=== PATIENT | female | born 1950 | race Caucasian/White ===

== ENCOUNTER 2024-12-31 22:55 | Emergency (ER) | payer MEDICARE, OTHER, SELFPAY ==
--- OUTSIDE RECORDS SUMMARY | 2024-12-28 16:39 | XMS_ITS | Encounter Summary ---
Author Organization [facility] Address [address] [place] [address] Care Team Providers Care Installment Agent Name Role Phone Marguerite Fernández DO Primary Care Provider Reason for Visit * Reason Comments Fall Rib Pain left Encounter Details Date Type Department Care Team (Late st Contact Info) Description 12/28/2024 4:39 PM CDT - 12/28/2024 5:43 PM CDT Emergency [facility] Emergency Medicine [address] [facility] [address] [place] [address] Gasper Alonzo MD [address] [place] [address] [place] [address] Closed fracture of one rib of left side, initial encounter (Primary Dx) Discharge Disposition: Home or Self Care Social History Tobacco Use Types Packs/Day Years Used Date Smoking Tobacco: Former Cigarettes 0.3 5 0 10/14/1979 - 10/13/1984 Passive Smoke Exposure: Never Smokeless Tobacco: Never Alcohol Use Standard Drinks/Week Comments Never 0 (1 standard drink = 0.6 oz pur e alcohol) Feeling Safe Answer Date Recorded Within the last year, have y ou been afraid of your partner or ex-partner? Not asked 07/21/2019 Within the last year, have y ou been humiliated or emotionally abused in other ways by your partner or ex-partner? Not asked Within the last year, have y ou been kicked, hit, slapped, or otherwise physically hurt by your partner or ex-partner? Not asked 07/21/2019 Within the last year, have y ou been raped or forced to have any kind of sexual activity by your partner or ex-partner? Not asked 07/21/2019 Social Connections Answer Date Recorded In a typical week, how many times do you talk on the phone with family, friends, or neighbors? Not asked 07/21/2019 How often do you get together with friends or re latives? Not asked 07/21/2019 How often do you attend zoroastrian or lutheran serv ices? Not asked 07/21/2019 Do you belong to any clubs o r organizations such as zoroastrian groups, unions, fraternal or athletic groups, or school groups? Not asked 07/21/2019 How often do you attend meet ings of the clubs or organizations you belong to? Not asked 07/21/2019 Are you , , di vorced, , never , or living with a partner? Not asked 07/21/2019 Financial Resource Strain Answer Date R ecorded How hard is it for you to pa y for the very basics like food, housing, medical care, and heating? Not very hard 06/09/2022 Food Insecurity Answer Date Recorded In the past 12 months, have you worried that your food would run out before you had money to buy more? Sometimes true 2022 In the past 12 months, did y ou run out of food and didn't have money to buy more? Sometimes true 06/09/2022 Transportation Needs Answer Date Record ed In the past 12 months, has l ack of transportation kept you from medical appointments or from getting medications? No 06/09/2022 Lack of Transportation (Non-Medical) Not on file 06/09/2022 Food Insecurity Answer Date Recorded Do you find you are eating l ess than you should because you can t pay for food? No 12/28/2024 Transportation Needs Answer Date Record ed Have you gone without health care because you didn t have a way to get there? 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 No 2024 Housing Stability Answer Date Recorded Do you worry you won t have a steady place to sleep or struggle to pay rent or mortgage? No 12/28/2024 Utility Needs Answer Date Recorded Do you have difficulty payin g for utility costs (electric, water or gas bills)? No 12/28/2024 Medication Needs Answer Date Recorded Have you skipped taking medi cation due to cost or worry you can t afford new medications? No 12/28/2024 Feeling Safe Answer Date Recorded Are you in a relationship wi th someone who hurts you emotionally and/or physically? 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 Gender Identity Not on file Sexual Orientation Not on file documented as of this encounter Last Filed Vital Signs Vital Sign Reading Time Taken Comments Blood Pressure 154/77 12/28/2024 5:30 PM CDT Pulse 88 12/28/2024 5:30 PM CDT Temperature 36.7 C (98 F) 12/28/2024 5:30 PM CDT Respiratory Rate 16 12/28/2024 5:30 PM CDT Oxygen Saturation 98% 12/28/2024 5:30 PM CDT Inhaled Oxygen Concentration - - Weight 100.4 kg (221 lb 6.4 oz) 12/28/2024 4:42 PM CDT Height 162.6 cm (5' 4 ) 12/28/2024 4:42 PM CDT Body Mass Index 38 12/28/2024 4:42 PM CDT documented in this encounter Discharge Instructions * Attachments The following attachments cannot be sent through Care Everywhere. * Rib Fracture (Paraguayan) * Hydrocodone ([place]aguayan) documented in this encounter Medications at Time of Discharge blood sugar diagnostic (OneTouch Verio test strips) StripIndications :Type 2 diabetes mellitus with stage 3b chronic kidney disease, without long-term current use of insulin USE 1 STRIP TO CHECK GLUCOSE ONCE DAILY 100 Each 6 12/28/2024 HYDROcodone-acet aminophen (NORCO) 5-325 mg tabletIndication s:Closed fracture of one rib of left side, initial encounter Take 1-2 Tablets by mouth every 6 hours as needed for Pain. 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 shake before using 16 Gram 06/14/2024 Restasis MultiDose 0.05 % Drops Administer 1 Drop in both eyes 2 times daily. 06/11/2023 BIOTIN ORAL Take 1 Tablet by mouth daily. OTHER 02/21/2020 acetaminophen (TYLENOL) 325 mg tablet Take 650 mg by mouth 1 time daily as needed for Pain or Other (See Comment) (spasms). 12/08/2018 CALCIUM-VITAMIN D3 ORAL Take 1 Tablet by mouth 2 times daily. 12/08/2018 documented as of this encounter ED Notes * Aliya Saldana RN - 12/28/2024 5:24 PM CDT Provider at bedside. * Aliya Saldana RN - 12/28/2024 5:23 PM CDT Water provided to patient * Aliya Saldana RN - 12/28/2024 5:02 PM CDT Back to room * Aliya Saldana RN - 12/28/2024 4:51 PM CDT Radiology at bedside to take patient to radiology by wheelchair with tech * Aliya Saldana RN - 12/28/2024 4:42 PM CDT Provider at bedside. * Aliya Saldana RN - 12/28/2024 4:42 PM CDT Patient arrives by [facility]. Patient awake alert and oriented x 4. Complains of left rib pain thathurts with movement and deep breathing. Patient states she was at [facility] walking fast and her foot got caught on a stump causing her to fall into a tree, hitting her left side. Denies any heador neck injury or pain. Denies any other injury or loss of consciousness. Abrasions to left breast. Friend at bedside * Gasper Alonzo MD - 12/28/2024 4:38 PM CDT HISTORY OF PRESENT ILLNESS Natalie Mayo, a 74 y.o. female presents to the ED with a Chief Complaint of Fall and Rib Pain Subjective This patient is a 74-year-old white female who fell while she was walking on a trail just prior to arrival. She landed on her left rib cage and has significant pain there. Did not strike her head. She has no neck pain. No pain in her extremities. REVIEW OF SYSTEMS Review of Systems Constitutional: Negative for activity change, appetite change, chills, diaphoresis, fatigue and fever. HENT: Negative for congestion, dental problem, ear pain, postnasal drip, rhinorrhea, sinus pressure, sore throat, tinnitus and trouble swallowing. Eyes: Negative for photophobia, pain, discharge, redness and visual disturbance. Respiratory: Negative for cough, chest tightness, shortness of breath and wheezing. Cardiovascular: Negative for chest pain, palpitations and leg swelling. Gastrointestinal: Negative for abdominal distention, abdominal pain, blood in stool, constipation, diarrhea, nausea and vomiting. Genitourinary: Negative for decreased urine volume, difficulty urinating, dyspareunia, dysuria, flank pain, frequency, hematuria, menstrual problem, pelvic pain, urgency, vaginal bleeding and vaginaldischarge. Musculoskeletal: Negative for arthralgias, back pain, gait problem, joint swelling, myalgias, neck pain and neck stiffness. Left rib pain. Skin: Negative for color change and rash. Neurological: Negative for dizziness, seizures, speech difficulty, weakness, light-headedness, numbness and headaches. Hematological: Negative for adenopathy. Psychiatric/Behavioral: Negative for agitation, behavioral problems, confusion, dysphoric mood, hallucinations, self-injury, sleep disturbance and suicidal ideas. The patient is not nervous/anxious. All other systems reviewed and are negative. 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 SURGICAL: Patient has a past surgical history that includes breast lumpectomy for cancer (10-16-2008); pr mastectomy simple complete (Bilateral, 01/28/2016); core needle breast biopsy (10-06-2008); pr mastectomy partial w/axillary lymphadenectomy (10/16/2008); pr bx/exc lymph node open deep axillary node (Left, 01/28/2016); section; surgical other; surgical other; hysterectomy (1985); thyroid surgery; pr breast reconstruc w othr techniq (Bilateral, 01/28/2016); us biopsy liver (11/05/09); us biopsy liver (06/04/10); parathyroidectomy (2000); appendectomy (1985); pt denies relevant surgical history (1985,2000,2008,2016); and parathyroid gland surgery (2000). FAMILY: Patient's family history includes Breast Cancer in her father, mother, and son; Breast Cancer (age of onset: 56) in her sister; Colon Cancer in her father. SOCIAL: reports that she quit smoking about 40 years ago. Her smoking use included cigarettes. She started smoking about 45 years ago. She has a 1.3 pack-year smoking history. She has never been exposed to tobacco smoke. She has never used smokeless tobacco. She reports that she is not currently sexually active and has had partner(s) who are male. She reports using the following method of control/protection: None. She reports that she does not drink alcohol and does not use drugs. No history on file. Social History Other Topics Concern Not on file ALLERGIES Iodinated contrast media and Latex HOME MEDICATIONS Discharge Medication List as of 12/28/2024 5:43 PM START taking these medications Details HYDROcodone-acetaminophen (NORCO) 5-325 mg tablet Take 1-2 Tablets by mouth every 6 hours as neededfor Pain. Max Daily Amount: 8 Tablets, Disp-30 Tablet, R-0 CONTINUE these medications which have NOT CHANGED Details LORazepam (ATIVAN) 1 mg tablet TAKE ONE TABLET BY MOUTH EVERY DAY NEEDED FOR ANXIETYThis prescription was filled on 11/07/2024. Any refills authorized will be placed on file.Disp-30 Tablet, R-2 anastrozole (ARIMIDEX) 1 mg tablet TAKE ONE TABLET BY MOUTH DAILYThis prescription was filled on 07/13/2024. Any refills authorized will be placed on file.Disp-90 Tablet, R-3 SITagliptin phosphate (Januvia) 50 mg Tablet TAKE ONE-HALF TABLET BY MOUTH DAILY with BREAKFASTThisprescription was filled on 07/13/2024. Any refills authorized will be placed on file.Disp-45 Tablet,R-2 levothyroxine 100 mcg tablet TAKE ONE TABLET BY MOUTH DAILY IN THE MORNINGThis prescription was filled on 07/13/2024. Any refills authorized will be placed on file.Disp-90 Tablet, R-1 fluticasone propionate (FLONASE) 50 mcg/spray [place], Suspension nasal inhaler Administer 2 Sprays in each nostril daily. shake before using, Disp-16 Gram, R-0 Restasis MultiDose 0.05 % Drops Administer 1 Drop in both eyes 2 times daily., RUMA BIOTIN ORAL Take 1 Tablet by mouth daily. acetaminophen (TYLENOL) 325 mg tablet Take 650 mg by mouth 1 time daily as needed for Pain or Other(See Comment) (spasms). CALCIUM-VITAMIN D3 ORAL Take 1 Tablet by mouth 2 times daily. blood sugar diagnostic (APTwaterTouch Verio test strips) Strip USE 1 STRIP TO CHECK GLUCOSE ONCE DAILY, Disp-100 Each, R-6 OTHER STOP taking these medications venlafaxine (EFFEXOR XR) 75 mg Extended Release 24 hour capsule Comments: Reason for Stopping: traZODone (DESYREL) 50 mg tablet Comments: Reason for Stopping: [id number]-[id number]-EPA-fish oil 1,000 mg Capsule Comments: Reason for Stopping: MULTIVITAMIN ORAL Comments: Reason for Stopping: Objective PHYSICAL EXAM INITIAL VS BP: (!) 159/101 (12/28/24 1642), Heart Rate: 84 bpm (12/28/24 1642), Resp: 24 (12/28/24 1642), Pulse: 81 (12/28/24 1705), Temp: 98.4 ??F (36.9 ??C) (12/28/241641), Temp src: Temporal (12/28/241641), SpO2: 99 % (12/28/241641), Height: 5' 4 (162.6 cm) (12/28/241641), Weight: 100.4 kg (221 lb 6.4oz) (12/28/241641), BMI (Calculated): (!) 37.97 (12/28/241641) No LMP recorded (lmp unknown). Patient is postmenopausal. Physical Exam Vitals and nursing note reviewed. Constitutional: General: She is in acute distress. Appearance: She is well-developed. HENT: Head: Normocephalic and atraumatic. Eyes: Conjunctiva/sclera: Conjunctivae normal. Pupils: Pupils are equal, round, and reactive to light. Cardiovascular: Rate and Rhythm: Normal rate and regular rhythm. Heart sounds: Normal heart sounds. Pulmonary: Effort: Pulmonary effort is normal. No respiratory distress. Breath sounds: Normal breath sounds. Abdominal: General: Bowel sounds are normal. Palpations: Abdomen is soft. Tenderness: There is no abdominal tenderness. Musculoskeletal: General: Tenderness present. Normal range of motion. Cervical back: Normal range of motion and neck supple. Comments: Tenderness over the left lateral rib cage. Skin: General: Skin is warm and dry. Neurological: Mental Status: She is alert and oriented to person, place, and time. Cranial Nerves: No cranial nerve deficit. Psychiatric: Behavior: Behavior normal. Thought Content: Thought content normal. DIAGNOSTICS LAB: No data to display RADIOLOGY: XR RIBS UNILATERAL LEFT W PA CHEST Radiologist Impression EKG: PROCEDURES Procedures MEDICAL DECISION MAKING AND PLAN OF CARE Medical Decision Making Chest x-ray with left rib films reveal a nondisplaced eighth rib fracture. No hemothorax or pneumothorax. Patient was given morphine in the emergency department for pain. She was discharged in stablecondition with a prescription for hydrocodone. Follow-up with primary care physician as needed. Amount and/or Complexity of Data Reviewed Radiology: ordered. Risk Prescription drug management. Clinical Scoring & Consults Medications Administered During the ED Stay from 12/28/2024 1639 to 12/29/2024 1050 Date/Time Order Dose Route Action 12/28/2024 1651 CDT morphine 4 mg/mL injection 4 mg 4 mg IV Given 12/28/2024 1650 CDT ondansetron (ZOFRAN) 4 mg/2 mL injection 4 mg 4 mg IV Given 12/28/2024 1653 CDT sodium chloride flush injection 10 mL 10 mL IV Given 12/28/2024 1651 CDT sodium chloride flush injection 10 mL 10 mL IV Given 12/28/2024 1648 CDT sodium chloride flush injection 10 mL 10 mL IV Given Discharge Medication List as of 12/28/2024 5:43 PM START taking these medications Details HYDROcodone-acetaminophen (NORCO) 5-325 mg tablet Take 1-2 Tablets by mouth every 6 hours as neededfor Pain. Max Daily Amount: 8 Tablets, Disp-30 Tablet, R-0 CONTINUE these medications which have NOT CHANGED Details LORazepam (ATIVAN) 1 mg tablet TAKE ONE TABLET BY MOUTH EVERY DAY NEEDED FOR ANXIETYThis prescription was filled on 11/07/2024. Any refills authorized will be placed on file.Disp-30 Tablet, R-2 anastrozole (ARIMIDEX) 1 mg tablet TAKE ONE TABLET BY MOUTH DAILYThis prescription was filled on 07/13/2024. Any refills authorized will be placed on file.Disp-90 Tablet, R-3 SITagliptin phosphate (Januvia) 50 mg Tablet TAKE ONE-HALF TABLET BY MOUTH DAILY with BREAKFASTThisprescription was filled on 07/13/2024. Any refills authorized will be placed on file.Disp-45 Tablet,R-2 levothyroxine 100 mcg tablet TAKE ONE TABLET BY MOUTH DAILY IN THE MORNINGThis prescription was filled on 07/13/2024. Any refills authorized will be placed on file.Disp-90 Tablet, R-1 fluticasone propionate (FLONASE) 50 mcg/spray [place], Suspension nasal inhaler Administer 2 Sprays in each nostril daily. shake before using, Disp-16 Gram, R-0 Restasis MultiDose 0.05 % Drops Administer 1 Drop in both eyes 2 times daily., RUMA BIOTIN ORAL Take 1 Tablet by mouth daily. acetaminophen (TYLENOL) 325 mg tablet Take 650 mg by mouth 1 time daily as needed for Pain or Other(See Comment) (spasms). CALCIUM-VITAMIN D3 ORAL Take 1 Tablet by mouth 2 times daily. blood sugar diagnostic (OneTouch Verio test strips) Strip USE 1 STRIP TO CHECK GLUCOSE ONCE DAILY, Disp-100 Each, R-6 OTHER STOP taking these medications venlafaxine (EFFEXOR XR) 75 mg Extended Release 24 hour capsule Comments: Reason for Stopping: traZODone (DESYREL) 50 mg tablet Comments: Reason for Stopping: msavy-9-FYR-EPA-fish oil 1,000 mg Capsule Comments: Reason for Stopping: MULTIVITAMIN ORAL Comments: Reason for Stopping: LAST VS BP: (!) 154/77 (12/28/241729), Heart Rate: 87 bpm (12/28/241729), Resp: 16 (12/28/241729), Pulse: 88 (12/28/241729), Temp: 98 ??F (36.7 ??C) (12/28/241729), Temp src: Temporal (12/28/241729), SpO2: 98 % (12/28/241729) CLINICAL IMPRESSION Diagnosis Diagnosis Comment Added By Time Added Closed fracture of one rib of left side, initial encounter [S22.32XA] Gasper Alonzo MD 12/28/2024 5:40 PM DISPOSITION, EDUCATION AND MEDICATION RECONCILIATION Medications reconciled. See after visit summary for patient education on discharged patients. ED Disposition ED Disposition Discharge Condition Stable User Gasper Alonzo MD Date/Time ThuDec 28, 2024 5:34 PM Comment -- ATTESTATION STATEMENTS documented in this encounter Miscellaneous Notes * Gen AI SERA - GENERATIVE AI HANDOFF NOTE - 12/29/2024 11:43 PM CDT ## ER_course: ## # DIAGNOSIS: Closed fracture of one rib on the left side. The patient, Natalie Mayo, a 74-year-old female, presented to the ED with left rib pain after a fall while walking on a trail. She reported significant pain in the left rib cage but denied any head or neck injury. The patient was in acute distress upon arrival. # During the ER visit, a chest x-ray with left rib films revealed a nondisplaced eighth rib fracture. There was no evidence of hemothorax or pneumothorax. The patient was administered morphine for pain management and ondansetron for nausea. Her vital signs showed elevated blood pressure at 159/101 and a BMI of 37.97, indicating obesity. ## Follow_up_orders: ## # The patient was discharged with a prescription for hydrocodone-acetaminophen (NORCO) 5-325 mg tablets, to be taken 1-2 tablets by mouth every 6 hours as needed for pain, with a maximum daily amount of 8 tablets. # Follow-up with the primary care physician as needed was recommended. ## Home_Situation: ## # No specific factors potentially impairing follow-up care were noted in the ER notes. The patient has a history of various medical conditions, including chronic kidney disease and diabetes, which may require ongoing management. documented in this encounter Plan of Treatment Upcoming Encounters Date Type Department Care Team (Late st Contact Info) Description 01/05/2025 9:40 AM CDT Office Visit [facility] Medicine [place] [address] [place] [address] Marguerite Fernández, DO [address] [place] [address] 01/16/2025 10:45 AM CDT Office Visit [facility] Endocrinology [facility] [address] [place] [address] Alfredito Roth PA [address] 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 Appointment [facility] [address] [place] [address] 02/21/2025 11:30 AM BOTTOM LIQUOR ATTENDANT Office Visit [facility] Cancer and Hematology [place] [address] [place] [address] Marisol Samuel, J2EE JAVA DEVELOPER [address] [place] [address] documented as of this encounter Procedures Procedure Name Priority Date/Time Associated Diagnosis Comments TELEMETRY REPORT 12/29/2024 9:22 AM CDT XR RIBS UNILATERAL LEFT W PA CHEST Stat 12/28/2024 5:04 PM CDT documented in this encounter Results * TELEMETRY REPORT (12/29/2024 9:22 AM CDT) us Provider Scanning ECG ORDERABLES Final Result * XR RIBS UNILATERAL LEFT W PA CHEST (12/28/2024 5:04 PM CDT) Anatomical Region Laterality Modality Chest Computed Radiogr aphy 12/28/2024 5:04 PM CDT Narrative 12/28/2024 5:20 PM CDT XR RIBS UNILATERAL LEFT W PA CHEST Reason For Exam: Fall. Diagnosis: See Reason for Exam. COMPARISON: None FINDINGS: Cardiomediastinal silhouette is within normal limits. No focal consolidation, large pleural effusion, or pneumothorax is seen. Nondisplaced left posterior eighth rib fracture is present. Procedure Note Alfredito Kessler MD - 12/28/2024 XR RIBS UNILATERAL LEFT W PA CHEST Reason For Exam: Fall. Diagnosis: See Reason for Exam. COMPARISON: None FINDINGS: Cardiomediastinal silhouette is within normal limits. No focal consolidation, large pleural effusion, or pneumothorax is seen. Nondisplaced left posterior eighth rib fracture is present. Gasper Alonzo MD DIAGNOSTIC IMAGING ORDER KIM Final Result documented in this encounter Visit Diagnoses Diagnosis Closed fracture of one rib of left side, initial encounter- Primary documented in this encounter Administered Medications Inactive Administered Medications - up to 3 most recent administrations Medication Order MAR Action Action Date Dose Rate Site morphine 4 mg/mL injection 4 mg 4 mg, IV, ONE TIME ONLY, 1 dose, On Thu12/28/24 at 1645, Routine Given 12/28/2024 4:51 PM CDT 4 mg ondansetron (ZOFRAN) 4 mg/2 mL injection 4 mg 4 mg, IV, ONE TIME ONLY, 1 dose, On Thu12/28/24 at 1645, Stat Given 12/28/2024 4:50 PM CDT 4 mg sodium chloride flush injection 10 mL 10 mL, IV, SEE ADMIN INSTRUCTIONS, Starting on Thu12/28/24 at 1651, Until Thu12/28/24 at 1948, Stat Given 12/28/2024 4:53 PM CDT 10 mL Given 12/28/2024 4:51 PM CDT 10 mL Given 12/28/2024 4:48 PM CDT 10 mL documented in this encounter Active and Recently Administered Medications Times are shown in CDT. Scheduled Medication Order 12/26/2024 12/27/2024 12/28/2024 morphine 4 mg/mL injection 4 mg (COMPLETED) 4 mg, IV, ONE TIME ONLY, 1 dose, On Thu12/28/24 at 1645, Routine 1651 (Given - Provid er: Aliya Saldana, MATT) ondansetron (ZOFRAN) 4 mg/2 mL injection 4 mg (COMPLETED) 4 mg, IV, ONE TIME ONLY, 1 dose, On Thu12/28/24 at 1645, Stat 1650 (Given - Provid er: Aliya Saldana, MATT) sodium chloride flush injection 10 mL 10 mL, IV, SEE ADMIN INSTRUCTIONS, Starting on Thu12/28/24 at 1651, Until Thu12/28/24 at 1948, Stat 1648 (Given - Provid er: Aliya Saldana RN)165 (Given - Provider: Aliya Saldana, RN)165 (Given - Provider: Aliya Saldana, MATT) documented in this encounter Additional Health Concerns Assessment Noted Time PHQ-9 Depression Total Score: 4 04/05/20 25 3:07 PM CDT documented as of this encounter Care Teams Installment Agent Relationship Specialty Start Date End Date Marguerite Fernández DO [address] [place] [address] PCP - General Family Practice 12/29/18 documented as of this encounter
--- OUTSIDE RECORDS SUMMARY | 2024-12-31 23:01 | XMS_ITS | Encounter Summary ---
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
--- OUTSIDE RECORDS SUMMARY | 2024-12-31 23:01 | XMS_ITS | Encounter Summary ---
Author Organization [facility] Address [address] [place] [address] Care Team Providers Care Computer Science Instructor Name Role Phone Marguerite Fernández DO Primary Care Provider [phone] Encounter Details Date Type Department Care Team (Latest Contact Info) Description 01/18/2001 Outpatient Historical [facility] Dereck Elder Jr., MD [address] [place] [address] RENAL & URETERAL DIS NOS (Primary Dx); Benign hypertension; HYPOCALCEMIA Social History Tobacco Use Types Packs/Day Years Used Date Smoking Tobacco: Never Assessed Comments Unknown Sex and Gender Information Value Date Recorded Sex Assigned at Not on file Legal Sex Female 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
--- OUTSIDE RECORDS SUMMARY | 2024-12-31 23:01 | XMS_ITS | Encounter Summary ---
Author Organization [facility] Address [address] [place] [address] Care Team Providers Care Outbound Sales Consultant Name Role Phone Marguerite Fernández DO Primary Care Provider [phone] Encounter Details Date Type Department Care Team (Latest Contact Info) Description 03/30/2001 Outpatient Historical [facility] Dereck Elder Jr., MD [address] [place] [address] HYPOCALCEMIA (Primary Dx) Social History Tobacco Use Types Packs/Day Years Used Date Smoking Tobacco: Never Assessed Comments Unknown Sex and Gender Information Value Date Recorded Sex Assigned at Not on file 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
--- OUTSIDE RECORDS SUMMARY | 2024-12-31 23:01 | XMS_ITS | Encounter Summary ---
Author Organization [facility] Address [address] [place] [address] Care Team Providers Care Drug Coordinator Name Role Phone Marguerite Fernández DO Primary Care Provider [phone] Encounter Details Date Type Department Care Team (Latest Contact Info) Description 03/18/2001 Outpatient Historical [facility] Endocrinology-[facility] [address] [place] [address] Kobi Hilario MD NO ADDRESS ON FILE HYPOCALCEMIA (Primary Dx); HYPOTHYROIDISM NOS Social History Tobacco Use Types Packs/Day Years Used Date Smoking Tobacco: Never Assessed Comments Unknown Sex and Gender Information Value Date Recorded Sex Assigned at Not on file Legal Sex Female 4:06 AM DATABASE ADMINISTRATION ASSOCIATE Gender Identity Not on file Sexual Orientation Not on file documented as of this encounter Plan of Treatment Not on file documented as of this encounter Visit Diagnoses Diagnosis Hypocalcemia- Primary Unspecified hypothyroidism documented in this encounter Care Teams Drug Coordinator Relationship Specialty Start Date End Date Marguerite Fernández DO [address] [place] [address] PCP - General Family Practice 12/29/18 documented as of this encounter
--- OUTSIDE RECORDS SUMMARY | 2024-12-31 23:01 | XMS_ITS | Encounter Summary ---
Author Organization [facility] Address [address] [place] [address] Care Team Providers Care Nutritional Services Director Name Role Phone Marguerite Fernández DO Primary Care Provider Encounter Details Date Type Department Care Team (Latest Contact Info) Description 01/04/2001 Outpatient Historical [facility] Dereck Elder Jr., MD [address] [place] [address] Hypocalcemia (Primary Dx) Social History Tobacco Use Types Packs/Day Years Used Date Smoking Tobacco: Never Assessed Comments Unknown Sex and Gender Information Value Date Recorded Sex Assigned at Not on file Legal Sex Female 4:06 AM SWABBER Gender Identity Not on file Sexual Orientation Not on file documented as of this encounter Plan of Treatment Not on file documented as of this encounter Visit Diagnoses Diagnosis Hypocalcemia- Primary documented in this encounter Care Teams Nutritional Services Director Relationship Specialty Start Date End Date Marguerite Fernández DO [address] [place] [address] PCP - General Family Practice 12/29/18 documented as of this encounter
--- OUTSIDE RECORDS SUMMARY | 2024-12-31 23:01 | XMS_ITS | Encounter Summary ---
Author Organization [facility] Address [address] [place] [address] Care Team Providers Care Splicing Machine Operator Name Role Phone Marguerite Fernández DO Primary Care Provider [phone] Encounter Details Date Type Department Care Team (Latest Contact Info) Description 01/11/2001 Outpatient Historical [facility] Justo Bhatti MD [address] [place] [address] Other specified aftercare following surgery (Primary Dx) Social History Tobacco Use Types Packs/Day Years Used Date Smoking Tobacco: Never Assessed Comments Unknown Sex and Gender Information Value Date Recorded Sex Assigned at Not on file Legal Sex Female 4:06 AM PLASTIC CABLEMAKING MACHINE OPERATOR Gender Identity Not on file Sexual Orientation Not on file documented as of this encounter Plan of Treatment Not on file documented as of this encounter Visit Diagnoses Diagnosis Other specified aftercare following surgery- Primary documented in this encounter Care Teams Splicing Machine Operator Relationship Specialty Start Date End Date Marguerite Fernández DO [address] [place] [address] PCP - General Family Practice 12/29/18 documented as of this encounter
--- OUTSIDE RECORDS SUMMARY | 2024-12-31 23:01 | XMS_ITS | Encounter Summary ---
Author Organization [facility] Address [address] [place] [address] Care Team Providers Care Application Assistant Name Role Phone Marguerite Fernández DO Primary Care Provider Encounter Details Date Type Department Care Team (Latest Contact Info) Description 05/24/2001 Outpatient Historical [facility] Dereck Elder Jr., MD [address] [place] [address] HYPOCALCEMIA (Primary Dx) Social History Tobacco Use Types Packs/Day Years Used Date Smoking Tobacco: Never Assessed Comments Unknown Sex and Gender Information Value Date Recorded Sex Assigned at Not on file Legal Sex Female 4:06 AM CLAY PIGEON LOADER Gender Identity Not on file Sexual Orientation Not on file documented as of this encounter Plan of Treatment Not on file documented as of this encounter Visit Diagnoses Diagnosis Hypocalcemia- Primary documented in this encounter Care Teams Application Assistant Relationship Specialty Start Date End Date Marguerite Fernández DO [address] [place] [address] PCP - General Family Practice 12/29/18 documented as of this encounter
--- OUTSIDE RECORDS SUMMARY | 2024-12-31 23:01 | XMS_ITS | Encounter Summary ---
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
--- OUTSIDE RECORDS SUMMARY | 2024-12-31 23:01 | XMS_ITS | Encounter Summary ---
Author Organization [facility] Address [address] [place] [address] Care Team Providers Care Metals Analyst Name Role Phone Marguerite Fernández DO Primary Care Provider Encounter Details Date Type Department Care Team (Latest Contact Info) Description 01/11/2001 Outpatient Historical [facility] Endocrinology-[facility] [place] [address] [place] [address] Kobi Hilario MD NO ADDRESS ON FILE Hypocalcemia (Primary Dx); Unspecified hypothyroidism; Unspecified disorder of kidney and ureter Social History Tobacco Use Types Packs/Day Years Used Date Smoking Tobacco: Never Assessed Comments Unknown Sex and Gender Information Value Date Recorded Sex Assigned at Not on file Legal Sex Female 4:06 AM TRANSIT COACH OPERATOR Gender Identity Not on file Sexual Orientation Not on file documented as of this encounter Plan of Treatment Not on file documented as of this encounter Visit Diagnoses Diagnosis Hypocalcemia- Primary Unspecified hypothyroidism Unspecified disorder of kidney and ureter documented in this encounter Care Teams Metals Analyst Relationship Specialty Start Date End Date Marguerite Fernández DO [address] [place] [address] PCP - General Family Practice 12/29/18 documented as of this encounter
--- OUTSIDE RECORDS SUMMARY | 2024-12-31 23:01 | XMS_ITS | Encounter Summary ---
Author Organization [facility] Address [address] [place] [address] Care Team Providers Care Parker Name Role Phone Marguerite Fernández DO Primary Care Provider [phone] Encounter Details Date Type Department Care Team (Latest Contact Info) Description 04/26/2001 Outpatient Historical [facility] Dereck Elder Jr., MD [address] [place] [address] HYPOCALCEMIA (Primary Dx); HYPERPARATHYROIDISM Social History Tobacco Use Types Packs/Day Years Used Date Smoking Tobacco: Never Assessed Comments Unknown Sex and Gender Information Value Date Recorded Sex Assigned at Not on file Legal Sex Female 4:06 AM MURAL ARTIST Gender Identity Not on file Sexual Orientation Not on file documented as of this encounter Plan of Treatment Not on file documented as of this encounter Visit Diagnoses Diagnosis Hypocalcemia- Primary Hyperparathyroidism documented in this encounter Care Teams Parker Relationship Specialty Start Date End Date Marguerite Fernández DO [address] [place] [address] PCP - General Family Practice 12/29/18 documented as of this encounter
--- OUTSIDE RECORDS SUMMARY | 2024-12-31 23:02 | XMS_ITS | Encounter Summary ---
Author Organization [facility] Address [address] [place] [address] Care Team Providers Care Auto Washer Name Role Phone Marguerite Fernández DO Primary Care Provider Encounter Details Date Type Department Care Team (Latest Contact Info) Description 07/18/2002 Outpatient Historical [facility] Endocrinology-[facility] [address] [place] [address] Kobi Hilario MD NO ADDRESS ON FILE HYPOTHYROIDISM NOS (Primary Dx); HYPERPARATHYROIDISM Social History Tobacco Use Types Packs/Day Years Used Date Smoking Tobacco: Never Assessed Comments Unknown Sex and Gender Information Value Date Recorded Sex Assigned at Not on file 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
--- OUTSIDE RECORDS SUMMARY | 2024-12-31 23:02 | XMS_ITS | Encounter Summary ---
Author Organization [facility] Address [address] [place] [address] Care Team Providers Care Enroller Name Role Phone Marguerite Fernández DO Primary Care Provider Encounter Details Date Type Department Care Team (Late st Contact Info) Description 10/21/2000 Outpatient Historical [facility] Kobi Hilario MD NO ADDRESS ON FILE Malig roque thyroid (Primary Dx) Social History Tobacco Use Types Packs/Day Years Used Date Smoking Tobacco: Never Assessed Comments Unknown Sex and Gender Information Value Date Recorded Sex Assigned at Not on file Legal Sex Female 4:06 AM UNIVERSITY TUTOR Gender Identity Not on file Sexual Orientation Not on file documented as of this encounter Plan of Treatment Not on file documented as of this encounter Visit Diagnoses Diagnosis Malig roque thyroid- Primary Malignant neoplasm of thyroid gland documented in this encounter Care Teams Enroller Relationship Specialty Start Date End Date Marguerite Fernández DO [address] [place] [address] PCP - General Family Practice 12/29/18 documented as of this encounter
--- OUTSIDE RECORDS SUMMARY | 2024-12-31 23:02 | XMS_ITS | Encounter Summary ---
Author Organization [facility] Address [address] [place] [address] Care Team Providers Care Health Companion Name Role Phone Marguerite Fernández DO Primary Care Provider Encounter Details Date Type Department Care Team (Latest Contact Info) Description 11/09/2000 Outpatient Historical [facility] Dereck Elder Jr., MD [address] [place] [address] Hypercalcemia (Primary Dx) Social History Tobacco Use Types Packs/Day Years Used Date Smoking Tobacco: Never Assessed Comments Unknown Sex and Gender Information Value Date Recorded Sex Assigned at Not on file 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
--- OUTSIDE RECORDS SUMMARY | 2024-12-31 23:02 | XMS_ITS | Encounter Summary ---
Author Organization [facility] Address [address] [place] [address] Care Team Providers Care Shopfitter Name Role Phone Marguerite Fernández DO Primary Care Provider Encounter Details Date Type Department Care Team (Late st Contact Info) Description 10/31/2009 Ancillary Orders [facility] [address] [place] [address] Andrew Dyer MD [address] [place] [address] Abnormal Mammogram, Unspecified Social History Tobacco Use Types Packs/Day Years Used Date Smoking Tobacco: Former Cigarettes 0 10/14/1979 - 10/13/1981 Alcohol Use Standard Drinks/Week Comments No 0 (1 standard drink = 0.6 oz pur e alcohol) Comments No Sex and Gender Information Value Date Recorded Sex Assigned at Not on file Legal Sex Female 4:06 AM INVERTED BLOCK OPERATOR Gender Identity Not on file Sexual Orientation Not on file documented as of this encounter Plan of Treatment Not on file documented as of this encounter Results * MAMMO DIGITAL DIAG UNI RIGHT (04/26/2010 11:20 AM INVERTED BLOCK OPERATOR) Anatomical Region Laterality Modality Breast Right Mammography Narrative 04/30/2010 1:23 PM INVERTED BLOCK OPERATOR UNILATERAL DIGITAL DIAGNOSTIC MAMMOGRAM RIGHT BREAST: The patient had a right-sided lumpectomy laterally in the right breast. She presents for continued surveillance. The lumpectomy was October 16, 2008. Unilateral right-sided imaging today shows a small amount of tissue in a pattern similar to the prior studies dating back to 2005. The right-sided lumpectomy site shows a few scattered benign type calcifications which may in fact simply represent early calcifications of fat necrosis. There does appear to be a small forming oil cyst in this region as well. The histology of the lumpectomy site is noted. This digital mammogram was also analyzed by the Computer Aided Detection System (CAD), R2 ImageChecker, Version 8.3. The patient received a result/recommendation letter. SUMMARY: Satisfactory right breast post-lumpectomy. The patient will be due for bilateral diagnostic imaging in six months' time to allow two full years surveillance. At that time, magnification views of the lumpectomy site in the CC and lateral position should be undertaken as well as the conventional views. Findings were discussed with the patient. Sherri Procedure Note Saqib Taylor MD - 04/30/2010 UNILATERAL DIGITAL DIAGNOSTIC MAMMOGRAM RIGHT BREAST: The patient had a right-sided lumpectomy laterally in the right breast.She presents for continued surveillance. The lumpectomy was September. Unilateral right-sided imaging today shows a small amount of tissue in apattern similar to the prior studies dating back to 2005. The right-sidedlumpectomy site shows a few scattered benign type calcifications which mayin fact simply represent early calcifications of fat necrosis. There doesappear to be a small forming oil cyst in this region as well. The histology of the lumpectomy site is noted. This digital mammogram was also analyzed by the Computer Aided DetectionSystem (CAD), R2 ImageChecker, Version 8.3. The patient received a result/recommendation letter. SUMMARY: Satisfactory right breast post-lumpectomy. The patient will bedue for bilateral diagnostic imaging in six months' time to allow two fullyears surveillance. At that time, magnification views of the lumpectomysite in the CC and lateral position should be undertaken as well as theconventional views. Findings were discussed with the patient. Sherri us Andrew Dyer MD MAMMO ORDERABLES Final Result documented in this encounter Visit Diagnoses Diagnosis Abnormal mammogram, unspecified Abnormal mammogram, unspecified documented in this encounter Care Teams Shopfitter Relationship Specialty Start Date End Date Marguerite Fernández DO [address] [place] [address] PCP - General Family Practice 12/29/18 documented as of this encounter
--- OUTSIDE RECORDS SUMMARY | 2024-12-31 23:02 | XMS_ITS | Encounter Summary ---
Author Organization [facility] Address [address] [place] [address] Care Team Providers Care Wire Frame Lampshade Maker Name Role Phone Marguerite Fernández DO Primary Care Provider Encounter Details Date Type Department Care Team (Late st Contact Info) Description 05/11/2009 Ancillary Orders [facility] Gen Spec Surg [place] [address] [place] [address] Andrew Dyer MD [address] [place] [address] Abnormal Mammogram, Unspecified Social History Tobacco Use Types Packs/Day Years Used Date Smoking Tobacco: Former Cigarettes 0 10/14/1979 - 10/13/1981 Alcohol Use Standard Drinks/Week Comments No 0 (1 standard drink = 0.6 oz pur e alcohol) Comments No Sex and Gender Information Value Date Recorded Sex Assigned at Not on file Legal Sex Female 4:06 AM THERAPEUTIC SPECIALIST Gender Identity Not on file Sexual Orientation Not on file documented as of this encounter Plan of Treatment Not on file documented as of this encounter Visit Diagnoses Diagnosis Abnormal mammogram, unspecified documented in this encounter Care Teams Wire Frame Lampshade Maker Relationship Specialty Start Date End Date Marguerite Fernández DO [address] [place] [address] PCP - General Family Practice 10/9/19 documented as of this encounter
--- OUTSIDE RECORDS SUMMARY | 2024-12-31 23:02 | XMS_ITS | Encounter Summary ---
Author Organization [facility] Address [address] [place] [address] Phone Care Team Providers Care Painter Touch Up Name Role Phone Marguerite Fernández DO Primary Care Provider Encounter Details Date Type Department Care Team (Late st Contact Info) Description 08/27/2020 Orders Only [facility] [address] [place] [address] Myles Braxton MD [address] [place] [address] Stage 3b chronic kidney disease (HCC) Social History Tobacco Use Types Packs/Day Years Used Date Smoking Tobacco: Never Smokeless Tobacco: Never Alcohol Use Standard Drinks/Week Comments Never 0 (1 standard drink = 0.6 oz pur e alcohol) AUDIT-C Answer Date Recorded Frequency of Alcohol Consumption Never 02/07/2019 Average Number of Drinks Not on file 019 Frequency of Binge Drinking Not on file 01/21 Comments Unknown Sex and Gender Information Value Date Recorded Sex Assigned at Not on file Legal Sex Female 9:10 AM EDT Gender Identity Not on file Sexual Orientation Not on file documented as of this encounter Plan of Treatment Not on file documented as of this encounter Visit Diagnoses Diagnosis Stage 3b chronic kidney disease (HCC) documented in this encounter Care Teams Painter Touch Up Relationship Specialty Start Date End Date Marguerite Fernández DO PCP - General Family Medicine 10/18/19 documented as of this encounter
--- OUTSIDE RECORDS SUMMARY | 2024-12-31 23:02 | XMS_ITS | Encounter Summary ---
Author Organization [facility] Address [address] [place] [address] Care Team Providers Care Ditch Inspector Name Role Phone Marguerite Fernández DO Primary Care Provider Encounter Details Date Type Department Care Team (Latest Contact Info) Description 08/01/2005 Outpatient Historical [facility] Endocrinology-[place] [address] [place] [address] Kobi Hilario MD NO ADDRESS ON FILE Unspecified Hypothyroidism (Primary Dx) Social History Tobacco Use Types Packs/Day Years Used Date Smoking Tobacco: Never Assessed Comments Unknown Sex and Gender Information Value Date Recorded Sex Assigned at Not on file Legal Sex Female 4:06 AM STROBOROMA OPERATOR Gender Identity Not on file Sexual Orientation Not on file documented as of this encounter Plan of Treatment Not on file documented as of this encounter Visit Diagnoses Diagnosis Unspecified hypothyroidism- Primary documented in this encounter Care Teams Ditch Inspector Relationship Specialty Start Date End Date Marguerite Fernández DO [address] [place] [phone] PCP - General Family Practice 12/29/18 documented as of this encounter
--- OUTSIDE RECORDS SUMMARY | 2024-12-31 23:02 | XMS_ITS | Encounter Summary ---
Author Organization [facility] Address [address] [place] [address] Care Team Providers Care Rice Drier Operator Name Role Phone Marguerite Fernández DO Primary Care Provider Encounter Details Date Type Department Care Team (Latest Contact Info) Description 10/18/2001 Outpatient Historical [facility] Breast [place] Ravi Duque [place] [address] 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
--- OUTSIDE RECORDS SUMMARY | 2024-12-31 23:02 | XMS_ITS | Encounter Summary ---
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) Social History Tobacco Use Types Packs/Day Years Used Date Smoking Tobacco: Never Assessed Comments Unknown Sex and Gender Information Value Date Recorded Sex Assigned at Not on file 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
--- OUTSIDE RECORDS SUMMARY | 2024-12-31 23:02 | XMS_ITS | Encounter Summary ---
Author Organization [facility] Address [address] [place] [address] Care Team Providers Care Work Over Rig Operator Name Role Phone Marguerite Fernández DO Primary Care Provider Encounter Details Date Type Department Care Team (Latest Contact Info) Description 10/23/2000 Outpatient Historical [facility] Dereck Elder Jr., MD [address] [place] [phone] Hypocalcemia (Primary Dx) Social History Tobacco Use Types Packs/Day Years Used Date Smoking Tobacco: Never Assessed Comments Unknown Sex and Gender Information Value Date Recorded Sex Assigned at Not on file 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
--- OUTSIDE RECORDS SUMMARY | 2024-12-31 23:02 | XMS_ITS | Encounter Summary ---
Author Organization [facility] Address [address] [place] [address] Care Team Providers Care Buckler And Lacer Name Role Phone Marguerite Fernández DO Primary Care Provider Encounter Details Date Type Department Care Team (Late st Contact Info) Description 11/08/2010 Ancillary Orders [facility] Pre-Registration [place] CALL TO MAKE APPOINTMENT ONLY [address] [place] [address] Dereck Elder Jr., MD [address] [place] [address] Liver function test abnormality Social History Tobacco Use Types Packs/Day Years Used Date Smoking Tobacco: Former Cigarettes 0 10/14/1979 - 10/13/1981 Smokeless Tobacco: Never Alcohol Use Standard Drinks/Week Comments No 0 (1 standard drink = 0.6 oz pur e alcohol) Comments No Sex and Gender Information Value Date Recorded Sex Assigned at Not on file 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
--- OUTSIDE RECORDS SUMMARY | 2024-12-31 23:02 | XMS_ITS | Encounter Summary ---
Author Organization [facility] Address [address] [place] [address] Care Team Providers Care Ice Puller Name Role Phone Marguerite Fernández DO Primary Care Provider Encounter Details Date Type Department Care Team (Latest Contact Info) Description 11/06/2000 Outpatient Historical [facility] Dereck Elder Jr., MD [address] [place] [phone] Other abnormal blood chemistry (Primary Dx) Social History Tobacco Use Types Packs/Day Years Used Date Smoking Tobacco: Never Assessed Comments Unknown Sex and Gender Information Value Date Recorded Sex Assigned at Not on file 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
--- OUTSIDE RECORDS SUMMARY | 2024-12-31 23:02 | XMS_ITS | Encounter Summary ---
Author Organization [facility] Address [address] [place] [address] Care Team Providers Care Diesel Instructor Name Role Phone Marguerite Fernández DO Primary Care Provider Encounter Details Date Type Department Care Team (Latest Contact Info) Description 08/01/2004 Outpatient Historical [facility] Endocrinology-[place] [address] [place] [address] Kobi Hilario MD NO ADDRESS ON FILE HYPOTHYROIDISM NOS (Primary Dx) Social History Tobacco Use Types Packs/Day Years Used Date Smoking Tobacco: Never Assessed Comments Unknown Sex and Gender Information Value Date Recorded Sex Assigned at Not on file 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
--- OUTSIDE RECORDS SUMMARY | 2024-12-31 23:02 | XMS_ITS | Encounter Summary ---
Author Organization [facility] Address [address] [place] [facility] [place] [address] Care Team Providers Care Floriculturist Name Role Phone Marguerite Fernández DO Primary Care Provider Encounter Details Date Type Department Care Team (Latest Contact Info) Description 09/11/2008 Ancillary Orders [facility] [address] [facility] [address] [place] [phone] Kobi Hilario MD NO ADDRESS ON FILE Other Abnormal Findings on Radiological Examination of Breast Social History Tobacco Use Types Packs/Day Years Used Date Smoking Tobacco: Never Assessed Comments No Sex and Gender Information Value Date Recorded Sex Assigned at Not on file Legal Sex Female 4:06 AM ROBOTYPE OPERATOR Gender Identity Not on file Sexual Orientation Not on file documented as of this encounter Plan of Treatment Not on file documented as of this encounter Results * MAMMO DIGITAL DIAG UNI RIGHT (09/27/2008 11:23 AM CDT) Anatomical Region Laterality Modality Breast Right Mammography Narrative 09/27/2008 1:14 PM CDT RIGHT DIGITAL ADDITIONAL VIEWS AND ULTRASOUND: 09/27/08 The patient had a screening exam on 09/06/08, and in the upper posterior aspect of the right breast on the MLO view, there was a 9 x 13 mm nodule with a single calcification within it. This was not well visualized on the craniocaudal view. Right exaggerated craniocaudal and true lateral views are obtained today. These views confirm the nodule containing a single large, round, peripheral type calcification. The margins are slightly ill-defined. This nodule is in the posterior third of the right breast, at the 10 to 11 o'clock position. The magnified views show that the margins of this mass are slightly ill-defined but no additional calcifications are seen. This digital mammogram was also analyzed by the Computer Aided Detection System (CAD), R2 ImageChecker, Version 8.3. RIGHT BREAST ULTRASOUND: Ultrasound of the right breast, 10 to 11 o'clock position, shows some small cysts, more anterior in the breast. However, in the posterior third of the breast there is a hypoechoic, slightly ill-defined nodule with mild shadowing, measuring about 10 x 7 x 11 mm, which does show some hypervascularity. This nodule would be considered suspicious and I would recommend ultrasound-guided needle core biopsy for a tissue diagnosis. Following the ultrasound, I visited with the patient and explained the finding and recommendation to her. She has agreed to undergo the biopsy. She was seen by our biopsy coordinator today in order to be scheduled to have that procedure done another day. The patient received a result/recommendation letter. CONCLUSION: I would recommend right breast ultrasound-guided needle core biopsy. Procedure Note Yessenia Lane MD - 09/28/2008 RIGHT DIGITAL ADDITIONAL VIEWS AND ULTRASOUND: 09/27/08 The patient had a screening exam on 09/06/08, and in the upper posterioraspect of the right breast on the MLO view, there was a 9 x 13 mm nodulewith a single calcification within it. This was not well visualized onthe craniocaudal view. Right exaggerated craniocaudal and true lateral views are obtained today.These views confirm the nodule containing a single large, round,peripheral type calcification. The margins are slightly ill-defined.This nodule is in the posterior third of the right breast, at the 10 to 11o'clock position. The magnified views show that the margins of this massare slightly ill-defined but no additional calcifications are seen. This digital mammogram was also analyzed by the Computer Aided DetectionSystem (CAD), R2 ImageChecker, Version 8.3. RIGHT BREAST ULTRASOUND: Ultrasound of the right breast, 10 to 11 o'clockposition, shows some small cysts, more anterior in the breast. However,in the posterior third of the breast there is a hypoechoic, slightlyill-defined nodule with mild shadowing, measuring about 10 x 7 x 11 mm,which does show some hypervascularity. This nodule would be consideredsuspicious and I would recommend ultrasound-guided needle core biopsy fora tissue diagnosis. Following the ultrasound, I visited with the patient and explained thefinding and recommendation to her. She has agreed to undergo the biopsy.She was seen by our biopsy coordinator today in order to be scheduled tohave that procedure done another day. The patient received a result/recommendation letter. CONCLUSION: I would recommend right breast ultrasound-guided needle corebiopsy. us Kobi Hilario MD MAMMO ORDERABLES Final Resul t documented in this encounter Visit Diagnoses Diagnosis Other (abnormal) findings on radiological examination of breast Other (abnormal) findings on radiological examination of breast documented in this encounter Care Teams Floriculturist Relationship Specialty Start Date End Date Marguerite Fernández DO [address] [place] [address] PCP - General Family Practice 12/29/18 documented as of this encounter
--- OUTSIDE RECORDS SUMMARY | 2024-12-31 23:02 | XMS_ITS | Encounter Summary ---
Author Organization [facility] Address [address] [place] [address] Care Team Providers Care Bond Manager Name Role Phone Marguerite Fernández DO Primary Care Provider Encounter Details Date Type Department Care Team (Latest Contact Info) Description 10/20/2001 Outpatient Historical [facility] Dereck Elder Jr., MD [address] [place] [phone] HYPOCALCEMIA (Primary Dx) Social History Tobacco Use Types Packs/Day Years Used Date Smoking Tobacco: Never Assessed Comments Unknown Sex and Gender Information Value Date Recorded Sex Assigned at Not on file 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
--- OUTSIDE RECORDS SUMMARY | 2024-12-31 23:02 | XMS_ITS | Encounter Summary ---
Author Organization [facility] Address [address] [place] [address] Care Team Providers Care Brown Sourer Name Role Phone Marguerite Fernández DO Primary Care Provider Encounter Details Date Type Department Care Team (Late st Contact Info) Description 09/27/2008 Ancillary Orders [facility] [address] [place] [address] Kobi Hilario MD NO ADDRESS ON FILE Social History Tobacco Use Types Packs/Day Years Used Date Smoking Tobacco: Never Assessed Comments No Sex and Gender Information Value Date Recorded Sex Assigned at Not on file Legal Sex Female 4:06 AM 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
--- OUTSIDE RECORDS SUMMARY | 2024-12-31 23:02 | XMS_ITS | Encounter Summary ---
Author Organization [facility] Address [address] [place] [address] Care Team Providers Care Drapery Rod Assembler Name Role Phone Marguerite Fernández DO Primary Care Provider [phone] Encounter Details Date Type Department Care Team (Late st Contact Info) Description 10/02/[address] 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
--- OUTSIDE RECORDS SUMMARY | 2024-12-31 23:02 | XMS_ITS | Encounter Summary ---
Author Organization [facility] Address [address] [place] [address] Care Team Providers Care Water Technician Name Role Phone Marguerite Fernández DO Primary Care Provider Encounter Details Date Type Department Care Team (Latest Contact Info) Description 10/21/2000 Outpatient Historical [facility] [place] [address] [place] [address] Kobi Hilario MD NO ADDRESS ON FILE Hypocalcemia (Primary Dx) Social History Tobacco Use Types Packs/Day Years Used Date Smoking Tobacco: Never Assessed Comments Unknown Sex and Gender Information Value Date Recorded Sex Assigned at Not on file Legal Sex Female 4:06 AM PHARMACY INNOVATION ASSISTANT Gender Identity Not on file Sexual Orientation Not on file documented as of this encounter Plan of Treatment Not on file documented as of this encounter Visit Diagnoses Diagnosis Hypocalcemia- Primary documented in this encounter Care Teams Water Technician Relationship Specialty Start Date End Date Marguerite Fernández DO [address] [place] [address] PCP - General Family Practice 12/29/18 documented as of this encounter
--- OUTSIDE RECORDS SUMMARY | 2024-12-31 23:02 | XMS_ITS | Encounter Summary ---
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
--- OUTSIDE RECORDS SUMMARY | 2024-12-31 23:02 | XMS_ITS | Encounter Summary ---
Author Organization [facility] Address [address] [facility] [address] Care Team Providers Care Campaign Director Name Role Phone Marguerite Fernández Primary Care Provider [phone] Reason for Referral * Outpatient Services (Routine) - Closed Specialty Diagnoses / Procedures Referred By Contac evelio Referred To Contact Diagnoses Abnormal mammogram, unspecified Procedures MAMMO DIGITAL DIAG UNI LEFT Komal Mccall APN [address] [address] Phone: tel: fax: [facility] Pre-Registration [place] CALL TO MAKE APPOINTMENT ONLY [address] [place] [address] Phone: tel: fax: Referral ID Status Reason Start Date Expiration Date V isits Requested Visits Authorized [id number] Closed F [facility] TO SCHEDULE (S[facility]) 12/05/2013 01/05/2015 1 1 Encounter Details Date Type Department Care Team (Latest Contact Info) Description 12/05/[address] [facility] Pre-Registration [place] CALL TO MAKE APPOINTMENT ONLY [address] [place] [phone] Komal Mccall APN [address] [id number] Abnormal mammogram, unspecified (Primary Dx) Social History Tobacco Use Types Packs/Day Years Used Date Smoking Tobacco: Former Cigarettes 0 10/14/1979 - 10/13/1981 Smokeless Tobacco: Never Alcohol Use Standard Drinks/Week Comments No 0 (1 standard drink = 0.6 oz pur e alcohol) Comments No Sex and Gender Information Value Date Recorded Sex Assigned at Not on file Legal Sex Female 4:06 AM WELDER/FITTER Gender Identity Not on file Sexual Orientation Not on file Occupation Industry Job Start Date Job End Date Not on file Not on file Not on file Not on file Not on file Not on file Not on file Not on file documented as of this encounter Plan of Treatment Not on file documented as of this encounter Results * (ABNORMAL) MAMMO DIGITAL DIAG UNI LEFT (05/15/2014 10:30 AM WELDER/FITTER) Anatomical Region Laterality Modality Breast Left Mammography 05/15/2014 9:39 AM WELDER/FITTER Narrative 05/15/2014 2:27 PM WELDER/FITTER Left Diagnostic Mammogram: 05/15/2014 The patient was here for a workup on 11/14/2013 for areas of nodular tissue asymmetry and scattered calcifications on the left. No suspicious finding was confirmed and a 6 month followup was recommended. Left craniocaudal and oblique views are obtained and supplemented with left craniocaudal and true lateral magnified views. The parenchymal pattern is stable. No dominant masses are seen. There is no evidence of distortion or spiculation. Comparison is made with prior exams of 11/14/2013 and 10/28/2013 and multiple prior exams going back to 08/13/2007. No significant change is seen on the left. The patient was given a verbal and written report today. No significant change is seen with respect to nodular tissue asymmetry and scattered calcifications. This digital mammogram was also analyzed by the Computer Aided Detection System (CAD), Row44 ImageChecker, Version 8.3. CONCLUSION: No significant change is seen on the left. I would recommend bilateral followup diagnostic mammogram in 6 months' time to include the four routine views and the magnified views on the left. Patient received a result/recommendation letter. Mimi 1026 AM - uploaded from [employer] - us Komal P Mccall PHONE CIRCUIT OPERATOR MAMMO ORDERABLES Final Result documented in this encounter Visit Diagnoses Diagnosis Abnormal mammogram, unspecified- Primary Abnormal mammogram, unspecified documented in this encounter Care Teams Campaign Director Relationship Specialty Start Date End Date Marguerite Fernández DO [address] [place] [address] PCP - General Family Practice 12/29/18 documented as of this encounter
--- OUTSIDE RECORDS SUMMARY | 2024-12-31 23:02 | XMS_ITS | Encounter Summary ---
Author Organization [facility] Address [address] [place] [address] Care Team Providers Care Strategy Specialist Name Role Phone Marguerite Fernández DO Primary Care Provider Encounter Details Date Type Department Care Team (Latest Contact Info) Description 08/07/2006 Outpatient Historical [facility] Endocrinology-[place] [facility] [place] [address] [place] [address] Kobi Hilario MD NO ADDRESS ON FILE Unspecified Hypothyroidism (Primary Dx); Unspecified Essential Hypertension Social History Tobacco Use Types Packs/Day Years Used Date Smoking Tobacco: Never Assessed Comments Unknown Sex and Gender Information Value Date Recorded Sex Assigned at Not on file 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
--- OUTSIDE RECORDS SUMMARY | 2024-12-31 23:02 | XMS_ITS | Encounter Summary ---
Author Organization [facility] Address [address] [place] [address] Care Team Providers Care Insurance Producer Name Role Phone Marguerite Fernández DO Primary Care Provider Encounter Details Date Type Department Care Team (Latest Contact Info) Description 12/09/2000 Outpatient Historical [facility] Dereck Elder Jr., MD [address] [place] [phone] Hypocalcemia (Primary Dx) Social History Tobacco Use Types Packs/Day Years Used Date Smoking Tobacco: Never Assessed Comments Unknown Sex and Gender Information Value Date Recorded Sex Assigned at Not on file 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
--- OUTSIDE RECORDS SUMMARY | 2024-12-31 23:02 | XMS_ITS | Encounter Summary ---
Author Organization [facility] Address [address] [place] [address] Care Team Providers Care Crocheter Hand Name Role Phone Marguerite Fernández Primary Care Provider Encounter Details Date Type Department Care Team (Late st Contact Info) Description 09/06/2008 Ancillary Orders [facility] [address] [place] [address] Kobi Hilario MD NO ADDRESS ON FILE Other Screening Mammogram Social History Tobacco Use Types Packs/Day Years Used Date Smoking Tobacco: Never Assessed Comments No Sex and Gender Information Value Date Recorded Sex Assigned at Not on file 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 No current breast complaints. Comparison is made to 08/13/07, 08/07/06, and 08/01/05 studies. A moderate amount of heterogeneous nodular breast tissue, bilaterally. Overall parenchymal pattern is similar to the previous studies. In the upper posterior aspect of the right breast on the MLO view there is a 9 x 13 mm oval nodular density appearing more prominent than on prior studies. There is a single calcification associated with that. The calcification has benign type features and is stable. A discrete entity not seen on the MLO view though it may be obscured far laterally. This digital mammogram was also analyzed by the Computer Aided Detection System (CAD), R2 ImageChecker, Version 8.3. SUMMARY: Nodular density on the right needing further evaluation. Initially, right MLO, focal compression MLO, and conventional true lateral views should be obtained. A lateral exaggerated CC view and a focal compression CC view laterally should be obtained in an attempt to triangulate this. Stable left breast. Procedure Note Saqib Taylor MD - 09/20/2008 DIGITAL BILATERAL SCREENING MAMMOGRAM WITH CAD: A sister with breast cancer. No current breast complaints. Comparison ismade to 08/13/07, 08/07/06, and 08/01/05 studies. A moderate amount of heterogeneous nodular breast tissue, bilaterally.Overall parenchymal pattern is similar to the previous studies. In the upper posterior aspect of the right breast on the MLO view there juaquin 9 x 13 mm oval nodular density appearing more prominent than on priorstudies. There is a single calcification associated with that. Thecalcification has benign type features and is stable. A discrete entitynot seen on the MLO view though it may be obscured far laterally. This digital mammogram was also analyzed by the Computer Aided DetectionSystem (CAD), R2 ImageChecker, Version 8.3. SUMMARY: Nodular density on the right needing further evaluation.Initially, right MLO, focal compression MLO, and conventional true lateralviews should be obtained. A lateral exaggerated CC view and a focalcompression CC view laterally should be obtained in an attempt totriangulate this. Stable left breast. us Kobi Hilario MD MAMMO ORDERABLES Final Resul t documented in this encounter Visit Diagnoses Diagnosis Other screening mammogram Other screening mammogram documented in this encounter Care Teams Crocheter Hand Relationship Specialty Start Date End Date Marguerite Fernández DO [address] [place] [address] PCP - General Family Practice 12/29/18 documented as of this encounter
--- OUTSIDE RECORDS SUMMARY | 2024-12-31 23:02 | XMS_ITS | Encounter Summary ---
Author Organization [facility] Address [address] [place] [address] Care Team Providers Care Furnace Liner Name Role Phone Marguerite Fernández Primary Care Provider [phone] Reason for Referral * Eval and Treat (Routine) - Closed Specialty Diagnoses / Procedures Referred By Julia fraser Referred To Contact Diagnoses Liver masses History of breast cancer Procedures US LIVER Fercho Colón MD NO ADDRESS ON FILE Referral ID Status Reason Start Date Expiration Date Visits Re quested Visits Authorized [id number] Closed 02/13/2010 08/12/2010 1 1 NING ENGINEER Encounter Details Date Type Department Care Team (Latest Contact Info) Description 02/13/2010 Ancillary Orders [facility] Ultrasound [address] 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 The exam was ordered with the wrong ordering physician. The exam has been reordered with the correct information, and the report has been moved to the new accession number: [id number]. jaw - transcribed in Epic - Impressions 05/19/2010 6:05 PM REFINING ENGINEER Impression: 1. 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 Cholelithiasis, there is one less than 1 cm gallstone. guicho 1551 PM - uploaded from [employer]- Narrative 05/19/2010 6:05 PM REFINING ENGINEER Exam: US LIVER Date/Time of Exam: May 17, 2010 09:33:00 AM History: LIVER MASSES Findings: Liver seems enlarged, and the left lobe demonstrates a heterogeneous texture mass that measures 3.5 x 5.5 cm. There is no dilation of the intrahepatic bile duct, or of the common bile duct. Gallbladder demonstrates one stone that measures just less than 1.0 cm. There is no pericholecystic fluid, wall thickening or layering sludge. Bowel gas obscures the pancreas. Right kidney length measures 11.2 cm and it shows a lower pole cyst that measures 0.6 x 1.3 cm. Also, the upper pole is of concern for a 4.4 x 8.6 cm structure. It might be exophytic from the right kidney upper pole. Alternatively, it might be part of the inferior right hepatic lobe. Correlation is made with the CT performed earlier today, the finding might be part of the hepatic fatty replacement. Procedure Note César Cardona MD - 07/17/2010 Exam: US LIVER Date/Time of Exam: May 17, 2010 09:33:00 AM History: LIVER MASSES Findings: Liver seems enlarged, and the left lobe demonstrates a heterogeneous texture mass that measures 3.5 x 5.5 cm. There is no dilation of the intrahepatic bile duct, or of the common bile duct. Gallbladder demonstrates one stone that measures just less than 1.0 cm. There is no pericholecystic fluid, wall thickening or layering sludge. Bowel gas obscures the pancreas. Right kidney length measures 11.2 cm and it shows a lower pole cyst that measures 0.6 x 1.3 cm. Also, the upper pole is of concern for a 4.4 x 8.6 cm structure. It might be exophytic from the right kidney upper pole. Alternatively, it might be part of the inferior right hepatic lobe. Correlation is made with the CT performed earlier today, the finding might be part of the hepatic fatty replacement. IMPRESSION Impression: 1. 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 Cholelithiasis, there is one less than 1 cm gallstone. [email or web address] 1551 PM - uploaded from [employer]- Fercho Colón MD ORDERABLES Edited Result - Final documented in this encounter Visit Diagnoses Diagnosis Liver masses Unspecified disorder of liver History of breast cancer Personal history of malignant neoplasm of breast Liver masses Unspecified disorder of liver History of breast cancer Personal history of malignant neoplasm of breast documented in this encounter Care Teams Furnace Liner Relationship Specialty Start Date End Date Marguerite Fernández DO [address] [place] [address] PCP - General Family Practice 12/29/18 documented as of this encounter
--- OUTSIDE RECORDS SUMMARY | 2024-12-31 23:02 | XMS_ITS | Encounter Summary ---
Author Organization [facility] Address [address] [place] [address] Care Team Providers Care Professor Of Theater Name Role Phone Marguerite Fernández DO Primary Care Provider [phone] Encounter Details Date Type Department Care Team (Latest Contact Info) Description 09/09/2001 Outpatient Historical [facility] Dereck Elder Jr., MD [address] [place] [phone] HYPOCALCEMIA (Primary Dx) Social History Tobacco Use Types Packs/Day Years Used Date Smoking Tobacco: Never Assessed Comments Unknown Sex and Gender Information Value Date Recorded Sex Assigned at Not on file 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
--- OUTSIDE RECORDS SUMMARY | 2024-12-31 23:02 | XMS_ITS | Encounter Summary ---
Author Organization [facility] Address [address] [place] [address] Care Team Providers Care Mattress Maker Name Role Phone Marguerite Fernández DO Primary Care Provider [phone] Encounter Details Date Type Department Care Team (Latest Contact Info) Description 08/07/2006 Outpatient Historical [facility] Breast [place] Ravi Duque [place] [address] 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
--- OUTSIDE RECORDS SUMMARY | 2024-12-31 23:02 | XMS_ITS | Encounter Summary ---
Author Organization [facility] Address [address] [place] [address] Care Team Providers Care Coatings Inspector Name Role Phone Marguerite Fernández DO Primary Care Provider [phone] Encounter Details Date Type Department Care Team (Late st Contact Info) Description 09/11/2008 Ancillary Orders [facility] Endocrinology-[facility] [place] [address] [place] [address] Kobi Hilario MD NO ADDRESS ON FILE Social History Tobacco Use Types Packs/Day Years Used Date Smoking Tobacco: Never Assessed Comments No Sex and Gender Information Value Date Recorded Sex Assigned at Not on file 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
--- OUTSIDE RECORDS SUMMARY | 2024-12-31 23:02 | XMS_ITS | Encounter Summary ---
Author Organization [facility] Address [address] [place] [address] Care Team Providers Care Leaf Size Picker Name Role Phone Marguerite Fernández DO Primary Care Provider Encounter Details Date Type Department Care Team (Latest Contact Info) Description 11/20/2000 Outpatient Historical [facility] Dereck Elder Jr., MD [address] [place] [phone] Unspecified disorder of kidney and ureter (Primary Dx); Hyperpotassemia Social History Tobacco Use Types Packs/Day Years Used Date Smoking Tobacco: Never Assessed Comments Unknown Sex and Gender Information Value Date Recorded Sex Assigned at Not on file 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
--- OUTSIDE RECORDS SUMMARY | 2024-12-31 23:02 | XMS_ITS | Encounter Summary ---
Author Organization [facility] Address [address] [place] [address] Care Team Providers Care Flake Miller Helper Name Role Phone Marguerite Fernández DO Primary Care Provider Encounter Details Date Type Department Care Team (Late st Contact Info) Description 09/27/2008 Ancillary Orders [facility] [address] [facility] [address] [place] [address] Kobi Hilario MD NO ADDRESS ON FILE Lump or Mass in Breast Social History Tobacco Use Types Packs/Day Years Used Date Smoking Tobacco: Never Assessed Comments No Sex and Gender Information Value Date Recorded Sex Assigned at Not on file 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 Procedure Note Yessenia Lane MD - 10/11/2008 Post-procedural mammogram report is included in the ultrasound-guidedneedle core biopsy report of 10/06/08. us Kobi Hilario MD MAMMO ORDERABLES Final Resul t * MAMMO BREAST US BIOPSY RIGHT (10/06/2008 8:14 AM CDT) Anatomical Region Laterality Modality Breast Right Ultrasound Narrative 10/06/2008 3:45 PM CDT RIGHT BREAST ULTRASOUND-GUIDED NEEDLE CORE BIOPSY: 10/06/08 The patient was here and had evaluation on 09/27/08 and a solid new nodule was identified at the 9 o'clock position on the right. Ultrasound-guided needle core biopsy was recommended. Informed consent was obtained from the patient. She was placed on the ultrasound table and the right breast was prepped and draped in the usual sterile fashion. The skin and subcutaneous tissue was anesthetized with lidocaine. A small skin jesse was made with a scalpel. Utilizing a 14-gauge spring-loaded core biopsy needle, several needle core specimens were obtained. Pre and post-fire imaging showed that the needle was in accurate position. The needle was removed and hemostasis was achieved. A marker clip was placed. Post-clip mammogram views show the clip in good position. A pressure dressing and ice pack were applied. There was no immediate complication. Verbal and written post-procedure instructions were given to the patient and she was released in good condition. The core needle specimens were sent to Surgical Pathology. CONCLUSION: Successful ultrasound-guided needle core biopsy on the right, as described above. PATHOLOGY RESULTS REVIEWED 10/09/08: MALIGNANT. 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 I would recommend surgical consultation. Procedure Note Yessenia Lane MD - 10/11/2008 RIGHT BREAST ULTRASOUND-GUIDED NEEDLE CORE BIOPSY: 10/06/08 The patient was here and had evaluation on 09/27/08 and a solid new nodulewas identified at the 9 o'clock position on the right. Ultrasound-guidedneedle core biopsy was recommended. Informed consent was obtained from the patient. She was placed on theultrasound table and the right breast was prepped and draped in the usualsterile fashion. The skin and subcutaneous tissue was anesthetized withlidocaine. A small skin jesse was made with a scalpel. Utilizing [id number] spring-loaded core biopsy needle, several needle core specimenswere obtained. Pre and post-fire imaging showed that the needle was inaccurate position. The needle was removed and hemostasis was achieved. Amarker clip was placed. Post-clip mammogram views show the clip in goodposition. A pressure dressing and ice pack were applied. There was noimmediate complication. Verbal and written post-procedure instructionswere given to the patient and she was released in good condition. Thecore needle specimens were sent to Surgical Pathology. CONCLUSION: Successful ultrasound-guided needle core biopsy on the right,as described above. PATHOLOGY RESULTS REVIEWED 10/09/08: MALIGNANT. The pathology reportfrom the needle biopsy of the right breast shows ductal carcinoma in-situ,low grade, and focal atypical lobular hyperplasia. I would recommendsurgical consultation. us Kobi Hilario MD MAMMO ORDERABLES Final Resul t documented in this encounter Visit Diagnoses Diagnosis Lump or mass in breast Lump or mass in breast Lump or mass in breast documented in this encounter Care Teams Flake Miller Helper Relationship Specialty Start Date End Date Marguerite Fernández DO [address] [place] [address] PCP - General Family Practice 12/29/18 documented as of this encounter
--- OUTSIDE RECORDS SUMMARY | 2024-12-31 23:02 | XMS_ITS | Encounter Summary ---
Author Organization [facility], [facility] Address [address] [place] [address] Phone Care Team Providers Care Rn Home Care Name Role Phone Marguerite Fernández DO Primary Care Provider [phone] Encounter Details Date Type Department Care Team (Late st Contact Info) Description 02/18/2020 [facility] [address] [place] [address] Temi Cyr, ULTRASONIC TESTER [address] [place] [address] Chronic kidney disease, stage 3 unspecified Social History Tobacco Use Types Packs/Day Years [...] on file documented as of this encounter Procedures Procedure Name Priority Date/Time Associated Diagnosis Comments PROTEIN / CREATININE RATIO, URINE Routine 02/21/2020 9:30 AM HRBP Chronic kidney disease, stage 3 unspecified VITAMIN D 25 HYDROXY Routine 02/21/2020 9:30 AM HRBP Chronic kidney disease, stage 3 unspecified CBC AND DIFFERENTIAL Routine 02/21/2020 9:30 AM HRBP Chronic kidney disease, stage 3 unspecified PTH, INTACT Routine 02/21/2020 9:30 AM HRBP Chronic kidney disease, stage 3 unspecified RENAL FUNCTION PANEL Routine 02/21/2020 9:30 AM HRBP Chronic kidney disease, stage 3 unspecified documented in this encounter Results * Vitamin D 25 Hydroxy (02/21/2020 9:30 AM HRBP) Vitamin D, 25-Hydroxy 52 30 - 100 ng/mL [facility] Comment: Interpretive Data Chart: Deficient: 0 - 20 ng/mL Insufficient: 21 - 29 ng/mL Sufficient: 30 - 100 ng/mL Increased Risk of Hypercalciuria: >100 ng/ml Toxic: >150 ng/ml Performed at: [place] [address] Systems Test Engineer: Partha Pascual MD CLIA # [id number] Blood specimen (specimen) Venous blood / Unknown 02/21/2020 9:30 AM HRBP 02/21/2020 3:44 PM HRBP Temi Cyr [facility] BLOOD ORDERABLES Final Resul t [facility] * PTH, Intact (02/21/2020 9:30 AM HRBP) PTH 41.9 15.0 - 65.0 pg/mL [facility] Comment: Performed at: [place] [address] Systems Test Engineer: Partha Pascual MD CLIA # [id number] Blood specimen (specimen) Venous blood / Unknown 02/21/2020 9:30 AM HRBP 02/21/2020 3:44 PM HRBP us Temi Cyr [facility] BLOOD ORDERABLES Final Resul t [facility] * Protein, Total, Random Urine w/Creatinine (Protein/Creat Ratio) (02/21/2020 9:30 AM HRBP) Protein, Ur 5 0 - 20 mg/dL [facility] Creatinine, Urine 48.8 29.0 - 226.0 mg/dL [facility] Comment:Reference Range vari es with fluid intake and diet. Protein/Creatin ine Ratio, Urine 0.10 0.00 - 0.19 mg/mg Creatinine [facility] Comment: Specimen Source: Urine, unspecified source Performed at: [facility] [place] [address] Systems Test Engineer: Partha Pascual MD IA # [id number] Urine specimen (specimen) Urine specimen / Unknown 02/21/2020 9:30 AM HRBP 02/21/2020 3:44 PM HRBP Temi Cyr [facility] URINE ORDERABLES Final Resul t [facility] * CBC and Differential (02/21/2020 9:30 AM HRBP) Pathologist [facility] WBC 5.5 4.8 - 10.8 K/uL [facility] S[facility] Red Blood Cells 4.33 4.20 - 5.40 M/uL [facility] Hgb 13.2 12.0 - 16.0 g/dL [facility] Hematocrit 40.0 36.0 - 46.0 % [facility] MCV 92.4 84.0 - 103.0 fL [facility] MCH 30.5 27.0 - 34.[address] [facility] [facility] SNA MCHC 33.0 30.0 - 35.0 g/dL [facility] SNA RDW 12.3 11.0 - 14.5 % [facility] SNA RDW-SD 42.0 37.0 - 54.0 fL [facility] Platelets 181 140 - 440 K/uL [facility] MPV 10.8 8.9 - 12.[address] [facility] SNA Neutrophils Relative 58 42 - 75 % [facility] Lymphocytes 33 24 - 44 % [facility] Monocytes 7 2 - 10 % [facility] Eosinophils Relative 2 0 - 7 % [facility] Basophils Relative 1 0 - 1 % [facility] Immature Granulocytes 0 0 - 2 % [facility] Neutrophils Absolute 3.18 2.00 - 8.00 K/uL [facility] Lymphocytes Absolute 1.79 1.20 - 4.00 K/uL [facility] Monocytes Absolute 0.41 0.10 - 0.60 K/uL [facility] Eosinophils Absolute 0.09 0.00 - 0.70 K/uL [facility] Basophils Absolute 0.03 0.00 - 0.20 K/uL [facility] Immature Grans (Absolute) 0.01 0.00 - 0.10 K/uL [facility] Comment: Performed at: [facility] [place] [address] Systems Test Engineer: MD BRIDGET Wong # [id number] Blood specimen (specimen) Venous blood / Unknown 02/21/2020 9:30 AM HRBP 02/21/2020 3:44 PM HRBP us Temi Cyr [facility] [facility] LAB BLOOD ORDERABLES Final Resul t [facility] * (ABNORMAL) Renal Function Panel (02/21/2020 9:30 AM HRBP) Sodium 143 136 - 145 mmol/L [facility] Potassium 4.3 3.5 - 5.1 mmol/L [facility] Chloride 104 98 - 107 mmol/L [facility] Carbon Dioxide (CO2) 29 22 - 29 mmol/L [facility] Calcium 9.1 8.8 - 10.2 mg/dL [facility] BUN 18 8 - 23 mg/dL [facility] Creatinine 1.24(H) 0.51 - 0.95 mg/dL [facility] Comment:The GFR result is no t clinically significant on patients <18 or >70 years of age. Glucose 91 74 - 99 mg/dL [facility] Albumin 3.9 3.5 - 5.2 g/dL [facility] Phosphorus, Serum 2.4(L) 2.5 - 4.5 mg/dL [facility] eGFR Non- 43 mL/min/1.7 3 sq meter [facility] Comment: eGFR has not been validated for use in the elderly (> 70 years of age), women, patients with serious co-morbid conditions, or persons with extremes of body size or muscle mass and should also be interpreted with caution in patients with acute kidney failure, dialysis dependent patients, patients reporting exceptional dietary intake (e.g. vegetarian diet, high protein diets, creatine supplementation), and patients with severe liver disease. Based on National Kidney Disease Education Program If patient is , please refer to the GFR result. eGFR 52 mL/min/1.7 3 sq meter [facility] Anion Gap 10 9 - 20 mmol/L [facility] Comment: TEST COMMENT: Fasting?->No Performed at: [facility] [place] [address] Systems Test Engineer: Partha Pascual MD [facility] # [id number] Blood specimen (specimen) Venous blood / Unknown 02/21/2020 9:30 AM HRBP 02/21/2020 3:44 PM HRBP us Temi Cyr [employer] LAB BLOOD ORDERABLES Final Resul t [facility] [place] [facility] documented in this encounter Visit Diagnoses Diagnosis Chronic kidney disease, stage 3 unspecified documented in this encounter Care Teams Rn Home Care Relationship Specialty Start Date End Date Marguerite Fernández DO PCP - General Family Medicine 10/18/19 documented as of this encounter
--- OUTSIDE RECORDS SUMMARY | 2024-12-31 23:02 | XMS_ITS | Encounter Summary ---
Author Organization [facility] Address [address] [place] [address] Care Team Providers Care Relationship Specialist Name Role Phone Marguerite Fernández DO Primary Care Provider [phone] Encounter Details Date Type Department Care Team (Latest Contact Info) Description 11/02/2000 Outpatient Historical [facility] Dereck Elder Jr., MD [address] [place] [id number] Unspecified hypothyroidism (Primary Dx); Other diseases of respiratory system, not elsewhere classified Social History Tobacco Use Types Packs/Day Years Used Date Smoking Tobacco: Never Assessed Comments Unknown Sex and Gender Information Value Date Recorded Sex Assigned at Not on file Legal Sex Female 4:06 AM [employer] Gender Identity Not on file Sexual Orientation Not on file documented as of this encounter Plan of Treatment Not on file documented as of this encounter Visit Diagnoses Diagnosis Unspecified hypothyroidism- Primary Other diseases of respiratory system, not elsewhere classified documented in this encounter Care Teams Relationship Specialist Relationship Specialty Start Date End Date Marguerite Fernández DO [address] [place] [id number] PCP - General Family Practice 12/29/18 documented as of this encounter
--- OUTSIDE RECORDS SUMMARY | 2024-12-31 23:02 | XMS_ITS | Clinical Summary ---
Author Organization [facility] de Address [address] [place] [address] Phone Care Team Providers Care Betting Clerk Name Role Phone Marguerite Fernández Primary Care Provider Allergies Active Allergy Reactions Criticality Noted Date Comments Iodinated Contrast Media Rash Low 01/08/2016 Medications BIOTIN ORAL Take 1 Tablet by mouth daily. Active acetaminophen (TYLENOL) 325 mg tablet Take 650 mg by mouth 1 time daily as needed for Pain or Other (See Comment) (spasms). Active CALCIUM-VITAMIN D3 ORAL Take 1 Tablet by mouth 2 times daily. Active MULTIVITAMIN ORAL Take by mouth daily. Active OTHER Biome, bowel supplement Active venlafaxine (EFFEXOR) 37.5 mg tabletIndications: Generalized anxiety disorder Take 1 Tablet (37.5 mg) by mouth daily. 90 Tablet 3 0 Active citalopram (CeleXA) 20 mg tabletIndications: Generalized anxiety disorder Take 1 Tablet (20 mg) by mouth daily. 90 Tablet 3 0 Active blood sugar diagnostic (MotistaTouch Verio test strips) StripIndications:T ype 2 diabetes mellitus with stage 3b chronic kidney disease, without long-term current use of insulin Check blood sugars 1 x daily 100 Each 5 0 Active anastrozole (ARIMIDEX) 1 mg tablet TAKE 1 TABLET(1 MG) BY MOUTH DAILY 90 Tablet 3 1 Active levothyroxine 100 mcg tabletIndications: Postsurgical hypothyroidism One tablet daily except Thursday no tablet only 90 Tablet 3 1 Active Januvia 50 mg TabletIndications: Type 2 diabetes mellitus with stage 3 chronic kidney disease, without long-term current use of insulin TAKE 1/2 TABLET BY MOUTH DAILY WITH BREAKFAST 90 Tablet 2 1 Active ahoga-2-NNO-EPA-fi sh oil (Fish Oil) 1,000 mg Capsule Take 1,000 mg by mouth 2 times daily. 0 Active Saccharomyces boulardii (FLORASTOR) 250 mg Capsule Take 250 mg by mouth 3 times daily. Active fluticasone propionate (FLONASE) 50 mcg/spray [place], Suspension nasal inhalerIndications :Chronic pansinusitis SHAKE LIQUID AND USE 2 SPRAYS IN EACH NOSTRIL DAILY 16 Gram 5 1 Active Active Problems Problem Noted Date Diagnosed Date History of pulmonary embolism 02/22/2020 History of bilateral mastectomy 02/01/2020 Chronic kidney disease, stage 4 (severe) 020 Anemia of chronic disease 01/16/2019 CKD (chronic kidney disease) stage 3, GFR 30-59 ml/min 01/16/2019 Acute renal failure with acu te tubular necrosis superimposed on stage 3 chronic kidney disease 12/07/2018 Acute cystitis without hematuria 12/07/2018 Renal insufficiency 11/03/2018 Neck mass 07/29/2018 Sebaceous cyst 07/29/2018 Type 2 diabetes mellitus wit h stage 3 chronic kidney disease, without long-term current use of insulin 05/14/2018 Elevated alkaline phosphatase level 08/12/2017 Type 2 diabetes mellitus wit h hyperglycemia, without long-term current use of insulin 05/21/2017 Osteopenia of multiple sites 10/31/2016 Acute bilateral pulmonary em bolism without cor pulmonale 10/02/16 10/02/2016 Osteoporosis screening 08/29/2016 Neuropathy due to chemotherapeutic drug 08/02/19 17 Elevated LFTs 06/27/2016 Skin rash 06/27/2016 Anemia in neoplastic disease 06/08/2016 Neoplastic (malignant) related fatigue 7 Hypokalemia 05/02/2016 Leukopenia due to antineoplastic chemotherapy Pulmonary nodules 01/27/2016 BRCA negative 01/24/2016 Obesity (BMI 35.0-39.9 without comorbidity) 11/22 Rt breast Ca - s/p mast (01/28/16) 12/11/2015 Cancer Staging:Clinical stage from 12/11/2015:Stage IA(T1c, N0, M0) - Signed by Andrew Dyer MD on 12/11/2015 Pathologic stage from 01/31/2016:Stage IA(T1c, N0, cM0) - Signed by Andrew Dyer MD on 02/05/2016 Left breast cancer- s/p Lt m astextomy & ALND (01/28/16) - Stage III B 12/11/2015 Cancer Staging:Clinical stage from 12/11/2015:Stage IIA(T1c, N1, M0) - Signed by Andrew Dyer MD on 12/11/2015 Pathologic stage from 01/31/2016:Stage IIIB(T4b(2), N1a, cM0) - Signed by Andrew Dyer MD on 02/05/2016 Postsurgical hypothyroidism 08/10/2009 Essential hypertension 08/10/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 breast - s/p lumpectomy (10/16/08) 10/16/2008 12/11/2015 Immunizations Immunization Administration Dates Next Due (PNEUMOVAX 23)(50 YRS UP) PN EUMOCOCCAL POLYSACCHARIDE (PPV23) 0.5 ML, IM 01/11/2020 (PREVNAR 13)(6 WKS UP) PNEUM OCOCCAL CONJUGATE (PCV13) 0.5 ML, IM 12/29/2018 (SHINGRIX)(50 YRS UP) ZOSTER VACCINE RECOMBINANT, 0.5 ML, IM 04/22/2020,02/22/2020 Hepatitis B Vaccine 08/12/2001,12/16/2000 INFLUENZA VACCINE HIGH DOSE QUADRIVALENT 65 YR UP PF IM 01/11/2020 Influenza Seasonal Unspecified Formulation IM Influenza Vaccine High Dose 65+ Yrs IM 0,12/29/2018 Influenza Vaccine Tri Split 4+ Im 12/31/2015 PNEUMOVAX (PPSV23) pneumococ latisha polysaccharide 23-valent Vaccine 01/11/2020 PREVNAR (PCV13) pneumococcal 13-valent conjugate Vaccine 12/29/2018 Pneumococcal Polysaccharide Vacc 23-paramjit IM SCHIP 01/11/2020 Zoster Vaccine Live SQ 02/22/2020 Family History Medical History Relation Name Comments Colon Cancer Father Breast Cancer Mother Breast Cancer Sister 2 positive res ponses- see media tab Relation Name Status Comments Father Mother Sister Social History Tobacco Use Types Packs/Day Years Used Date Smoking Tobacco: Former Cigarettes Q uit: 10/13/1981 Smokeless Tobacco: Never Alcohol Use Standard [...] asked 07/21/2019 How often do you attend sabianist or islam serv ices? Not asked 07/21/2019 Do you belong to any clubs o r organizations such as sabianist groups, unions, fraternal or athletic groups, or school groups? Not asked 07/21/2019 How often do you attend meet ings of the clubs or organizations you belong to? Not asked 07/21/2019 Are you , , di vorced, , never , or living with a partner? 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 Gender Identity Not on file Sexual Orientation Not on file Occupation Industry Job Start Date Job End Date Not on file Not on file Not on file Not on file Not on file Not on file Not on file Not on file Last Filed Vital Signs Vital Sign Reading Time Taken Comments Blood Pressure 122/80 08/16/2020 9:49 AM CDT Pulse 102 08/16/2020 9:49 AM CDT Temperature 36.4 C (97.6 F) 08/16/2020 9:49 AM CDT Respiratory Rate 20 07/21/2019 2:49 PM CDT Oxygen Saturation 97% 08/16/2020 9:49 AM CDT Inhaled Oxygen Concentration - - Weight 93.4 kg (206 lb) 08/16/2020 9:49 AM CDT Height 162.6 cm (5' 4 ) 06/12/2020 11:45 AM CDT Body Mass Index 35.36 06/12/2020 11:45 AM CDT Plan of Treatment Health Maintenance Due Date Last Done Comments DTAP/TDAP/TD VACCINES (1 - Tdap) 1969 DIABETES MICROALBUMIN ANNUAL SCREEN 10/09/2020 10/10/2019, 10/03/2019, 07/19/2019, Additional history exists DIABETES HBA1C Q 6 MONTHS 12/05/20202020, 04/04/2020, 10/03/2019, Additional history exists Traditional Medicare (ACO) A nnual Wellness Visit 02/22/2021 02/22/2020, 12/29/2018 LDL CHOLESTEROL ANNUAL 06/04/2021 1, 04/04/2020, 10/03/2019, Additional history exists DIABETES ANNUAL FOOT EXAM 11/16/2021 11/16/2020 RSV VACCINE (60+ or ) (1 - 1-dose 75+ series) 2023 OSTEOPOROSIS SCREENING 10/28/2023 10/27/2018, 2016 INFLUENZA VACCINE (#1) 2024 0, 01/11/2020, 12/29/2018, Additional history exists DIABETES ANNUAL RETINAL EXAM 07/28/202510/2024, 11/01/2021, 01/19/2020, Additional history exists PNEUMOCOCCAL VACCINE 50+ YEARS Completed 1 , 01/11/2020, 01/11/2020, Additional history exists Colorectal Cancer Screening Discontinued FIT/FOBT Q 1 year Discontinued 02/13/2020 ZOSTER VACCINE Completed 04/22/2020, 04/2019, 02/22/2020 COLORECTAL SCREENING Discontinued FIT-DNA Q 3 years Discontinued Flex Sig/CT Colonography Q 5 years Discontinued Medical Devices Implanted Type Area Cardiac Monitor Technician Device Identifier Shelf Expiration Date Model / Serial / Lot Allomax Rctngl 8x16cm [id number] - [id number] Implanted:Qty: 1 on 01/28/2016 by Fercho Whaley MD at [facility] Biological Left: Breast [employer] 09/26/2020 [id number] / / [id number] Description:Soaked in : Sodi um Chloride irrigation solution, 0.9%, Lot# [id number], Exp: oct 2018 Bacitracin 50,000 U lot# [id number], Exp: 11/07 Gentamicin 80mg Lot# [id number], Exp: 01/06/ Cefazolin 1gm, NDC: 29330-917-36, BUD: 02/08/2016 Allomax Rctngl 8x16cm [id number] - [id number] Implanted:Qty: 1 on 01/28/2016 by Fercho Whaley MD at [facility] Biological Right: Breast [employer] 09/26/2020 [id number] / / [id number] Description:soaked in 0.9% s odium chloride irrigation, lot# [id number], exp: 11/08 bacitracin 50,000 U Lot# [id number], Exp: 11/07 Gentamicin 80mg, Lot# [id number], Exp: 01/06 Cefazolin 1gm, NDC: 96697-943-18, BUD: 01/29/2016 Mmmry [facility] Rnd Hp [id number] - [id number] Implanted:Qty: 1 on 01/28/2016 by Fercho Whaley MD at [facility] Mammary Left: Breast [employer] 11/07/2020 [id number] / / [id number] Mmmry [facility] Rnd Hp [id number] - [id number] Implanted:Qty: 1 on 01/28/2016 by Fercho Whaley MD at [facility] Mammary Right: Breast [employer] 10/13/2020 [id number] / / [id number] Port Pwrprt Clr Jose 8fr Mri [id number] Implanted:Qty: 1 on 02/26/2016 by Boyd Rivera MD Port Right: Chest [employer] 05/20/2017 [id number] / / [id number] Procedures Procedure Name Priority Date/Time Associated Diagnosis Comments LIPID PANEL Routine 06/04/2020 9:08 AM CDT Type 2 diabetes mellitus with stage 3 chronic kidney disease, without long-term current use of insulin, unspecified whether stage 3a or 3b CKD (CMS/HCC) HEMOGLOBIN A1C Routine 06/04/2020 9:08 AM CDT Type 2 diabetes mellitus with stage 3 chronic kidney disease, without long-term current use of insulin, unspecified whether stage 3a or 3b CKD (CMS/HCC) OCCULT BLOOD IMMUNOASSAY, COLORECTAL SCREEN Routine 02/13/2020 9:13 AM JEWELRY SALES REPRESENTATIVE Encounter for colorectal cancer screening MICROALBUMIN/CREATI NINE RATIO, RANDOM UR Routine 10/10/2019 8:14 AM CDT Chronic kidney disease, stage 3 (moderate) (CMS/HCC) XR DEXA BONE DENSITY AXIAL 1 OR MORE SITES Routine 10/27/2018 10:11 AM CDT Rt breast Ca - s/p mast (01/28/16) Left breast cancer- s/p Lt mastextomy & ALND (01/28/16) - Stage III B Osteopenia of multiple sites from Last 3 Months or Most Recently Relevant to Health Maintenance Results * HEMOGLOBIN A1C (06/04/2020 9:08 AM CDT) HEMOGLOBIN A1C 5.0 See Comment % 06/04/2020 9:40 AM CDT [facility] EST. AVG GLUCOSE, A1C 97 mg/dL 06/04/2020 9:40 AM CDT [facility] Blood Venipuncture / Unknown 06/04/2020 9:08 AM CDT 06/04/2020 9:19 AM CDT Narrative [facility] - 06/04/2020 9:40 AM CDT HGB A1C INTERPRETATION NORMAL: <5.7% PRE-DIABETES: 5.7 - 6.4% DIABETES: 6.5% OR GREATER Falsely low A1C measurements can occur when: 1. Anemia and/or hemolytic anemia is present. 2. Hemoglobin variants present. 3. Renal failure. 4. Transfusion of blood product in the last 120 days. We recommend ordering a fructosamine test([id number]) to more accurately assess glycemic status if any of the above conditions are present. Alfredito JACOBO CHEMISTRY ORDERABLES Final R esult [facility] CLIA# [id number] [address] [place] [address] * LIPID PANEL (06/04/2020 9:08 AM CDT) [facility] CHOLESTEROL 166 <200 mg/dL 06/04/2020 10:05 AM T [facility] TRIGLYCERIDE 143 <150 mg/dL 06/04/2020 10:05 AM T [facility] HDL 43 40 - 59 mg/dL 06/04/2020 10:05 AM T [facility] LDL CALCULATED 94 <100 mg/dL 06/04/2020 10:05 AM T [facility] NON-HDL CHOLESTEROL 123 <130 mg/dL 06/04/2020 10:05 AM T [facility] Blood Venipuncture / Unknown 06/04/2020 9:08 AM CDT 06/04/2020 9:21 AM CDT [facility] JAIME - 06/04/2020 10:05 AM CDT TOTAL CHOLESTEROL mg/dL Desirable <200 Borderline high 200-239 High >=240 TRIGLYCERIDES mg/dL Normal <150 Borderline high 150-199 High 200-499 Very high >=500 HDL CHOLESTEROL mg/dL Low <40 Normal 40-59 Desirable >=60 NON HDL CHOLESTEROL mg/dL Optimal <130 Near Optimal 130-159 Borderline High 160-189 Very High >=190 CALCULATED LDL mg/dL LDL <70, OPTIMAL if have Atherosclerotic cardiovascular disease (ASCVD) or intermediate or higher (>7.5%) 10 year risk of ASCVD including most adults with diabetes. LDL <100, Optimal in adult patients with low (<7.5%) 10 year ASCVD risk LDL 100-160, Suboptimal LDL >160, High LDL >190, Very high ATPIII Guidelines Reference Ranges for Lipid Panels (NCEP/AMA) . Alfredito JACOBO CHEMISTRY ORDERABLES Final R esult Performing Organization Address City/[facility]/ZIP Co de Phone Number [facility] CLIA# [id number] [address] [place] [address] * OCCULT BLOOD IMMUNOASSAY, COLORECTAL SCREEN (02/13/2020 9:13 AM JEWELRY SALES REPRESENTATIVE) OCCULT BLOOD, STOOL Negative Negative 02/13/2020 10:10 AM JEWELRY SALES REPRESENTATIVE [facility] Stool STOOL SPECIMEN / Unknown Collection / Unknown 02/13/2020 9:13 AM JEWELRY SALES REPRESENTATIVE 02/13/2020 9:13 AM JEWELRY SALES REPRESENTATIVE Marguerite Fernández DO BODY FLUIDS AND STOOLS Anila l Result Performing Organization Address [facility] Co de Phone Number [facility] CLIA# [id number] [address] [place] [address] * (ABNORMAL) MICROALBUMIN/CREATININE RATIO, RANDOM UR (10/10/2019 8:14 AM CDT) ALBUMIN, URINE 6.9 mg/L 10/12/2019 4:24 PM CDT [facility] Comment: ADDITIONAL INFORMATION This test has been modified from the epic analyst's instructions. Its performance characteristics were determined by [facility] in a manner consistent with CLIA requirements. This test has not been cleared or approved by the U.S. Food and Drug Administration. CREATININE, URINE 20 mg/dL 020 4:24 PM CDT [facility] ALBUMIN/CREATININE RATIO 35(H) <25 mg/g 10/12/2019 4:24 PM CDT [facility] Comment: Test Performed by: [place] [address] Education Professional: Fercho Robb M.D. Ph.D.; CLIA# [id number] Urine URINE SPECIMEN / Unknown Collection / Unknown 10/10/2019 8:14 AM CDT 10/10/2019 7:32 PM CDT us Temi Cyr CERTIFIED INDUSTRIAL HYGIENIST URINE ORDERABLES Final Resu lt [facility] * XR DEXA BONE DENSITY AXIAL 1 OR MORE SITES (10/27/2018 10:11 AM CDT) Anatomical Region Laterality Modality Nuclear Medicine 10/27/2018 10:1 1 AM CDT Impressions 10/27/2018 1:00 PM CDT IMPRESSION: Stable abnormal examination demonstrating low bone density/osteopenia in the right proximal femur without important change at all locations and with values lying above the average of the patient's age-matched control with the single exception of the right femoral neck value. Narrative 10/27/2018 1:00 PM CDT DEXA Evaluation of the Lumbar Spine and Left/Right Proximal Femur Reason for Consultation: Low bone density/osteopenia/history of breast carcinoma. Evaluation of bone mineral density. The following absorptiometry data were obtained. The quality of this examination is acceptable with regards to count density, processed images, data display and lack of important artifacts (including but not limited to motion and attenuation artifacts). Serial examination number two with comparison to a prior exam of 09/09/2016. L1-L4 BMD (g/cm2): 1.308 Adult T-score: 1.1 Adult Z-score: 1.6 Left/right femoral neck BMD (g/cm2): 0.963/0.790 Adult T-score: -0.1/-1.6 Adult Z-score: 0.6/-0.9 Left/right total hip BMD (g/cm2): 1.058/1.026 Adult T-score: 0.5/0.2 Adult Z-score: 1.0/0.7 Procedure Note César Barr MD - 10/27/2018 DEXA Evaluation of the Lumbar Spine and Left/Right Proximal Femur Reason for Consultation: Low bone density/osteopenia/history of breast carcinoma. Evaluation of bone mineral density. The following absorptiometry data were obtained. The quality of this examination is acceptable with regards to count density, processed images, data display and lack of important artifacts (including but not limited to motion and attenuation artifacts). Serial examination number two with comparison to a prior exam of 09/09/2016. L1-L4 BMD (g/cm2): 1.308 Adult T-score: 1.1 Adult Z-score: 1.6 Left/right femoral neck BMD (g/cm2): 0.963/0.790 Adult T-score: -0.1/-1.6 Adult Z-score: 0.6/-0.9 Left/right total hip BMD (g/cm2): 1.058/1.026 Adult T-score: 0.5/0.2 Adult Z-score: 1.0/0.7 IMPRESSION: Stable abnormal examination demonstrating low bone density/osteopenia in the right proximal femur without important change at all locations and with values lying above the average of the patient's age-matched control with the single exception of the right femoral neck value. Temi Bunch MD DIAGNOSTIC IMAGING ORDERAB LES Final Result from Last 3 Months or Most Recently Relevant to Health Maintenance Insurance MEDICARE PART A AND B [facility] Advance Directives For more information, please contact: [phone] * NO CPR (In Event of Cardiopulmonary Arrest) (Latest Code Status on File) Date Activated Date Inactivated Comments 12/07/2018 4:48 PM 12/09/2018 4:15 PM Question Answer Comments Mechanical Ventilation (for respiratory distress) - Invasive (i.e. intubation): Yes Mechanical Ventilation (for respiratory distress) - Non-Invasive (i.e. BiPAP, CPAP): Yes Cardioversion - (Allow prior to Cardiopulmonary Arrest): Yes Vasopressors - (Allow prior to Cardiopulmonary A rrest): Yes Inotropic Agents - (Allow prior to Cardiopulmona ry Arrest): Yes External Pacing - (Allow prior to Cardiopulmonar y Arrest): Yes Invasive Monitoring - (Allow prior to Cardiopulm onary Arrest): Yes * Full Code Date Activated Date Inactivated Comments 10/16/2008 8:18 AM 10/17/2008 2:01 AM Care Teams Betting Clerk Relationship Specialty Start Date End Date Marguerite Fernández DO [address] [place] [address] PCP - General Family Practice 12/29/18
--- OUTSIDE RECORDS SUMMARY | 2024-12-31 23:02 | XMS_ITS | Encounter Summary ---
Author Organization [facility] Address [address] [place] [address] Care Team Providers Care Failure Analysis Technician Name Role Phone Marguerite Fernández DO Primary Care Provider Encounter Details Date Type Department Care Team (Latest Contact Info) Description 10/19/2000 Outpatient Historical [facility] Dereck Elder Jr., MD [address] [place] [phone] Osteoporosis, unspecified (Primary Dx) Social History Tobacco Use Types Packs/Day Years Used Date Smoking Tobacco: Never Assessed Comments Unknown Sex and Gender Information Value Date Recorded Sex Assigned at Not on file 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
--- OUTSIDE RECORDS SUMMARY | 2024-12-31 23:02 | XMS_ITS | Encounter Summary ---
Author Organization [facility] Address [address] [place] [address] Care Team Providers Care Flatwork Supervisor Name Role Phone Marguerite Fernández DO Primary Care Provider Encounter Details Date Type Department Care Team (Late st Contact Info) Description 08/19/2005 Outpatient Historical [facility] [address] [facility] [address] [place] [phone] Maria R Chan MD NO ADDRESS ON FILE Lump or Mass in Breast (Primary Dx) Social History Tobacco Use Types Packs/Day Years Used Date Smoking Tobacco: Never Assessed Comments Unknown Sex and Gender Information Value Date Recorded Sex Assigned at Not on file 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
--- OUTSIDE RECORDS SUMMARY | 2024-12-31 23:02 | XMS_ITS | Encounter Summary ---
Author Organization [facility] Address [address] [place] [address] Care Team Providers Care Russian Language Professor Name Role Phone Marguerite Fernández DO Primary Care Provider Encounter Details Date Type Department Care Team (Latest Contact Info) Description 08/07/2006 Outpatient Historical [facility] Ravi Duque Thomas [address] 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
--- OUTSIDE RECORDS SUMMARY | 2024-12-31 23:02 | XMS_ITS | Encounter Summary ---
Author Organization [email or web address] Address [address] [place] [address] Care Team Providers Care Aquatics Specialist Name Role Phone Marguerite Fernández DO Primary Care Provider [phone] Encounter Details Date Type Department Care Team (Latest Contact Info) Description 12/16/2000 Outpatient Historical [facility] Dereck Elder Jr., MD [address] [place] [phone] Unspecified disorder of kidney and ureter (Primary Dx); Need for prophylactic vaccination against Streptococcus pneumoniae (pneumococcus); Vaccine for viral hepatitis Social History Tobacco Use Types Packs/Day Years Used Date Smoking Tobacco: Never Assessed Comments Unknown Sex and Gender Information Value Date Recorded Sex Assigned at Not on file 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 Gender Identity Not on file Sexual Orientation Not on file documented as of this encounter Plan of Treatment Not on file documented as of this encounter Visit Diagnoses Diagnosis Unspecified disorder of kidney and ureter- Primary Need for prophylactic vaccination against Streptococcus pneumoniae (pneumococcus) Need for prophylactic vaccination against streptococcus pneumoniae (pneumococcus) Vaccine for viral hepatitis Need for prophylactic vaccination and inoculation against viral hepatitis documented in this encounter Care Teams Aquatics Specialist Relationship Specialty Start Date End Date Marguerite Fernández DO [address] [place] [phone] PCP - General Family Practice 12/29/18 documented as of this encounter
--- OUTSIDE RECORDS SUMMARY | 2024-12-31 23:02 | XMS_ITS | Encounter Summary ---
Author Organization [facility] Address [address] [place] [address] Care Team Providers Care Chief Resource Officer Name Role Phone Marguerite Fernández DO Primary Care Provider Encounter Details Date Type Department Care Team (Late st Contact Info) Description 10/30/2009 Ancillary Orders [facility] Ultrasound [address] 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 Narrative 11/05/2009 11:22 AM CDT Ultrasound Guided Biopsy: Left hepatic mass. - Nov 05, 2009 9:27:00 AM Clinical History: Left hepatic mass. History of cervical, thyroid and breast cancers. Technique: Full PARQ conference was held. The patient understood and wished to proceed. Informed written consent was obtained. The patient was placed supine on the ultrasound imaging table. Following sterile prep and local anesthesia with 1% lidocaine, 7 core biopsies were obtained coaxially ( 17 -gauge/ 18 -gauge) from the left hepatic mass under ultrasound guidance. Specimens were sent for analysis. There were no immediate complications. Medications: 2 mg Versed, 100 mcg fentanyl for uncomplicated intravenous conscious sedation. Findings: Ultrasound guided left hepatic mass biopsy was performed as detailed above. Procedure Note Fercho Colón MD - 11/05/2009 Ultrasound Guided Biopsy: Left hepatic mass. - Nov 05, 2009 9:27:00 AM Clinical History: Left hepatic mass. History of cervical, thyroid and breast cancers. Technique: Full PARQ conference was held. The patient understood and wished to proceed. Informed written consent was obtained. The patient was placed supine on the ultrasound imaging table. Following sterile prep and local anesthesia with 1% lidocaine, 7 core biopsies were obtained coaxially ( 17 -gauge/ 18 -gauge) from the left hepatic mass under ultrasound guidance. Specimens were sent for analysis. There were no immediate complications. Medications: 2 mg Versed, 100 mcg fentanyl for uncomplicated intravenous conscious sedation. Findings: Ultrasound guided left hepatic mass biopsy was performed as detailed above. IMPRESSION Impression: Ultrasound guided left hepatic mass biopsy. Andrew Dyer MD ORDERABLES Final Result documented in this encounter Visit Diagnoses Diagnosis Liver mass Unspecified disorder of liver Liver mass Unspecified disorder of liver documented in this encounter Care Teams Chief Resource Officer Relationship Specialty Start Date End Date Marguerite Fernández DO [address] [place] [address] PCP - General Family Practice 12/29/18 documented as of this encounter
--- OUTSIDE RECORDS SUMMARY | 2024-12-31 23:02 | XMS_ITS | Encounter Summary ---
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
--- OUTSIDE RECORDS SUMMARY | 2024-12-31 23:02 | XMS_ITS | Encounter Summary ---
Author Organization [facility] Address [address] [place] [address] Care Team Providers Care Welder Fitter Apprentice Name Role Phone Marguerite Fernández DO Primary Care Provider Encounter Details Date Type Department Care Team (Latest Contact Info) Description 08/19/2005 Outpatient [facility] Kobi Hilario MD NO ADDRESS ON FILE Abnormal Mammogram, Unspecified (Primary Dx) Social History Tobacco Use Types Packs/Day Years Used Date Smoking Tobacco: Never Assessed Comments Unknown Sex and Gender Information Value Date Recorded Sex Assigned at Not on file 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
--- OUTSIDE RECORDS SUMMARY | 2024-12-31 23:02 | XMS_ITS | Encounter Summary ---
Author Organization [facility] Address [address] [place] [address] Care Team Providers Care Instrumentation Fitter Name Role Phone Marguerite Fernández DO Primary Care Provider Encounter Details Date Type Department Care Team (Latest Contact Info) Description 07/21/2003 Outpatient Historical [facility] Endocrinology-[facility] [place] [address] [place] [address] Kobi Hilario MD NO ADDRESS ON FILE HYPOTHYROIDISM NOS (Primary Dx); HYPERTENSION NOS; HYPERPARATHYROIDISM Social History Tobacco Use Types Packs/Day Years Used Date Smoking Tobacco: Never Assessed Comments Unknown Sex and Gender Information Value Date Recorded Sex Assigned at Not on file 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
--- OUTSIDE RECORDS SUMMARY | 2024-12-31 23:02 | XMS_ITS | Encounter Summary ---
Author Organization [facility] Address [address] [place] [address] Care Team Providers Care Commissary Superintendent Name Role Phone Marguerite Fernández Primary Care Provider [phone] Reason for Referral * Outpatient Services (Routine) - Closed Specialty Diagnoses / Procedures Referred By Contac t Referred To Contact Radiology Diagnoses Abnormal mammogram, unspecified Procedures MAMMO DIGITAL DIAG BILAT Komal Mccall APN [address] [address] Phone: tel: fax: [facility] [address] [address] Phone: tel: fax: Referral ID Status Reason Start Date Expiration Date V isits Requested Visits Authorized [id number] Closed [facility] TO SCHEDULE (SGF) 08/15/2014 09/15/2015 1 1 Encounter Details Date Type Department Care Team (Latest Contact Info) Description 08/15/2014 Ancillary Orders [facility] Pre-Registration [place] CALL TO MAKE APPOINTMENT ONLY [address] [place] [phone] Komal Mccall APN 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 RECOMMENDATION: Return to yearly screening mammogram. Patient received the result and recommendation letter. ABDIRASHID/guicho 1456 PM - uploaded from [employer] - Narrative 11/16/2014 9:33 PM CDT BILATERAL DIAGNOSTIC MAMMOGRAM: REASON FOR EXAM: Second 6 month followup for suspected benign nodular asymmetries and scattered calcifications in the left breast on diagnostic evaluation 11/14/2013 from screening 10/28/2013. Past history of right lumpectomy 2008. FAMILY HX.-BREAST Ca: Mother, and sister at age 56. IMAGING PERFORMED: Standard four view mammogram and left ML and CC spot magnification compression. COMPARISON(S): 05/15/2014, first 6 month followup, 11/14/2013, diagnostic evaluation, 10/28/2013, screening, 10/27/2012, 10/27/2011, and 10/25/2010. TISSUE COMPOSITION: There are scattered fibroglandular elements. MAMMOGRAPHIC FINDINGS: RIGHT BREAST: Stable post lumpectomy changes. No suspicious finding. No significant interval change. LEFT BREAST: Stable nodular asymmetries and calcifications diffusely scattered. No suspicious finding. No suspicious interval change. This digital mammogram was also analyzed by the Computer Aided Detection System (CAD), peerTransfer ImageChecker, Version 8.3. Komal Mccall APN MAMMO ORDERABLES Final Result documented in this encounter Visit Diagnoses Diagnosis Abnormal mammogram, unspecified- Primary Abnormal mammogram, unspecified documented in this encounter Care Teams Commissary Superintendent Relationship Specialty Start Date End Date Marguerite Fernández DO [address] [place] [address] PCP - General Family Practice 12/29/18 documented as of this encounter
--- OUTSIDE RECORDS SUMMARY | 2024-12-31 23:02 | XMS_ITS | Encounter Summary ---
Author Organization [facility] Address [address] [place] [address] Care Team Providers Care Timber Hewer Name Role Phone Marguerite Fernández DO Primary Care Provider Encounter Details Date Type Department Care Team (Late st Contact Info) Description 08/06/2007 Outpatient [facility] [address] [place] [address] Kobi Hilario MD NO ADDRESS ON FILE Social History Tobacco Use Types Packs/Day Years Used Date Smoking Tobacco: Never Assessed Comments Unknown Sex and Gender Information Value Date Recorded Sex Assigned at Not on file 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 Gender Identity Not on file Sexual Orientation Not on file documented as of this encounter Plan of Treatment Not on file documented as of this encounter Procedures Procedure Name Priority Date/Time Associated Diagnosis Comments MAMMO SCRN TO DIAG BILAT Routine 08/13/2007 1:59 PM CDT MAMMO SCREENING BILAT Routine 08/13/2007 1:57 PM CDT documented in this encounter Results * MAMMO SCRN TO DIAG BILAT (08/13/2007 1:59 PM CDT) Anatomical Region Laterality Modality Breast Other Narrative 08/13/2007 1:59 PM CDT Report Available in [facility] Procedure Note 04/24/2008 Report Available in [facility] us Kobi Hilario MD MAMMO ORDERABLES Final Resul t * MAMMO SCREENING BILAT (08/13/2007 1:57 PM CDT) Anatomical Region Laterality Modality Breast Bilateral Other Narrative 08/13/2007 1:57 PM CDT Report Available in [facility] Procedure Note 04/24/2008 Report Available in [facility] us Kobi Hilario MD MAMMO ORDERABLES Final Resul t documented in this encounter Visit Diagnoses Not on filedocumented in this encounter Care Teams Timber Hewer Relationship Specialty Start Date End Date Marguerite Fernández DO [address] [place] [address] PCP - General Family Practice 12/29/18 documented as of this encounter
--- OUTSIDE RECORDS SUMMARY | 2024-12-31 23:02 | XMS_ITS | Encounter Summary ---
Author Organization [facility] Address [address] [place] [address] Care Team Providers Care Measurement Analyst Name Role Phone Marguerite Fernández Primary Care Provider [phone]- [phone] Reason for Referral * Outpatient Services (Routine) - Closed Specialty Diagnoses / Procedures Referred By Julia fraser Referred To Contact Diagnoses Malignant neoplasm of overlapping sites of left female breast (CMS/HCC) Procedures CT GUIDED RAD THERAPY FIELD Hernesto Duncan MD [address] [place] [address] Phone: tel: fax: Referral ID Status Reason Start Date Expiration Date Visits Re quested Visits Authorized [id number] Closed 08/22/2016 09/22/2017 1 1 Encounter Details Date Type Department Care Team (Late st Contact Info) Description 08/22/2016 Ancillary Orders [facility] [address] [facility] [address] [place] [address] Hernesto Duncan MD [address] [place] [address] Malignant neoplasm of overlapping sites of left female breast (CMS/HCC) Social History Tobacco Use Types Packs/Day Years Used Date Smoking Tobacco: Former Cigarettes 0 10/14/1979 - 10/13/1981 Smokeless Tobacco: Never Alcohol Use Standard Drinks/Week Comments No 0 (1 standard drink = 0.6 oz pur e alcohol) Comments No Sex and Gender Information Value Date Recorded Sex Assigned at Not on file Legal Sex Female 4:06 AM 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 Exam was auto-finalized. Hernesto Duncan MD CT ORDERABLES Final Result documented in this encounter Visit Diagnoses Diagnosis Malignant neoplasm of overlapping sites of left female breast (CMS/HCC) Malignant neoplasm of other specified sites of female breast Malignant neoplasm of overlapping sites of left female breast (CMS/HCC) Malignant neoplasm of other specified sites of female breast documented in this encounter Care Teams Measurement Analyst Relationship Specialty Start Date End Date Marguerite Fernández DO [address] [place] [address] PCP - General Family Practice 12/29/18 documented as of this encounter
--- OUTSIDE RECORDS SUMMARY | 2024-12-31 23:02 | XMS_ITS | Encounter Summary ---
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 Social History Tobacco Use Types Packs/Day Years Used Date Smoking Tobacco: Former Cigarettes 0 10/14/1979 - 10/13/1981 Alcohol Use Standard Drinks/Week Comments No 0 (1 standard drink = 0.6 oz pur e alcohol) Comments No Sex and Gender Information Value Date Recorded Sex Assigned at Not on file Legal Sex Female 4:06 AM TAP AND DIE MAKER TECHNICIAN Gender Identity Not on file Sexual Orientation Not on file documented as of this encounter Plan of Treatment Not on file documented as of this encounter Results * US BIOPSY ABDOMEN (06/04/2010 11:44 AM CDT) Anatomical Region Laterality Modality Abdomen Ultrasound 06/04/2010 11:0 6 AM CDT Impressions 06/04/2010 5:39 PM CDT Impression: Ultrasound guided left hepatic mass biopsy. Narrative 06/04/2010 5:39 PM CDT Ultrasound Guided Biopsy: Left hepatic mass. - Jun 04, 2010 11:44:00 AM Clinical History: Left hepatic lymphangioma. History of breast cancer. Technique: Full PARQ conference was held. The patient understood and wished to proceed. Informed written consent was obtained. The patient was placed supine on the ultrasound imaging table. Following sterile prep and local anesthesia with 1% lidocaine, five core biopsies were obtained coaxially (17-gauge/18-gauge) from the left hepatic mass under ultrasound guidance. Specimens were sent for analysis. There were no immediate complications. Medications: 3.5 mg Versed, 125 mcg fentanyl for uncomplicated intravenous conscious sedation. Findings: Ultrasound guided left hepatic mass biopsy was performed as detailed above. Procedure Note Fercho Colón MD - 06/04/2010 Ultrasound Guided Biopsy: Left hepatic mass. - Jun 04, 2010 11:44:00 AM Clinical History: Left hepatic lymphangioma. History of breast cancer. Technique: Full PARQ conference was held. The patient understood and wished to proceed. Informed written consent was obtained. The patient was placed supine on the ultrasound imaging table. Following sterile prep and local anesthesia with 1% lidocaine, five core biopsies were obtained coaxially (17-gauge/18-gauge) from the left hepatic mass under ultrasound guidance. Specimens were sent for analysis. There were no immediate complications. Medications: 3.5 mg Versed, 125 mcg fentanyl for uncomplicated intravenous conscious sedation. Findings: Ultrasound guided left hepatic mass biopsy was performed as detailed above. IMPRESSION Impression: Ultrasound guided left hepatic mass biopsy. 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
--- OUTSIDE RECORDS SUMMARY | 2024-12-31 23:02 | XMS_ITS | Encounter Summary ---
Author Organization [facility] Address [address] [place] [address] Care Team Providers Care Vice President Of Advertising Name Role Phone Marguerite Fernández DO Primary Care Provider Encounter Details Date Type Department Care Team (Latest Contact Info) Description 11/12/2000 Outpatient Historical [facility] Dereck Elder Jr., MD [address] [place] [phone] Hyperpotassemia (Primary Dx) Social History Tobacco Use Types Packs/Day Years Used Date Smoking Tobacco: Never Assessed Comments Unknown Sex and Gender Information Value Date Recorded Sex Assigned at Not on file 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
--- OUTSIDE RECORDS SUMMARY | 2024-12-31 23:02 | XMS_ITS | Encounter Summary ---
Author Organization [facility] Address [address] [place] [address] Care Team Providers Care Background Investigator Name Role Phone Marguerite Fernández DO Primary Care Provider Encounter Details Date Type Department Care Team (Late st Contact Info) Description 05/14/2010 Ancillary Orders [facility] [address] [facility] [address] [place] [address] Andrew Dyer MD [address] [place] [address] Abnormal mammogram, unspecified Social History Tobacco Use Types Packs/Day Years Used Date Smoking Tobacco: Former Cigarettes 0 10/14/1979 - 10/13/1981 Alcohol Use Standard Drinks/Week Comments No 0 (1 standard drink = 0.6 oz pur e alcohol) Comments No Sex and Gender Information Value Date Recorded Sex Assigned at Not on file Legal Sex Female 4:06 AM 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 She has no complaints today. Bilateral craniocaudal and oblique views are obtained and supplemented with right magnification view. Comparison is made with prior exams of 10/16/08, 09/06/08, 08/13/07, 08/01/05, and postlumpectomy exams of 04/23/09, 10/22/09, and 04/26/10. There is average breast parenchymal density. No change is seen on the left. On the right, the scar is marked with a scar marker and there are several surgical clips. There is mild distortion at the lumpectomy site on the right which is stable compared The postlumpectomy mammograms. No suspicious masses or suspicious calcifications are seen. This digital mammogram was also analyzed by the Computer Aided Detection System (CAD), Tibersofter, Version 8.3. CONCLUSION: This completes the two years of close follow ups. I would recommend follow up bilateral screening mammogram in one year. Patient received a result/recommendation letter. LIBERTAD/nyasia Procedure Note Yessenia Lane MD - 11/11/2010 BILATERAL DIGITAL DIAGNOSTIC MAMMOGRAM, 10/25/10: The patient had a malignant lumpectomy on the right in September of 2008 andthis is her fourth follow up exam to complete her two years of closefollow ups. She has no complaints today. Bilateral craniocaudal andoblique views are obtained and supplemented with right magnification view.Comparison is made with prior exams of 10/16/08, 09/06/08, 08/13/07, 08/01/05,and postlumpectomy exams of 04/23/09, 10/22/09, and 04/26/10. There is averagebreast parenchymal density. No change is seen on the left. On the right,the scar is marked with a scar marker and there are several surgicalclips. There is mild distortion at the lumpectomy site on the right whichis stable compared The postlumpectomy mammograms. No suspicious massesor suspicious calcifications are seen. This digital mammogram was also analyzed by the Computer Aided DetectionSystem (CAD), [employer] ImageChecker, Version 8.3. CONCLUSION: This completes the two years of close follow ups. I wouldrecommend follow up bilateral screening mammogram in one year. Patient received a result/recommendation letter. LIBERTAD/nyasia us Andrew Dyer MD MAMMO ORDERABLES Final Result documented in this encounter Visit Diagnoses Diagnosis Abnormal mammogram, unspecified Abnormal mammogram, unspecified documented in this encounter Care Teams Background Investigator Relationship Specialty Start Date End Date Marguerite Fernández DO [address] [place] [address] PCP - General Family Practice 12/29/18 documented as of this encounter
--- OUTSIDE RECORDS SUMMARY | 2024-12-31 23:02 | XMS_ITS | Encounter Summary ---
Author Organization [facility] Address [address] [place] [address] Care Team Providers Care Entry Manager Name Role Phone Marguerite Fernández DO Primary Care Provider Encounter Details Date Type Department Care Team (Latest Contact Info) Description 01/17/2002 Outpatient Historical [facility] End[facility]inology-[facility] [place] Person [address] [place] [address] Kobi Hilario MD NO ADDRESS ON FILE HYPERPARATHYROIDISM (Primary Dx); HYPOCALCEMIA Social History Tobacco Use Types Packs/Day Years Used Date Smoking Tobacco: Never Assessed Comments Unknown Sex and Gender Information Value Date Recorded Sex Assigned at Not on file Legal Sex Female 4:06 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
--- OUTSIDE RECORDS SUMMARY | 2024-12-31 23:02 | XMS_ITS | Encounter Summary ---
Author Organization [facility] Address [address] [place] [address] Care Team Providers Care Forensics Team Director Name Role Phone Marguerite Fernández DO Primary Care Provider Encounter Details Date Type Department Care Team (Latest Contact Info) Description 08/01/2005 Outpatient Historical [facility] Ravi Duque Thomas [address] [place] [address] MD NO ADDRESS ON FILE Other Screening Mammogram (Primary Dx) Social History Tobacco Use Types Packs/Day Years Used Date Smoking Tobacco: Never Assessed Comments Unknown Sex and Gender Information Value Date Recorded Sex Assigned at Not on file Legal Sex Female 4:06 AM NOTE TAKER Gender Identity Not on file Sexual Orientation Not on file documented as of this encounter Plan of Treatment Not on file documented as of this encounter Visit Diagnoses Diagnosis Other screening mammogram- Primary documented in this encounter Care Teams Forensics Team Director Relationship Specialty Start Date End Date Marguerite Fernández DO [address] [place] [address] PCP - General Family Practice 12/29/18 documented as of this encounter
--- OUTSIDE RECORDS SUMMARY | 2024-12-31 23:02 | XMS_ITS | Encounter Summary ---
Author Organization [facility] Address [address] [place] [address] Care Team Providers Care Assembly Technician Name Role Phone Marguerite Fernández DO Primary Care Provider Encounter Details Date Type Department Care Team (Late st Contact Info) Description 07/26/2008 Ancillary Orders [facility] [address] [place] [address] Kobi Hilario MD NO ADDRESS ON FILE Other Screening Mammogram Social History Tobacco Use Types Packs/Day Years Used Date Smoking Tobacco: Never Assessed Comments No Sex and Gender Information Value Date Recorded Sex Assigned at Not on file 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
--- OUTSIDE RECORDS SUMMARY | 2024-12-31 23:02 | XMS_ITS | Encounter Summary ---
Author Organization [facility] Address [address] [place] [address] Care Team Providers Care Stock Counter Name Role Phone Marguerite Fernández DO Primary Care Provider Encounter Details Date Type Department Care Team (Latest Contact Info) Description 09/16/2001 Outpatient Historical [facility] Endocrinology-[facility] [address] [place] [address] Kobi Hilario MD NO ADDRESS ON FILE HYPOCALCEMIA (Primary Dx); HYPOTHYROIDISM NOS Social History Tobacco Use Types Packs/Day Years Used Date Smoking Tobacco: Never Assessed Comments Unknown Sex and Gender Information Value Date Recorded Sex Assigned at Not on file Legal Sex Female 4:06 AM CLINICAL EXERCISE SPECIALIST Gender Identity Not on file Sexual Orientation Not on file documented as of this encounter Plan of Treatment Not on file documented as of this encounter Visit Diagnoses Diagnosis Hypocalcemia- Primary Unspecified hypothyroidism documented in this encounter Care Teams Stock Counter Relationship Specialty Start Date End Date Marguerite Fernández DO [address] [place] [address] PCP - General Family Practice 12/29/18 documented as of this encounter
--- OUTSIDE RECORDS SUMMARY | 2024-12-31 23:02 | XMS_ITS | Encounter Summary ---
Author Organization [facility] Address [address] [facility] Attn: Epic Prelude ADT [place] [address] Care Team Providers Care Computer Scientist Name Role Phone Marguerite Fernández DO Primary Care Provider Encounter Details Date Type Department Care Team (Late st Contact Info) Description 09/29/2000 Inpatient Historical Jocelyn Philip MD [address] [facility] [address] [place] [address] Social History Tobacco Use Types Packs/Day Years Used Date Smoking Tobacco: Never Assessed Comments Unknown Sex and Gender Information Value Date Recorded Sex Assigned at Not on file Legal Sex Female 4:06 AM RN IMAGING Gender Identity Not on file Sexual Orientation Not on file documented as of this encounter Plan of Treatment Not on file documented as of this encounter Visit Diagnoses Not on filedocumented in this encounter Care Teams Computer Scientist Relationship Specialty Start Date End Date Marguerite Fernández DO [address] [place] [address] PCP - General Family Practice 12/29/18 documented as of this encounter
--- OUTSIDE RECORDS SUMMARY | 2024-12-31 23:02 | XMS_ITS | Encounter Summary ---
Author Organization [facility] Address [address] [facility] [place] [address] Care Team Providers Care Detective Homicide Squad Name Role Phone Marguerite Fernández Primary Care Provider [phone] Reason for Referral * Outpatient Services (Routine) - Closed Specialty Diagnoses / Procedures Referred By Julia fraser Referred To Contact Diagnoses Other screening mammogram Procedures MAMMO DIGITAL SCREEN BILAT Komal Mccall APN [address] [address] Phone: tel: fax: [facility] Pre-Registration [place] CALL TO MAKE APPOINTMENT ONLY [address] [place] [address] Phone: tel: fax: Referral ID Status Reason Start Date Expiration Date Visits Re quested Visits Authorized [id number] Closed 11/03/2011 11/02/2012 1 1 Encounter Details Date Type Department Care Team (Latest Contact Info) Description 11/03/[address] [facility] Pre-Registration [place] CALL TO MAKE APPOINTMENT ONLY [address] [place] [address] Komal Mccall APN 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 Gender Identity Not on file Sexual Orientation Not on file Occupation Industry Job Start Date Job End Date Not on file Not on file Not on file Not on file documented as of this encounter Plan of Treatment Not on file documented as of this encounter Results * MAMMO DIGITAL SCREEN BILAT (10/27/2012 9:47 AM CDT) Anatomical Region Laterality Modality Breast Bilateral Mammography Narrative 10/28/2012 10:22 AM CDT Bilateral Mammogram Reason for Exam: Screening Comparison: Compared to: 10/27/2011 MAMMO DIGITAL SCREEN BILAT, 10/25/2010 MAMMO DIGITAL DIAG BILAT, 04/26/2010 MAMMO DIGITAL DIAG UNI RIGHT, 10/22/2009 MAMMO DIGITAL DIAG BILAT, 04/23/2009 MAMMO DIGITAL DIAG BILAT, 10/06/2008 MAMMO UNILATERAL ADDL VW RIGHT, 09/27/2008 MAMMO DIGITAL DIAG UNI RIGHT, 09/06/2008 MAMMO DIGITAL SCREEN BILAT, 08/13/2007 MAMMO SCREENING BILAT Findings: Bilateral CC and MLO views were obtained. This examination was reviewed with the aid of a computer-aided detection system(CAD). The breast tissue density is average. No significant new findings since the prior mammogram(s). Procedure Note Yessenia Lane MD - 10/28/2012 Bilateral Mammogram Reason for Exam: Screening Comparison: Compared to: 10/27/2011 MAMMO DIGITAL SCREEN BILAT, 10/25/2010MAMMO DIGITAL DIAG BILAT, 04/26/2010 MAMMO DIGITAL DIAG UNI RIGHT,10/22/2009 MAMMO DIGITAL DIAG BILAT, 04/23/2009 MAMMO DIGITAL DIAG BILAT,10/06/2008 MAMMO UNILATERAL ADDL VW RIGHT, 09/27/2008 MAMMO DIGITAL DIAGUNI RIGHT, 09/06/2008 MAMMO DIGITAL SCREEN BILAT, 08/13/2007 MAMMOSCREENING BILAT Findings: Bilateral CC and MLO views were obtained. This examination was reviewed with the aid of a computer-aided detectionsystem(CAD). The breast tissue density is average. No significant new findings since the prior mammogram(s). Komal Mccall BUFFERER MAMMO ORDERABLES Final Result documented in this encounter Visit Diagnoses Diagnosis Other screening mammogram Other screening mammogram documented in this encounter Care Teams Detective Homicide Squad Relationship Specialty Start Date End Date Marguerite Fernández DO [address] [place] [phone] PCP - General Family Practice 12/29/18 documented as of this encounter
--- OUTSIDE RECORDS SUMMARY | 2024-12-31 23:02 | XMS_ITS | Encounter Summary ---
Author Organization [facility] Address [address] [place] [address] Care Team Providers Care Compounding Scaler Name Role Phone Marguerite Fernández Primary Care Provider Encounter Details Date Type Department Care Team (Latest Contact Info) Description 11/18/2010 Ancillary Orders [facility] Pre-Registration [place] CALL TO MAKE APPOINTMENT ONLY [address] [place] [address] Komal Mccall APN [address] [address] Other screening mammogram Social History Tobacco Use Types Packs/Day Years Used Date Smoking Tobacco: Former Cigarettes 0 10/14/1979 - 10/13/1981 Smokeless Tobacco: Never Alcohol Use Standard Drinks/Week Comments No 0 (1 standard drink = 0.6 oz pur e alcohol) Comments No Sex and Gender Information Value Date Recorded Sex Assigned at Not on file Legal Sex Female 4:06 AM APPOINTMENT MANAGER Gender Identity Not on file Sexual Orientation Not on file documented as of this encounter Plan of Treatment Not on file documented as of this encounter Results * MAMMO DIGITAL SCREEN BILAT (10/27/2011 10:13 AM CDT) Anatomical Region Laterality Modality Breast Bilateral Mammography Narrative 10/28/2011 9:50 AM CDT Bilateral Mammogram Reason for Exam: Screening Comparison: Comparison is made with the prior exam(s) dated 8.5.11 2.4.11 8.2.10 2.1.10 7.17.09 6.17.09 5.23.08 5.12.06 Findings: Bilateral CC and MLO views were obtained. This examination was reviewed with the aid of a computer-aided detection system(CAD). The breast tissue density is average. No significant new findings since the prior mammogram(s). Procedure Note Yessenia Lane MD - 10/28/2011 Bilateral Mammogram Reason for Exam: Screening Comparison: Comparison is made with the prior exam(s) dated 8.5.112.4.11 8.2.10 2.1.10 7.17.09 6.17.09 5.23.08 5.12.06 Findings: Bilateral CC and MLO views were obtained. This examination was reviewed with the aid of a computer-aided detectionsystem(CAD). The breast tissue density is average. No significant new findings since the prior mammogram(s). Komal Mccall LABORER [employer]LLF[employer] PROCESSING MAMMO ORDERABLES Final Result documented in this encounter Visit Diagnoses Diagnosis Other screening mammogram Other screening mammogram documented in this encounter Care Teams Compounding Scaler Relationship Specialty Start Date End Date Marguerite Fernández DO [address] [place] [address] PCP - General Family Practice 12/29/18 documented as of this encounter
--- OUTSIDE RECORDS SUMMARY | 2024-12-31 23:02 | XMS_ITS | Encounter Summary ---
Author Organization [facility] Address [address] [place] [address] Care Team Providers Care Language Instructor Name Role Phone Marguerite Fernández DO Primary Care Provider Encounter Details Date Type Department Care Team (Latest Contact Info) Description 08/12/2001 Outpatient Historical [facility] Dereck Elder Jr., MD [address] [place] [address] HYPOCALCEMIA (Primary Dx); Vaccine for viral hepatitis Social History Tobacco Use Types Packs/Day Years Used Date Smoking Tobacco: Never Assessed Comments Unknown Sex and Gender Information Value Date Recorded Sex Assigned at Not on file 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
--- OUTSIDE RECORDS SUMMARY | 2024-12-31 23:02 | XMS_ITS | Clinical Summary ---
Author Organization [facility] Address [address] [place] [address] Phone Care Team Providers Care Youth Ministry Director Name Role Phone Marguerite Fernández DO Primary Care Provider [phone] Allergies Active Allergy Reactions Criticality Noted Date Comments Iodinated Contrast Media Rash Low 01/08/2016 Latex Rash Low 01/28/2016 Patient states she can blow up latex balloons with no difficulty, can wear underwear with elastic, only complaint is redness with tape Medications * This document contains information received from the source organization and may not represent a complete record from that organization. JANUVIA 25 MG tablet Take 25 mg by mouth 1 (one) time each day with breakfast 5 9 Active levothyroxine (SYNTHROID, LEVOTHROID) 100 MCG tablet Take 100 mcg by mouth 1 (one) time each day Per instructed per doctor not to take on thursday 9 Active anastrozole (ARIMIDEX) 1 MG chemo tablet Take 1 tablet by mouth 1 (one) time each day 2 9 Active Calcium Carb-Cholecalci ferol (CALCIUM + VITAMIN D3 PO) Take 1 tablet by mouth twice a day Active Biotin 70762 MCG tablet Take 1 tablet by mouth daily Active acetaminophen (TYLENOL) 325 MG tablet Take 650 mg by mouth Active omega-3 acid ethyl esters (LOVAZA) 1 g capsule Take 2 g by mouth 2 (two) times a day Active saccharomyces boulardii (FLORASTOR) 250 MG capsule Take 250 mg by mouth 3 times a day Active Active Problems Problem Noted Date Diagnosed Date Generalized anxiety 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 Anemia of chronic disease 01/16/2019 Chronic kidney disease stage 3 01/16/2019 Acute cystitis without hematuria 12/07/2018 [id number] renal failure 12/07/2018 Type 2 diabetes mellitus 05/21/2017 Osteopenia 10/31/2016 Pulmonary embolism 10/02/2016 Neuropathy 08/01/2016 Eruption 06/27/2016 Liver function tests outside reference range 09/2016 Anemia in neoplastic disease 06/08/2016 Cancer-related fatigue 06/08/2016 Blood leukocyte number below reference range 12/2016 Hypokalemia 05/02/2016 Multiple nodules of lung 01/27/2016 Body mass index 30+ - obesity 12/11/2015 Malignant neoplasm of central portion of female breast 12/11/2015 Essential hypertension 08/10/2009 Postsurgical hypothyroidism 08/10/2009 Immunizations Immunization Administration Dates Next Due Hepatitis B 08/12/2001,12/16/2000 Influenza Split High Dose Preservative Free IM 1 ,12/29/2018 Influenza TIV (IM) 12/31/2015 Pneumococcal Conjugate 13-Valent 12/29/2018 Pneumococcal Polysaccharide 01/11/2020 Zoster 02/22/2020 Family History Medical History Relation Comments Diabetes Father Hypertension Father Hypertension Sibling Relation Status Comments Father Mother Sibling Social History Tobacco Use Types Packs/Day Years [...] on file Sexual Orientation Not on file Last Filed Vital Signs Vital Sign Reading Time Taken Comments Blood Pressure 136/68 02/04/2021 10:04 AM BRONC BREAKER Pulse 72 02/04/2021 10:04 AM BRONC BREAKER Temperature 36.1 C (97 F) 08/29/2020 2:01 PM CDT Respiratory Rate - - Oxygen Saturation - - Inhaled Oxygen Concentration - - Weight 96.3 kg (212 lb 3.2 oz) 02/04/2021 10:04 AM BRONC BREAKER Height 162.6 cm (5' 4 ) 02/04/2021 10:04 AM BRONC BREAKER Body Mass Index 36.42 02/04/2021 10:04 AM BRONC BREAKER Plan of Treatment Health Maintenance Due Date Last Done Comments Diabetes: Pedal Pulse Checked 02/07/2019 Diabetes: Sensory Foot Exam 02/07/2019 Diabetes: Visual Foot Exam 02/07/2019 Diabetes: Hemoglobin A1C 09/04/2020 021, 10/03/2019, 10/03/2019, Additional history exists Diabetes: Ophthalmology Exam 01/18/2021 01/19/2020 Influenza Vaccine (#1) 2024 0, 12/29/2018, 12/31/2015 Hepatitis B Vaccine Aged Out 08/12/2001, 1 No longer eligible based on patient's age to complete this topic Pneumococcal Vaccine: 50+ Years Completed 01/11/2020, 12/29/2018 Pneumococcal Vaccine: Peds (0 to 5 Years) and At-Risk Patients (6 to 49 Years) Discontinued 01/11/2020, 12/29/2018 Procedures Procedure Name Priority Date/Time Associated Diagnosis Comments HEMOGLOBIN A1C (EXTERNAL RESULT ENTRY) Routine 10/03/2019 from Last 3 Months or Most Recently Relevant to Health Maintenance Results * Hemoglobin A1C (10/03/2019) Hemoglobin A1C 4.9 Blood specimen (specimen) Venous blood / Unknown 10/03/2019 Narrative Tere Infante MA - 10/03/2019 [facility] # [id number] [address] [place] [id number] DIRECTOR: JUICE VAZQUEZ MD [facility] [phone] Alfredito Roth PA-C LAB BLOOD ORDERABLES Final R esult from Last 3 Months or Most Recently Relevant to Health Maintenance Insurance Medicare [facility] [place] [id number] Care Teams Youth Ministry Director Relationship Specialty Start Date End Date Marguerite Fernández DO PCP - General Family Medicine 10/18/19
--- OUTSIDE RECORDS SUMMARY | 2024-12-31 23:02 | XMS_ITS | Encounter Summary ---
Author Organization [facility] Address [address] [place] [address] Care Team Providers Care Burner Machine Operator Name Role Phone Marguerite Fernández DO Primary Care Provider [phone] Encounter Details Date Type Department Care Team (Late st Contact Info) Description 03/07/2009 Ancillary Orders [facility] Gen Spec Surg 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
--- OUTSIDE RECORDS SUMMARY | 2024-12-31 23:02 | XMS_ITS | Encounter Summary ---
Author Organization [facility] Address [address] [place] [address] Care Team Providers Care Collar Packer Name Role Phone Marguerite Fernández DO Primary Care Provider [phone] Encounter Details Date Type Department Care Team (Latest Contact Info) Description 02/13/2010 Ancillary Orders [facility] CT Scan [address] [place] [address] Fercho Colón MD NO ADDRESS ON FILE [...] on file Legal Sex Female 4:06 AM DIRECTOR OF GROUP SALES Gender Identity Not on file Sexual Orientation Not on file documented as of this encounter Plan of Treatment Not on file documented as of this encounter Visit Diagnoses Diagnosis Liver masses Unspecified disorder of liver History of breast cancer Personal history of malignant neoplasm of breast documented in this encounter Care Teams Collar Packer Relationship Specialty Start Date End Date Marguerite Fernández DO [address] [place] [address] PCP - General Family Practice 12/29/18 documented as of this encounter
--- OUTSIDE RECORDS SUMMARY | 2024-12-31 23:02 | XMS_ITS | Encounter Summary ---
Author Organization [facility] Address [address] [place] [address] Care Team Providers Care Regulatory Consultant Name Role Phone Marguerite Fernández DO Primary Care Provider Encounter Details Date Type Department Care Team (Latest Contact Info) Description 10/21/2000 Outpatient Historical [facility] Justo Bhatti MD [address] [place] [address] Other specified aftercare following surgery (Primary Dx) Social History Tobacco Use Types Packs/Day Years Used Date Smoking Tobacco: Never Assessed Comments Unknown Sex and Gender Information Value Date Recorded Sex Assigned at Not on file Legal Sex Female 4:06 AM GREASE BUFFER Gender Identity Not on file Sexual Orientation Not on file documented as of this encounter Plan of Treatment Not on file documented as of this encounter Visit Diagnoses Diagnosis Other specified aftercare following surgery- Primary documented in this encounter Care Teams Regulatory Consultant Relationship Specialty Start Date End Date Marguerite Fernández DO [address] [place] [address] PCP - General Family Practice 12/29/18 documented as of this encounter
--- OUTSIDE RECORDS SUMMARY | 2024-12-31 23:02 | XMS_ITS | Encounter Summary ---
Author Organization [facility] Address [address] [place] [address] Care Team Providers Care Chemistry Specialist Name Role Phone Marguerite Fernández DO Primary Care Provider Encounter Details Date Type Department Care Team (Latest Contact Info) Description 09/27/2008 Ancillary Orders [facility] [address] [facility] [address] [place] [address] Kobi Hilario MD NO ADDRESS ON FILE Other Abnormal Findings on Radiological Examination of Breast Social History Tobacco Use Types Packs/Day Years Used Date Smoking Tobacco: Never Assessed Comments No Sex and Gender Information Value Date Recorded Sex Assigned at Not on file 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 Procedure Note Yessenia Lane MD - 09/28/2008 Ultrasound report is included in the diagnostic mammogram report of09/27/08. us Kobi Hilario MD MAMMO ORDERABLES Final Resul t documented in this encounter Visit Diagnoses Diagnosis Other (abnormal) findings on radiological examination of breast Other (abnormal) findings on radiological examination of breast documented in this encounter Care Teams Chemistry Specialist Relationship Specialty Start Date End Date Marguerite Fernández DO [address] [place] [address] PCP - General Family Practice 12/29/18 documented as of this encounter
--- OUTSIDE RECORDS SUMMARY | 2024-12-31 23:02 | XMS_ITS | Encounter Summary ---
Author Organization [facility] Address [address] [place] [address] Care Team Providers Care Aviation Safety Officer Name Role Phone Marguerite Fernández Primary Care Provider [phone] Reason for Referral * Outpatient Services (Routine) - Closed Specialty Diagnoses / Procedures Referred By Contac t Referred To Contact Radiology Diagnoses Other (abnormal) findings on radiological examination of breast Procedures MAMMO DIGITAL DIAG UNI LEFT Komal Mccall APN [address] [address] Phone: tel: fax: [facility] [address] [address] Phone: tel: fax: Referral ID Status Reason Start Date Expiration Date Visits Requested Visits Authorized [id number] Closed Performing Department To Schedule (SGF) 11/01/2013 12/02/2014 1 1 Encounter Details Date Type Department Care Team (Latest Contact Info) Description 11/01/2013 Ancillary Orders [facility] [address] [address] Komal Mccall APN 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 The patient had a screening on 10/28/2013 and there were multiple areas marked on the screening mammogram including nodular tissue and calcifications. Multiple additional views were obtained including craniocaudal and true lateral views and craniocaudal and true lateral magnified views and spot compression views also. The nodular tissue appears to be stable. The calcifications that are seen at the nipple line appear to be scattered predominately punctate probably benign type calcifications. I do not see a discrete or suspicious finding on the additional views. The parenchymal pattern is quite nodular and asymmetrical with scattered fibroglandular densities. I suspect all of these findings including the waxing and waning nodularity is due to fibrocystic change and I would simply recommend a short interval followup in six months. I gave the patient a verbal and written report today. We also gave her information about fibrocystic change of the breast. Conclusion: I would recommend left diagnostic mammogram in six months' time. Patient received a result/recommendation letter. LIBERTAD/nyasia - uploaded from [email or web address] Scribe - Procedure Note Yessenia Lane MD - 11/15/2013 Left additional views, 11/14/2013. The patient had a screening on 10/28/2013 and there were multiple areas marked on the screening mammogram including nodular tissue and calcifications. Multiple additional views were obtained including craniocaudal and true lateral views and craniocaudal and true lateral magnified views and spot compression views also. The nodular tissue appears to be stable. The calcifications that are seen at the nipple line appear to be scattered predominately punctate probably benign type calcifications. I do not see a discrete or suspicious finding on the additional views. The parenchymal pattern is quite nodular and asymmetrical with scattered fibroglandular densities. I suspect all of these findings including the waxing and waning nodularity is due to fibrocystic change and I would simply recommend a short interval followup in six months. I gave the patient a verbal and written report today. We also gave her information about fibrocystic change of the breast. Conclusion: I would recommend left diagnostic mammogram in six months' time. Patient received a result/recommendation letter. LIBERTAD/nyasia - uploaded from [employer] - us Komal Mccall ELECTRICAL LINE SPLICER MAMMO ORDERABLES Final Result documented in this encounter Visit Diagnoses Diagnosis Other (abnormal) findings on radiological examination of breast- Primary Other (abnormal) findings on radiological examination of breast documented in this encounter Care Teams Aviation Safety Officer Relationship Specialty Start Date End Date Marguerite Fernández DO [address] [place] [address] PCP - General Family Practice 12/29/18 documented as of this encounter
--- OUTSIDE RECORDS SUMMARY | 2024-12-31 23:02 | XMS_ITS | Encounter Summary ---
Author Organization [facility] Address [address] [place] [address] Care Team Providers Care Supervisor Frame Assembly Name Role Phone Marguerite Fernández DO Primary Care Provider [phone] Encounter Details Date Type Department Care Team (Latest Contact Info) Description 05/16/2010 Ancillary Orders [facility] CT Scan [address] [place] [phone] Fercho Colón MD NO ADDRESS ON FILE [...] on file Legal Sex Female 4:06 AM MILK INSPECTOR Gender Identity Not on file Sexual Orientation Not on file documented as of this encounter Plan of Treatment Not on file documented as of this encounter Results * CT ABDOMEN W CONTRAST (05/17/2010 10:19 AM MILK INSPECTOR) Anatomical Region Laterality Modality Abdomen Computed Tomogra phy 05/17/2010 9:55 AM MILK INSPECTOR Addenda Addendum by Fercho Veliz MD on 06/17/2010 9:32 PM CDT ATTENTION: PLEASE DISREGARD THIS ACCESSION NUMBER. The exam was ordered with the wrong ordering physician. The exam has been reordered with the correct information, and the report has been moved to the new accession number: [id number]. jaw - transcribed in Epic - Impressions 05/17/2010 1:39 PM MILK INSPECTOR Impression: Lobulated mass coming off the left lobe of the liver. This becomes isodense on delayed phase imaging. Malignant entities would be a considerations such as hepatoma or metastatic disease. Nonmalignant entities could include atypical hemangioma. MRI of the liver may be helpful if further workup is required. Gallstones but no other signs for cholecystitis. Other incidental findings are as described above. jlf 1131 - uploaded from [employer] - Narrative 05/17/2010 1:39 PM MILK INSPECTOR Exam: CT ABDOMEN W CONTRAST Date/Time of Exam: May 17, 2010 10:19:00 AM History: LIVER MASSES. Technique: CT of the abdomen was performed following the administration of intravenous contrast. Contrast: Axial sections were obtained through the abdomen and pelvis with oral and 125 mL Optiray-240 intravenous contrast. Scans were obtained during the early and late phases of postcontrast administration. Findings: Best seen on the early phase imaging is a lobulated mass coming off the posterior aspect of the left lobe of the thyroid (series 2A, slice 22) measuring 4.6 x 7.0 cm. On later images this becomes isodense to liver parenchyma. No peripheral enhancement is seen. Other aspects of the liver appear intact. Spleen, pancreas, adrenals, and kidneys have normal configuration. Retroperitoneum shows normally sized vascular structures and no abnormal masses or adenopathy. The gallbladder shows a calcified gallstone. No biliary dilatation is seen. Lung bases are clear. Procedure Note Fercho Veliz MD - 06/17/2010 Exam: CT ABDOMEN W CONTRAST Date/Time of Exam: May 17, 2010 10:19:00 AM History: LIVER MASSES. Technique: CT of the abdomen was performed following the administration of intravenous contrast. Contrast: Axial sections were obtained through the abdomen and pelvis with oral and 125 mL Optiray-240 intravenous contrast. Scans were obtained during the early and late phases of postcontrast administration. Findings: Best seen on the early phase imaging is a lobulated mass coming off the posterior aspect of the left lobe of the thyroid (series 2A, slice 22) measuring 4.6 x 7.0 cm. On later images this becomes isodense to liver parenchyma. No peripheral enhancement is seen. Other aspects of the liver appear intact. Spleen, pancreas, adrenals, and kidneys have normal configuration. Retroperitoneum shows normally sized vascular structures and no abnormal masses or adenopathy. The gallbladder shows a calcified gallstone. No biliary dilatation is seen. Lung bases are clear. IMPRESSION Impression: Lobulated mass coming off the left lobe of the liver. This becomes isodense on delayed phase imaging. Malignant entities would be a considerations such as hepatoma or metastatic disease. Nonmalignant entities could include atypical hemangioma. MRI of the liver may be helpful if further workup is required. Gallstones but no other signs for cholecystitis. Other incidental findings are as described above. gulshan 1131 - uploaded from [employer] - Fercho Colón MD CT ORDERABLES Edited Result - Final documented in this encounter Visit Diagnoses Diagnosis Liver masses Unspecified disorder of liver History of breast cancer Personal history of malignant neoplasm of breast Liver masses Unspecified disorder of liver History of breast cancer Personal history of malignant neoplasm of breast documented in this encounter Care Teams Supervisor Frame Assembly Relationship Specialty Start Date End Date Marguerite Fernández DO [address] [place] [address] PCP - General Family Practice 12/29/18 documented as of this encounter
--- OUTSIDE RECORDS SUMMARY | 2024-12-31 23:02 | XMS_ITS | Encounter Summary ---
Author Organization [facility] Address [address] [place] [address] Care Team Providers Care Powerhouse Tender Name Role Phone Marguerite Fernández DO Primary Care Provider Encounter Details Date Type Department Care Team (Late st Contact Info) Description 10/13/2008 Ancillary Orders [facility] Gen Spec Surg 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
--- OUTSIDE RECORDS SUMMARY | 2024-12-31 23:02 | XMS_ITS | Encounter Summary ---
Author Organization [facility] Address [address] [place] [address] Care Team Providers Care Dietary Tech Name Role Phone Marguerite Fernández DO Primary Care Provider Encounter Details Date Type Department Care Team (Latest Contact Info) Description 11/25/2000 Outpatient Historical [facility] [address] [place] [address] Kobi Hilario MD NO ADDRESS ON FILE Hypocalcemia (Primary Dx) Social History Tobacco Use Types Packs/Day Years Used Date Smoking Tobacco: Never Assessed Comments Unknown Sex and Gender Information Value Date Recorded Sex Assigned at Not on file Legal Sex Female 4:06 AM MAKEUP EDITOR Gender Identity Not on file Sexual Orientation Not on file documented as of this encounter Plan of Treatment Not on file documented as of this encounter Visit Diagnoses Diagnosis Hypocalcemia- Primary documented in this encounter Care Teams Dietary Tech Relationship Specialty Start Date End Date Marguerite Fernández DO [address] [place] [address] PCP - General Family Practice 12/29/18 documented as of this encounter
--- OUTSIDE RECORDS SUMMARY | 2024-12-31 23:02 | XMS_ITS | Encounter Summary ---
Author Organization [facility] Address [address] [facility] Attn: Epic Prelude ADT [place] [address] Care Team Providers Care Train Driver Name Role Phone Marguerite Fernández DO Primary Care Provider Encounter Details Date Type Department Care Team (Late st Contact Info) Description 10/23/2000 Inpatient Historical Kobi Hilario MD NO ADDRESS ON FILE Social History Tobacco Use Types Packs/Day Years Used Date Smoking Tobacco: Never Assessed Comments Unknown Sex and Gender Information Value Date Recorded Sex Assigned at Not on file Legal Sex Female 4:06 AM NEURO OPHTHALMOLOGIST Gender Identity Not on file Sexual Orientation Not on file documented as of this encounter Plan of Treatment Not on file documented as of this encounter Visit Diagnoses Not on filedocumented in this encounter Care Teams Train Driver Relationship Specialty Start Date End Date Marguerite Fernández DO [address] [place] [facility] [place] [address] PCP - General Family Practice 12/29/18 documented as of this encounter
--- OUTSIDE RECORDS SUMMARY | 2024-12-31 23:02 | XMS_ITS | Encounter Summary ---
Author Organization [facility] Address [address] [place] [address] Care Team Providers Care Systems Spec Name Role Phone Marguerite Fernández DO Primary Care Provider Encounter Details Date Type Department Care Team (Late st Contact Info) Description 03/07/2009 Ancillary Orders [facility] [place] [address] [place] [address] Shahla Mcdaniel, RN [address] 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
--- OUTSIDE RECORDS SUMMARY | 2024-12-31 23:02 | XMS_ITS | Encounter Summary ---
Author Organization [facility] Address [address] [place] [address] Care Team Providers Care Efficiency Manager Name Role Phone Marguerite Fernández Primary Care Provider [phone] Reason for Referral * Outpatient Services (Routine) - Closed Specialty Diagnoses / Procedures Referred By Julia fraser Referred To Contact Diagnoses Liver masses History of breast cancer Procedures US LIVER Dereck Elder Jr., MD [facility] [place] [address] Phone: tel: fax: Referral ID Status Reason Start Date Expiration Date Visits Re quested Visits Authorized [id number] Closed 06/06/2010 12/03/2010 1 1 * Outpatient Services (Routine) - Closed Specialty Diagnoses / Procedures Referred By Julia fraser Referred To Contact Diagnoses Liver masses History of breast cancer Procedures CT ABDOMEN W CONTRAST Dereck Elder Jr., MD [address] [place] [address] Phone: tel: fax: Referral ID Status Reason Start Date Expiration Date Visits Re quested Visits Authorized [id number] Closed 06/06/2010 12/03/2010 1 1 Encounter Details Date Type Department Care Team (Latest Contact Info) Description 06/06/2010 Ancillary Orders [facility] Scan [address] [place] [address] Dereck Elder Jr., MD [address] [place] [address] Liver masses; History of breast cancer Social History Tobacco Use Types Packs/Day Years Used Date Smoking Tobacco: Former Cigarettes 0 10/14/1979 - 10/13/1981 Alcohol Use Standard Drinks/Week Comments No 0 (1 standard drink = 0.6 oz pur e alcohol) Comments No Sex and Gender Information Value Date Recorded Sex Assigned at Not on file Legal Sex Female 4:06 AM STATE FIRE MARSHAL Gender Identity Not on file Sexual Orientation Not on file documented as of this encounter Plan of Treatment Not on file documented as of this encounter Results * CT ABDOMEN W CONTRAST (05/17/2010 10:19 AM STATE FIRE MARSHAL) Anatomical Region Laterality Modality Abdomen Computed Tomogra phy 05/17/2010 9:55 AM STATE FIRE MARSHAL Addenda Addendum by Fercho Veliz MD on 06/17/2010 9:32 PM CDT ATTENTION: This replaces accession number [id number]. jaw - transcribed in [facility] - Impressions 06/06/2010 12:02 PM CDT Impression: Lobulated mass coming off the left [...] described above. [email or web address] 1131 - uploaded from [employer] - Narrative 06/06/2010 12:02 PM CDT Exam: CT ABDOMEN W CONTRAST Date/Time of [...] described above. gulshan 1131 - uploaded from [employer] - us Dereck Elder Jr., MD CT ORDERABLES Edited Result - Final * US LIVER (05/17/2010 9:33 AM STATE FIRE MARSHAL) Anatomical Region Laterality Modality Abdomen Ultrasound 05/17/2010 8:44 AM STATE FIRE MARSHAL Addenda Addendum by César Cardona MD on 07/17/2010 10:06 PM CDT ATTENTION: This replaces accession number [id number]. jaw - transcribed in Epic - Impressions 06/06/2010 12:06 PM CDT Impression: 1. 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 Cholelithiasis, there is one less than 1 cm gallstone. [facility] 1551 PM - uploaded from [employer]- Narrative 06/06/2010 12:06 PM CDT Exam: US LIVER Date/Time of Exam: May [...] gallstone. guicho 1551 PM - uploaded from [employer]- us Dereck Elder Jr., MD ORDERABLES Edited Result - Final documented in this encounter Visit Diagnoses Diagnosis Liver masses Unspecified disorder of liver History of breast cancer Personal history of malignant neoplasm of breast documented in this encounter Care Teams Efficiency Manager Relationship Specialty Start Date End Date Marguerite Fernández DO [address] [place] [address] PCP - General Family Practice 12/29/18 documented as of this encounter
--- OUTSIDE RECORDS SUMMARY | 2024-12-31 23:02 | XMS_ITS | Encounter Summary ---
Author Organization [facility] Address [address] [place] [address] Care Team Providers Care Demolition Specialist Name Role Phone Marguerite Fernández DO Primary Care Provider Encounter Details Date Type Department Care Team (Latest Contact Info) Description 10/15/2000 Outpatient Historical [facility] Dereck Elder Jr., MD [address] [place] [phone] Unspecified hypothyroidism (Primary Dx) Social History Tobacco Use Types Packs/Day Years Used Date Smoking Tobacco: Never Assessed Comments Unknown Sex and Gender Information Value Date Recorded Sex Assigned at Not on file 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
--- OUTSIDE RECORDS SUMMARY | 2024-12-31 23:02 | XMS_ITS | Encounter Summary ---
Author Organization [facility] Address [address] [place] [address] Care Team Providers Care Credit Authorizer Name Role Phone Marguerite Fernández DO Primary Care Provider Encounter Details Date Type Department Care Team (Late st Contact Info) Description 10/22/2009 Ancillary Orders [facility] Gen Spec Surg 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 This is the patient's second postoperative mammogram following malignant lumpectomy. The findings are stable bilaterally, and continued observation is recommended. A right diagnostic mammogram is recommended in six months. The patient was given a result/recommendation letter. KG/jaw Narrative 10/24/2009 5:26 PM CDT BILATERAL DIAGNOSTIC MAMMOGRAM: Bilateral CC and MLO views are obtained with spot magnification views in the CC projection on the right. Comparison was made to several prior examinations dating back to 08/01/2005. This is the patient's second postoperative mammogram following malignant lumpectomy on the right at the 9 o'clock position, yearly examination on the left. There is a moderate degree of parenchymal tissue. The distribution of the tissue on the left is stable and unremarkable. On the right, there are a few calcifications centrally which have been present and continue to favor a probably benign process. The surgical changes at the lumpectomy site are stable as well, and the patient is denying any complaints. This digital mammogram was also analyzed by the Computer Aided Detection System (CAD), R2 ImageChecker, Version 8.3. Procedure Note Maria R Chan MD - 10/24/2009 BILATERAL DIAGNOSTIC MAMMOGRAM: Bilateral CC and MLO views are obtained with spot magnification views inthe CC projection on the right. Comparison was made to several priorexaminations dating back to 08/01/2005. This is the patient's secondpostoperative mammogram following malignant lumpectomy on the right at the9 o'clock position, yearly examination on the left. There is a moderate degree of parenchymal tissue. The distribution of thetissue on the left is stable and unremarkable. On the right, there are a few calcifications centrally which have beenpresent and continue to favor a probably benign process. The surgicalchanges at the lumpectomy site are stable as well, and the patient isdenying any complaints. This digital mammogram was also analyzed by the Computer Aided DetectionSystem (CAD), R2 ImageChecker, Version 8.3. IMPRESSION: Bilateral diagnostic mammogram was performed as a second cye-qsjyaiqsxqw-li on the right, yearly examination on the left. This is thepatient's second postoperative mammogram following malignant lumpectomy.The findings are stable bilaterally, and continued observation isrecommended. A right diagnostic mammogram is recommended in six months. The patient was given a result/recommendation letter. KG/jaw us Andrew Dyer MD MAMMO ORDERABLES Final Result documented in this encounter Visit Diagnoses Diagnosis Abnormal mammogram, unspecified Abnormal mammogram, unspecified documented in this encounter Care Teams Credit Authorizer Relationship Specialty Start Date End Date Marguerite Fernández DO [address] [place] [address] PCP - General Family Practice 12/29/18 documented as of this encounter
--- OUTSIDE RECORDS SUMMARY | 2024-12-31 23:02 | XMS_ITS | Encounter Summary ---
Author Organization [facility] Address [address] [place] [address] Care Team Providers Care Activities Specialist Name Role Phone Marguerite Fernández DO Primary Care Provider Encounter Details Date Type Department Care Team (Late st Contact Info) Description 07/20/2007 Outpatient Historical [facility] CANCELLED ADMISSION César Sanders MD [address] [facility] [address] [place] [phone] Other and Unspecified Angina Pectoris Social History Tobacco Use Types Packs/Day Years Used Date Smoking Tobacco: Never Assessed Comments Unknown Sex and Gender Information Value Date Recorded Sex Assigned at Not on file Legal Sex 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 Gender Identity Not on file Sexual Orientation Not on file documented as of this encounter Plan of Treatment Not on file documented as of this encounter Procedures Procedure Name Priority Date/Time Associated Diagnosis Comments POC ACTIVATED CLOTTING TIME Routine 07/22/2007 4:23 PM CDT documented in this encounter Results * (ABNORMAL) POC ACTIVATED CLOTTING TIME (07/22/2007 4:23 PM CDT) ACT POC 186(H) 79 - 149 sec [facility] Blood specimen (specimen) 07/22/2007 4:23 PM CDT 07/23/2007 12:03 PM CDT us César Sanders MD POINT OF CARE TESTING Final Result [facility] [address] [place] [address] documented in this encounter Visit Diagnoses Diagnosis Other and unspecified angina pectoris documented in this encounter Care Teams Activities Specialist Relationship Specialty Start Date End Date Marguerite Fernández DO [address] [place] [phone] PCP - General Family Practice 12/29/18 documented as of this encounter
--- OUTSIDE RECORDS SUMMARY | 2024-12-31 23:02 | XMS_ITS | Encounter Summary ---
Author Organization [facility] Address [address] [place] [address] Care Team Providers Care Merchandise Support Associate Name Role Phone Marguerite Fernández DO Primary Care Provider Encounter Details Date Type Department Care Team (Late st Contact Info) Description 10/13/2008 Ancillary Orders [facility] 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
--- OUTSIDE RECORDS SUMMARY | 2024-12-31 23:02 | XMS_ITS | Encounter Summary ---
Author Organization [facility] Address [address] [place] [address] Care Team Providers Care Mineral Wool Insulation Supervisor Name Role Phone Marguerite Fernández Primary Care Provider [phone] Reason for Referral * Outpatient Services (Routine) - Closed Specialty Diagnoses / Procedures Referred By Julia fraser Referred To Contact Diagnoses Other screening mammogram Hx of breast cancer Procedures MAMMO DIGITAL SCREEN BILAT Komal Mccall APN [address] [address] Phone: tel: fax: [facility] Pre-Registration [place] CALL TO MAKE APPOINTMENT ONLY [address] [place] [address] Phone: tel: fax: Referral ID Status Reason Start Date Expiration Date V isits Requested Visits Authorized [id number] Closed F [facility] TO SCHEDULE ([facility]) 01/24/2013 02/24/2014 1 1 SPACE MANAGER Encounter Details Date Type Department Care Team (Latest Contact Info) Description 01/24/2013 Ancillary Orders [facility] Pre-Registration [place] CALL TO MAKE APPOINTMENT ONLY [address] [place] [address] Komal Mccall APN 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 LAURAC/nyasia - uploaded from [employer] - docTrackr 11/01/2013 8:31 AM CDT BILATERAL SCREENING MAMMOGRAM PATIENT COMPLAINT: No complaint. Prior right lumpectomy 2008. FAMILY HISTORY: Breast cancer in mother and sister. TISSUE DENSITY: There are scattered fibroglandular elements. COMPARISON EXAM(S): 10/27/2011, 10/22/2009 and 08/13/2007 IMAGES OBTAINED: Standard 4-view mammogram FINDINGS: RIGHT BREAST: Stable post lumpectomy changes. No suspicious finding. No significant interval change. LEFT BREAST: Subtly developing punctate and indistinct calcifications are present in the middle depth superiorly and deep to the nipple. Ill-defined nodular asymmetry is present in the posterior depth deep to the nipple on MLO projection. In the lateral mid to posterior depth, small ill-defined irregular asymmetry is present. Just immediately anterior to this asymmetry is an ill-defined asymmetry which has been present to some degree since 2007, which appears more prominent on present study. This digital mammogram was also analyzed by the Computer Aided Detection System (CAD), [email or web address] ImageChecker, Version 8.3. Procedure Note Dariusz Quesada MD - 11/01/2013 BILATERAL SCREENING MAMMOGRAM PATIENT COMPLAINT: No complaint. Prior right lumpectomy 2008. FAMILY HISTORY: Breast cancer in mother and sister. TISSUE DENSITY: There are scattered fibroglandular elements. COMPARISON EXAM(S): 10/27/2011, 10/22/2009 and 08/13/2007 IMAGES OBTAINED: Standard 4-view mammogram FINDINGS: RIGHT BREAST: Stable post lumpectomy changes. No suspicious finding. No significant interval change. LEFT BREAST: Subtly developing punctate and indistinct calcifications are present in the middle depth superiorly and deep to the nipple. Ill-defined nodular asymmetry is present in the posterior depth deep to the nipple on MLO projection. In the lateral mid to posterior depth, small ill-defined irregular asymmetry is present. Just immediately anterior to this asymmetry is an ill-defined asymmetry which has been present to some degree since 2007, which appears more prominent on present study. This digital mammogram was also analyzed by the Computer Aided Detection System (CAD), R2 ImageChecker, Version 8.3. IMPRESSION IMPRESSION: Patient needs to return for further evaluation of left breast findings. JPC/nyasia - uploaded from [employer] - Komal Mccall COOL ROOFING INSTALLER MAMMO ORDERABLES Final Result documented in this encounter Visit Diagnoses Diagnosis Other screening mammogram- Primary Hx of breast cancer Personal history of malignant neoplasm of breast Other screening mammogram Hx of breast cancer Personal history of malignant neoplasm of breast documented in this encounter Care Teams Mineral Wool Insulation Supervisor Relationship Specialty Start Date End Date Marguerite Fernández DO [address] [place] [phone] PCP - General Family Practice 12/29/18 documented as of this encounter
--- OUTSIDE RECORDS SUMMARY | 2024-12-31 23:02 | XMS_ITS | Encounter Summary ---
Author Organization [facility] Address [address] [place] [address] Care Team Providers Care Cat Wagon Operator Name Role Phone Marguerite Fernández DO Primary Care Provider Encounter Details Date Type Department Care Team (Late st Contact Info) Description 12/29/2024 External Device Data [facility] Medicine [place] [address] [place] [phone] Alena Sommer MD [address] [place] [address] Social History Tobacco Use Types Packs/Day Years [...] asked 07/21/2019 How often do you attend christianity or mu-ism serv ices? Not asked 07/21/2019 Do you belong to any clubs o r organizations such as christianity groups, unions, fraternal or athletic groups, or [...] worry about transportation for future doctor visits, medicinal plant picker medication, etc.? No 2024 Housing Stability Answer [...] on file Legal Sex Female 4:36 AM CHEF TEACHER Gender Identity Not on file Sexual Orientation Not on file documented as of this encounter Plan of Treatment Upcoming Encounters Date Type Department Care Team (Late st Contact Info) Description 01/05/2025 9:40 AM CDT Office Visit [facility] Family Medicine [place] [address] [place] [address] Marguerite Fernández, [address] [place] [address] 01/16/2025 10:45 AM CDT Office Visit [facility] Endocrin[facility] [address] [facility] [address] [place] [address] Alfredito Roth PA [address] [place] [address] 01/16/2025 11:00 AM CDT Appointment [facility] Dexa Scan Services Rodrigues Neto Reyesaway [address] [facility] [address] [place] [address] Temi Bunch MD [address] [facility] [address] [place] [address] 02/15/2025 1:25 PM CHEF TEACHER Appointment [facility] Iliana Maldonado Laboratory Services [address] [facility] [address] [place] [address] 02/21/2025 11:30 AM CHEF TEACHER Office Visit [facility] Cancer and Hematology [place] [address] [facility] [address] [place] [address] Marisol Samuel FNP [address] [place] [phone] documented as of this encounter Visit Diagnoses Not on filedocumented in this encounter Additional Health Concerns Assessment Noted Time PHQ-9 Depression Total Score: 4 06/26/19 25 3:07 PM CDT documented as of this encounter Care Teams Cat Wagon Operator Relationship Specialty Start Date End Date Marguerite Fernández DO [address] [place] [phone] PCP - General Family Practice 12/29/18 documented as of this encounter
--- OUTSIDE RECORDS SUMMARY | 2024-12-31 23:02 | XMS_ITS | Encounter Summary ---
Author Organization [facility] Address [address] [place] [address] Care Team Providers Care Service Tester Name Role Phone Marguerite Fernández DO Primary Care Provider Encounter Details Date Type Department Care Team (Latest Contact Info) Description 08/01/2005 Outpatient Historical [facility] Breast [place] Ravi Duque Thomas [address] 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
--- OUTSIDE RECORDS SUMMARY | 2024-12-31 23:02 | XMS_ITS | Encounter Summary ---
Author Organization [facility] Address [address] [place] [address] Care Team Providers Care Paintings Restorer Name Role Phone Marguerite Fernández Primary Care Provider Reason for Referral * Radiology Services (Routine) - Closed Specialty Diagnoses / Procedures Referred By Albertac t Referred To Contact Radiology Diagnoses Chronic kidney disease, unspecified Procedures US RENAL Myles Braxton MD [facility] Ultrasound [address] [place] [address] Phone: tel: fax: Referral ID Status Reason Start Date Expiration Date V isits Requested Visits Authorized [id number] Closed [facility] TO SCHEDULE ([facility]) 01/17/2019 02/17/2020 1 1 Encounter Details Date Type Department Care Team (Latest Contact Info) Description 01/17/[address] 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 Exam: US RENAL Date/Time of Exam: 03/25/2019 10:43 AM Reason For Exam: See Diagnosis. Diagnosis: Chronic kidney disease, unspecified. Findings: Comparison dated 02/13/2019. The right kidney measures 11.7 cm in length. The renal cortex is of increased echogenicity. The renal pyramids appear prominent. There appear to be scattered tiny calcifications within the renal cortex. These may be a vascular etiology. There is a tiny exophytic hypoechoic structure in the upper pole of the right kidney measuring 10 mm x 10 mm x 10 mm in diameter. There is a cyst in the lower pole measuring 16 mm and on millimeters to 13 mm in diameter. There is an echogenic focus dependently within this cyst. There is no hydronephrosis. There is mild prominence of the right renal pelvis. The left kidney measures 11.0 cm in length. There is mild left pelvocaliectasis. There are no intrarenal calculi or masses. IMPRESSION: 1. There are 2 probable small cortical cyst within the right kidney. 2. Renal cortical echo echogenicity bilaterally is increased as could be seen with chronic medical renal disease. Narrative Procedure Note Taisha Read MD - 03/25/2019 IMPRESSION: Please see below. Exam: US RENAL Date/Time of Exam: 03/25/2019 10:43 AM Reason For Exam: See Diagnosis. Diagnosis: Chronic kidney disease, unspecified. Findings: Comparison dated 02/13/2019. The right kidney measures 11.7 cm in length. The renal cortex is of increased echogenicity. The renal pyramids appear prominent. There appear to be scattered tiny calcifications within the renal cortex. These may be a vascular etiology. There is a tiny exophytic hypoechoic structure in the upper pole of the right kidney measuring 10 mm x 10 mm x 10 mm in diameter. There is a cyst in the lower pole measuring 16 mm and on millimeters to 13 mm in diameter. There is an echogenic focus dependently within this cyst. There is no hydronephrosis. There is mild prominence of the right renal pelvis. The left kidney measures 11.0 cm in length. There is mild left pelvocaliectasis. There are no intrarenal calculi or masses. IMPRESSION: 1. There are 2 probable small cortical cyst within the right kidney. 2. Renal cortical echo echogenicity bilaterally is increased as could be seen with chronic medical renal disease. us Myles Braxton MD US ORDERABLES Final Result documented in this encounter Visit Diagnoses Diagnosis Chronic kidney disease, unspecified Chronic kidney disease, unspecified documented in this encounter Care Teams Paintings Restorer Relationship Specialty Start Date End Date Marguerite Fernández DO [address] [place] [address] PCP - General Family Practice 12/29/18 documented as of this encounter
--- OUTSIDE RECORDS SUMMARY | 2024-12-31 23:02 | XMS_ITS | Encounter Summary ---
Author Organization [facility] Address [address] [place] [address] Care Team Providers Care Electronic Equipment Set Up Operator Name Role Phone Marguerite Fernández DO Primary Care Provider Encounter Details Date Type Department Care Team (Late st Contact Info) Description 04/23/2009 Ancillary Orders [facility] Gen Spec [facility] [address] [place] 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 As per Dr. Dyer's protocol, a bilateral exam was done. She also had radiation therapy and is currently on Tamoxifen. Bilateral craniocaudal and oblique views were obtained and supplemented with a right magnification view. The lumpectomy scar is marked with a scar marker. There are surgical clips in the upper outer quadrant from the prior surgery. There is average breast parenchymal density. Comparison is made with prior exams of 10/16/2008, 10/06/2008, 09/27/2008, 09/06/2008, 08/13/2007, and 08/01/2005. No change is seen on the left. No suspicious findings are seen on either side. No dominant masses or suspicious calcifications are seen. On the right, there is mild increased density and distortion at the lumpectomy site. As noted above, this is the first post-lumpectomy mammogram. There are a few benign-appearing vascular-type calcifications anteriorly on the right which are stable. Other than postoperative change, there is no other change seen on the right. CONCLUSION: No significant change is seen. This is the first post-lumpectomy mammogram on the right. As per the lumpectomy protocol, I would recommend follow-up right digital diagnostic mammogram in six months' time. This digital mammogram was also analyzed by the Computer Aided Detection System (CAD), [employer] Image[employer], Version 8.3. The patient was given a result/recommendation letter. Procedure Note Yessenia Lane MD - 04/27/2009 BILATERAL DIGITAL DIAGNOSTIC MAMMOGRAM - 04/23/2009 HISTORY: The patient is 59 years of age and had a malignant lumpectomy onthe right in September 2008, and this is her first follow-up exam. As per 's protocol, a bilateral exam was done. She also had radiationtherapy and is currently on Tamoxifen. Bilateral craniocaudal and oblique views were obtained and supplementedwith a right magnification view. The lumpectomy scar is marked with ascar marker. There are surgical clips in the upper outer quadrant fromthe prior surgery. There is average breast parenchymal density.Comparison is made with prior exams of 10/16/2008, 10/06/2008, 09/27/2008,09/06/2008, 08/13/2007, and 08/01/2005. No change is seen on the left. Nosuspicious findings are seen on either side. No dominant masses orsuspicious calcifications are seen. On the right, there is mild increaseddensity and distortion at the lumpectomy site. As noted above, this isthe first post-lumpectomy mammogram. There are a few dwdicl-unrueturcamwfsfws-sdud calcifications anteriorly on the right which are stable.Other than postoperative change, there is no other change seen on theright. CONCLUSION: No significant change is seen. This is the first post-lumpectomymammogram on the right. As per the lumpectomy protocol, I would recommendfollow-up right digital diagnostic mammogram in six months' time. This digital mammogram was also analyzed by the Computer Aided DetectionSystem (CAD), [employer] Image[employer]er, Version 8.3. The patient was given a result/recommendation letter. us Andrew Dyer MD MAMMO ORDERABLES Final Result documented in this encounter Visit Diagnoses Diagnosis Abnormal mammogram, unspecified Abnormal mammogram, unspecified documented in this encounter Care Teams Electronic Equipment Set Up Operator Relationship Specialty Start Date End Date Marguerite Fernández DO [address] [place] [address] PCP - General Family Practice 12/29/18 documented as of this encounter
--- OUTSIDE RECORDS SUMMARY | 2024-12-31 23:02 | XMS_ITS | Encounter Summary ---
Author Organization [facility] Address [address] [place] [address] Care Team Providers Care Director Advanced Name Role Phone Marguerite Fernández DO Primary Care Provider Encounter Details Date Type Department Care Team (Late st Contact Info) Description 11/13/2010 Ancillary Orders [facility] Pre-Registration [place] CALL TO MAKE APPOINTMENT ONLY [address] [place] [address] Jerrod Monterroso, Dereck Hirsch MD [address] [place] [address] Liver function test abnormality Social History Tobacco Use Types Packs/Day Years Used Date Smoking Tobacco: Former Cigarettes 0 10/14/1979 - 10/13/1981 Smokeless Tobacco: Never Alcohol Use Standard Drinks/Week Comments No 0 (1 standard drink = 0.6 oz pur e alcohol) Comments No Sex and Gender Information Value Date Recorded Sex Assigned at Not on file 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 Lack of intravenous contrast somewhat limits evaluation but lack of change would tend to argue against a malignant process. No change in right adrenal lesion which is likely adenoma. Again lack of change would tend argue for benign lesion. If further workup of either of these lesions is required MRI may be helpful for further characterization. 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 [email or web address] 1608 PM - uploaded from [employer]- [facility] 11/14/2010 6:39 AM CDT Exam: CT ABDOMEN WO CONTRAST Date/Time of Exam: Nov 13, 2010 04:00:00 PM Reason For Exam: LIVER FUNCTION TEST ABNORMALITY. Technique: CT of the abdomen was performed without the administration of intravenous contrast. Axial sections were obtained through the abdomen with oral contrast only. Intravenous contrast was not utilized. Comparison study is a CT abdomen with contrast from 07/15/2010. Findings: As on prior exam a lobular mass is identified coming off of the medial and posterior aspect of the left lobe of the liver (series #2, slice #23). Lack of intravenous contrast makes evaluation somewhat limited but the exophytic component appears to be similar in size and appearance to the prior exam. No definite change is seen. Other aspects of the liver appear intact. Spleen shows some granulomas similar to prior exam. Calcified gallstone is seen without other signs for cholecystitis. Pancreas and kidneys unchanged. Renal calculi are seen bilaterally which are nonobstructing. The right adrenal gland shows an approximately 1.5 x 2.1 cm nodule (series #2, slice #27) which is also unchanged from the prior exam. Procedure Note Fercho Veliz MD - 11/14/2010 Exam: CT ABDOMEN WO CONTRAST Date/Time of Exam: Nov 13, 2010 04:00:00 PM Reason For Exam: LIVER FUNCTION TEST ABNORMALITY. Technique: CT of the abdomen was performed without the administration of intravenous contrast. Axial sections were obtained through the abdomen with oral contrast only. Intravenous contrast was not utilized. Comparison study is a CT abdomen with contrast from 07/15/2010. Findings: As on prior exam a lobular mass is identified coming off of the medial and posterior aspect of the left lobe of the liver (series #2, slice #23). Lack of intravenous contrast makes evaluation somewhat limited but the exophytic component appears to be similar in size and appearance to the prior exam. No definite change is seen. Other aspects of the liver appear intact. Spleen shows some granulomas similar to prior exam. Calcified gallstone is seen without other signs for cholecystitis. Pancreas and kidneys unchanged. Renal calculi are seen bilaterally which are nonobstructing. The right adrenal gland shows an approximately 1.5 x 2.1 cm nodule (series #2, slice #27) which is also unchanged from the prior exam. IMPRESSION Impression: No change in visualized portions of the lobular exophytic mass coming off the posterior aspect of the left lobe of the liver. Lack of intravenous contrast somewhat limits evaluation but lack of change would tend to argue against a malignant process. No change in right adrenal lesion which is likely adenoma. Again lack of change would tend argue for benign lesion. If further workup of either of these lesions is required MRI may be helpful for further characterization. 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 [email or web address] 1608 PM - uploaded from [employer]- us Dereck Elder Jr., MD CT ORDERABLES Final R esult documented in this encounter Visit Diagnoses Diagnosis Liver function test abnormality Other abnormal blood chemistry Liver function test abnormality Other abnormal blood chemistry documented in this encounter Care Teams Director Advanced Relationship Specialty Start Date End Date Marguerite Fernández DO [address] [place] [address] PCP - General Family Practice 12/29/18 documented as of this encounter
--- OUTSIDE RECORDS SUMMARY | 2024-12-31 23:02 | XMS_ITS ---
Author Organization [facility] de Address [address] [place] [address] Phone Care Team Providers Care Health Record Technician Name Role Phone Marguerite Fernández Primary Care Provider Active Problems Problem Noted Date Diagnosed Date [...] 02/05/2016 Postsurgical hypothyroidism 08/10/2009 Essential hypertension 08/10/2009 [facility] current use of aromatase inhibitor Current Treatment and Therapy Plans CONVERTED OP ONC DENOSUMAB (PROLIA) FOR OSTEOPENIA WITH ANTI-HORMONE THERAPY - EVERY 6 MONTHS* Plan Start Date:03/08/2019 Plan Provider:Temi Bunch MD Linked Problems Cancer of midline of left fe male breast (CMS/HCC)Osteopenia of multiple sitesLong term current use of aromatase inhibitor Treatment Medications No medications scheduled. Past Treatment and Therapy Plans ONCOLOGY THERAPY PLAN Plan Name Start Date Discontinue Date Treatment Medications Discontinue Reason Plan Provider OP ONC ZOLEDRONIC ACID (ZOMETA) 11/04/2017 01/16/2019 No medications scheduled. Other Temi Bunch MD ONCOLOGY TREATMENT Plan Name Start Date Discontinue Date Treatment Medications Discontinue Reason Plan Provider Cycles OP ONC BREAST AC EVERY 21 DAYS X 4 FOLLOWED BY PACLITAXEL WEEKLY X 12 6 01/26/2018 cycloPHOSphamide (CYTOXAN) IVPBDOXOrubicin (ADRIAMYCIN)PACLit mitchell (TAXOL) IVPB Therapy Complete Temi Bunch MD 8 of 8 cycles started Lifetime Dose Tracking * Chemical Lifetime Dose Automatic Entry Manual Entr y doxorubicin 240.273 mg/m2 (540 mg) 240.273 mg/m2 (540 mg) 0 mg/m2 (0 mg) Effective Dose 104.8 mSv 104.8 mSv 0 mSv Total DLP 6,748 DLP 6,748 DLP 0 DLP CTDIvol Max 196.5 mGy 196.5 mGy 0 mGy CTDIvol Min 160.6 mGy 160.6 mGy 0 mGy Treatment Summaries Cancer of midline of left female breast (CMS/HCC)* Breast Cancer Survivorship Care Plan Provided by [facility] on 07/31/16 General Information Patient Name: Natalie Mayo Patient : 1950 Care Team Medical Oncologist: Temi Bunch MD Cancer and Hematology - [place] [address] [facility] [address] [place] [address] Surgeon: Andrew Dyer MD [facility] General and Specialty Surgery - [place] [address] [facility], [address] [place] [address] Plastic Surgeon: Wm Javy Whaley MD [facility] Plastic Surgery, [address] [place], [place] [id number] Radiation Oncologist: Hernesto Duncan MD [address] [place], [place] [id number] Primary Care Physician: Komal Mccall COMMERCIAL REAL ESTATE UNDERWRITER, Nurse Navigator: Kell Garcia RN General Cancer Navigator [address] [place], [place] [phone] Advanced Practitioner: Alena López NP-C Cancer and Hematology [facility] [address] [facility] [place], [place] [id number] Eun Narayan PA-C Radiation Oncology [address] [place] [id number] Other Care Team Providers: Jacquelyn Meredith LCSW-Social Work Radiation Oncology [address] [place], [place] [id number] Patient Care Team: Komal Mccall APN as PCP - General Provider, Abstract Spg (Family Practice) Nadeen Murguia RN (Endocrinology) Alfredito Roth PA (Physician Rotor Blade Installer) Left breast cancer- s/p Lt mastextomy & ALND (01/28/16) - Stage III B Staging form: Breast, AJCC 7th Edition Clinical stage from 12/11/2015: Stage IIA (T1c, N1, M0) - Signed by Andrew Dyer MD on 12/11/2015 Pathologic stage from 01/31/2016: Stage IIIB (T4b(2), N1a, cM0) - Signed by Andrew Dyer MD on02/05/2016 Rt breast Ca - s/p mast (01/28/16) Staging form: Breast, AJCC 7th Edition Clinical stage from 12/11/2015: Stage IA (T1c, N0, M0) - Signed by Andrew Dyer MD on 12/11/2015 Pathologic stage from 01/31/2016: Stage IA (T1c, N0, cM0) - Signed by Andrew Dyer MD on 02/05/2016 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 Date of diagnosis 11/2015. Stage III B, Tumor size 2.5 cm with perineural invasion and dermal lymphatic invasion and focal ulceration. T4b, N1a, M0. 2 of 4 lymph nodes positive. Had extracapsular extension. Had left axillary lymph node involvement with malignancy on ultrasound guided lymph node biopsy. Comprehensive breast cancer gene panel negative. ?? 2. 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 Date of diagnosis 11/2015. Tumor size 1.4 cm, T1c, NX, M0. ER 99%, WA 99%, HER-2 negative, Ki-67 47%. Treatment Plan Info Plan Name OP ONC BREAST AC EVERY 21 DAYS X 4 FOLLOWED BY PACLITAXEL WEEKLY X 12 Plan Provider/Status/Goal Temi Bunch MD Active Curative Plan Start Date/Plan Last Day Date 02/26/2016 (Started) 08/08/2016 (Planned) Plan Weight/Height/BSA Weight type: Documented (effective on 02/26/2016), 111.1 kg (entered on 02/26/2016), 163.8 cm (entered on 02/26/2016), BSA 2.25 m2 Plan is Research? [This plan is not part of a research study] Plan Chemo Medication DOXOrubicin (ADRIAMYCIN) injection 135 mg, 60 mg/m2 = 135 mg, IV, ONE TIME ONLY, 4 of 4 cycles cyclophosphamide (CYTOXAN) 1,350 mg in sodium chloride 0.9% 250 mL IVPB, 600 mg/m2 = 1,350 mg, IV, ONE TIME ONLY, 4 of 4 cycles PACLitaxel (TAXOL) 180 mg in sodium chloride 0.9 % 250 mL IVPB, 80 mg/m2 = 180 mg, IV, ONE TIME ONLY, 4 of 4 cycles Plan Discontinue Date/Reason [Plan is still active] [Plan is still active] Treatment Summary Chemotherapy Adjuvant adriamycin + cytoxan x 4 cycles, followed by TAxol weekly x 12 Dates: 02/25/2016 - 08/08/2016 Endocrine Therapy Arimidex Date: initiated 10/2016 Radiation Type: External Beam Radiation Dates of treatment: ??09/17/2016 through 10/22/2016 Elapsed Days: 35 Area of treatment: ??Left breast Dose per fraction: 200??cGy Fraction number: 25 Total Dose: 5000??cGy Beam Arrangement: Opposed tangential Beam Energy: 10 MV photons ? Dates of treatment: ??10/23/2016 through 10/29/2016 Elapsed Days: 6 Area of treatment: ??Left breast boost Dose per fraction: 200??cGy Fraction number: 5 Total Dose: 1000??cGy Beam Arrangement: enface Beam Energy: 6??MEV electrons ? Dates of treatment: ??09/17/2016 through 10/22/2016 Elapsed Days: 35 Area of treatment: ??Left SCF Dose per fraction: 200??cGy Fraction number: 25 Total Dose: 5000??cGy Beam Arrangement: READ Beam Energy: 18 MV photons ? Cumulative dose: 6000??cGy in 30??fractions Dates: 09/17/16 through 10/29/16 Surgery Right simple mastectomy on 01/28/16 with immediate reconstruction. ?? 3. Left modified radical mastectomy on 01/28/16 with immediate reconstruction. Date: 01/28/2016 Other Right breast DCIS ER positive, WA positive and multifocal lobular carcinoma in situ in 2008, underwent lumpectomy followed by radiation therapy. She did not receive endocrine prophylaxis. She was followed by Dr. Tellez at [place]. Date: [address] CAP 01/04/16 IMPRESSION: ?? CHEST: 1. Mass with central marking clip within the left breast consistent with patient's known breast cancer. ?? 2. No enlarged thoracic lymph nodes. ?? 3. Multiple pulmonary opacities measuring up to 0.3 cm as detailed above. These are nonspecific. Short-term follow-up examination in 3-6 months is recommended to confirm stability. ?? ABDOMEN/PELVIS: 1. No enlarged abdominal or pelvic lymph nodes. ?? 2. Lobular exophytic mass extending from the posterior aspect of the left lobe of the liver. This is unchanged dating back to 2010 and is unlikely to be related to breast cancer. No new or enlarging hepatic lesions are identified. ?? 3. Right adrenal gland adenoma. ?? OSSEOUS: 1. Multiple sclerotic lesions as detailed above. These are nonspecific though likely represent benign enostosis. Attention on followup is needed. NM Bone Scan 01/04/16 IMPRESSION: -Negative examination -No strong evidence for metastatic neoplastic osseous involvement. ??-Arthritic changes are present in the shoulder girdle. ??-Evidence in the thoracolumbar spine of spinous ligament inflammation CT chest 03/28/16 ??IMPRESSION: Stable examination as compared to 01/04/2016 without evidence of new or progressive metastatic disease. Please see above. CT CAP 08/22/16 ??IMPRESSION: No apparent CT demonstration of metastatic disease. Hepatomegaly with fatty infiltration of liver. Stability of exophytic left hepatic mass favors atypical benign lesion. Cholelithiasis. Stable nonspecific small right adrenal nodule. Trace left-sided nephrolithiasis. Clinical Trial No Familial Cancer Risk Assessment Genetic Counseling no Dates: Genetic/Hereditary Risk Factors or Predisposing Conditions: Mother-breast cancer Sister-breast cancer (age 56) Father-colon cancer (age 60s) Dates: Genetic Testing Results: Negative Date: 12/27/2015 Potential late effects of treatment(s): Surgical Treatment: These are some side effects that may be a result of your breast surgery. You may have one or more of these problems or you may not experience any of these problems. Please contact your doctor if you have: ??? A collection of fluid in the area of surgery that does not go away. ??? Scars in the area of surgery or internally that may cause difficulty with movement. ??? Pain in the area of surgery that does not go away after the site is healed. This may last for along period of time. ??? Difficulty in moving your shoulder and/or arm on the side of your surgery. ??? Numbness, tingling, pain or weakness in the arm or hand of the side of your surgery. ??? A clicking sound, accompanied by pain that happens when you raise your arm. ??? Swelling or water retention in the hand, arm or shoulder region on the side of your surgery. Some people may experience swelling in their chest or back. The swelling may come and go or it may notgo away. ??? Numbness at the surgery site. Radiation Treatment: Late side effects generally occur 6 or more months after the completion of radiation therapy. The extent and severity of these side effects vary depending on patient factors and radiation treatment design. The majority of radiation side effects occur within the radiation treatment field. ?? Skin changes ?? Risk of nerve damage ?? Risk of lymphedema ?? Risk of lung tissue changes ?? Risk of cardiac damage (if left sided breast cancer) ?? Risk of secondary cancers Chemotherapy Treatment: The effects are going to depend on the chemotherapy drug received ?? Adriamycin (doxirubicin) ?? Cardiotoxicity ?? CHF ?? Cytoxan (cyclophosphamide) ?? Cardiotoxicity ?? Infertility ?? Secondary malignancies ?? Taxol (paclitaxel) ?? Peripheral neuropathy ?? Hematologic malignancies ?? Herceptin ?? Cardiomyopathy Hormonal Therapy: The effects are going to depend on the drug received: ?? Anastrazole, Letrazole exemestane ?? Osteoporosis ?? Tamoxifen ?? Increased risk of blood clots and endometrial hyperplasia or neoplasm Resources Provided to Patient Referrals Provided: There are no referrals needs at this time Follow-up and Survivorship Care Follow Up Care Recommendation Coordinating Provider Ongoing Therapy Therapy: anastrazole Planned Duration: 10 years Expected Side Effects: hot flashes, vaginal dryness, weight gain and water retention, high cholesterol, osteoporosis Medical Oncologist Medical Oncology history and physical (H&P) examination (see below) Visit your doctor every three to six months for the first three years after the first treatment, every six to 12 months for years four and five, and every year thereafter. Medical Oncologist Radiation Oncology Visit your doctor at three months post radiation then every 6 months for the first two years then annually thereafter Radiation Oncologist Post-treatment mammography (see below) Not recommended due to bilateral mastectomy Medical Oncologist Breast self-examination Perform a chest and underarm self-examination every month. This procedure is not a substitute for a mammogram. patient Pelvic examination Continue to visit a control and recovery combat rescue regularly. If you use tamoxifen, you have a greater risk for developing endometrial cancer (cancer of the lining of the uterus). Women taking tamoxifen should report any vaginal bleeding to their doctor. Medical Oncologist and OB/Folder Inspector Bone Density Baseline prior to Arimidex/Fermara/ or Aromasin on all postmenopausal women and repeated every one to 2 years as directed by physician. DEXA 09/17/16 Low bone density/osteopenia is present in the right proximal femur just below the average of the patient's age-matched control consistent with age-appropriate physiologic demineralization. Medical Oncologist/Primary Care Provider Genetic counseling referral Tell your doctor if there is a history of cancer in your family. The following risk factors may indicate that breast cancer could run in the family: ??? Ashkenazi Lutheran heritage ??? Personal or family history of ovarian cancer ??? Any first-degree relative (mother, sister, daughter) diagnosed with breast cancer before age 50 ??? Two or more first-degree or second-degree relatives (grandparent, aunt, uncle) diagnosed with breast cancer ??? Personal or family history of breast cancer in both breasts ??? History of breast cancer in a male relative Medical Oncologist and Surgeon Non cancer related preventive care Continue your routine visits to your primary care physician for preventative care. Bone health ?? DEXA every 2 years ?? calcium with vitamin D ?? weight bearing exercise ?? See above in bone health Colon ?? screening colonoscopy every 5-10 years ?? stool guiac tests ?? eat fruits and vegetables Cervical cancer screening ?? Pap test as discussed with PCP Heart Health ?? weight management ?? cholesterol management ?? blood sugar control ?? blood pressure control Bilateral Pulmonary Emboli ?? On Xarelto starting 09/2016 Thyroid ?? On levothyroxine ?? Will need regular monitoring as the supraclavicular field was treated with radiation and may affect future thyroid levels Yearly Breast Cancer Follow Up & Management Schedule Visit Frequency for H&P Years 1-2 3 months Visit Frequency for H&P Years 3-5 6 months Visit Frequency for Mammography Call your doctor if you have any of these signs and symptoms: Please call our clinic should you notice that you have: ??? Arm swelling ??? New lumps or masses ??? Chest pain, very swollen legs or feet, shortness of breath, wheezing or cough that doesn't go away, unusual fatigue with exercise ??? deep achy pain in your bones (not your joints) that does not come and go ??? persistent frontal headaches which do not come and go ??? personality changes, falls, confusion ??? ongoing nausea or abdominal pain which cannot be explained by infections or other conditions. *Any new, unusual and/or persistent symptoms should be brought to the attention of your provider. Additional Resources: Patients may have many varied questions and concerns after their cancer treatment ends. A list of local resources is provided below to assist you. [facility] [address] [place] [address] www.DataNitro.Viyet [place] [employer] [facility] [employer] [address] [place] [address] Japanese Cancer Society [address] [place] [address] [address] [place] [address] CancerCare website: www.cancercare.org National Cancer Alum Bridge Breast Cancer Foundation [address] [address] www.bcfo.org INDUSTRIAL MAINTENANCE INSTRUCTOR Cancer [place] (GYNCA) [address] [place] [address] www.gynca.org National Resources-Cancer Cancer Education Academy of Oncology Nurse & Patient Navigators: www.aonnonline.org Obdulio's Janette Bianchi Foundation for Childhood Cancer: www.yueade.org Japanese Cancer Society: www.cancer.org Japanese Society of Clinical Oncology: www.cancer.net Association of Community Cancer Centers: www.accc-cancer.org DXVYCS767: www.dhfetk188.org CancerCare: www.cancercare.org CancerGuide: www.cancerguide.org CancerQuest: www.cancerquest.org Centers for Disease Control and Prevention (CDC): www.cdc.gov The Gathering Place: www.touchedbycancer.org Get Palliative Care: www.getpalliativecare.org Global Resource for Advancing Cancer Education (HAYLEY): www.cancergrace.org The Hope Light Foundation: www.hopelightproject.Hiphunters LIVESTRONG Foundation: www.livestrong.org National Cancer Alum Bridge: www.cancer.gov National Comprehensive Cancer Network (NCCN): www.nccn.org National LGBT Cancer Network: http://cancer-network.org OncoLink: www.oncolink.org Oncology Nursing Society: www.ons.org Patient Power: www.patientpower.info PearlPoint Cancer Support: www.pearlpoint.org smartclip Foundation: www.pinestreetfoundation.org Jul[facility]án [facility] Cancer Foundation: www.blocancer.org [facility]: www.[facility].org Triage Cancer: www.triagecancer.org U.S. National Library of Medicine: www.nlm.nih.gov Financial Assistance Japanese Cancer Society: www.cancer.org Japanese Kidney Fund: www.kidneyfund.org BenefitsCheckUp: www.benefitscheckup.org Bringing Hope Home: www.bringinghealthsouth [facility].org CancerCare: www.cancercare.org/financial Cancer Financial Assistance Coalition: www.cancerfac.org Fuel3D Fund: www.Business Capital.iDubba Foundation: www.MySalescampfoCyberArtsation.org Hope Knob Noster: www.cancer.org/treatment/supportprogramsservices/hopelodge LIVESTRONG Foundation: www.livestrong.org Medicare.gov: www.medicare.gov NeedyMeds: www.needymeds.com Partnership for Prescription Assistance: www.pparx.org Patient Access Network Foundation: www.panfoundation.org Patient Advocate Foundation: www.patientadvocate.org Patient Services, Inc.: www.patientservicesinc.org The Pins for Shana Foundation: www.pinsforpauly.org RxAssist: www.rxassist.org RxHope: www.rxhope.com Social Security Administration: www.ssa.gov Social Security Disability Resource Center: www.Civatech Oncology.Hiphunters State Health Insurance Assistance Programs: www.shiptacenter.org Stupid Cancer: www.stupidcancer.org Japanese Cancer Society Guidelines on Nutrition and Physical Activity For Cancer Prevention 1. Achieve and maintain a healthy weight. ??? Avoid weight gain during cancer treatment, whether you are at a healthy weight or overweight. ??? Weight loss after recovery from treatment may benefit survivors who are overweight or obese. 2. Be physically active. ??? Studies show that exercise is safe during cancer treatment, and can improve many aspects of health, including muscle strength, balance, fatigue, and depression. ??? Physical activity after diagnosis is linked to living longer and a reduced risk of the cancer returning among people living with cancer, including breast, colorectal, prostate, and ovarian cancer. ??? Aim for 30 min of exercise 5 days a week. 3. Eat a healthy diet, with an emphasis on fruits, vegetables, and whole grains. ??? The most health benefits are associated with a diet high in fruits, vegetables, whole grains, poultry, and fish, and low in refined grains, red meat and processed meat (such as hot dogs), desserts, high-fat dairy products and Paraguayan fries. Most of the studies about cancer and diet have focused on breast cancer. ??? Studies show that taking vitamins, herbs and other nutritional supplements often does not help cancer patients live longer, and may even shorten life. Before taking any supplement, discuss it with your health care provider. 4. Don't smoke 5. If you drink alcohol, limit your intake. ??? Drink no more than 1 drink per day for women or 2 per day for men. 6. Sunscreen use ??? Exposure to ultraviolet rays is the leading cause of skin cancer. It is important to protect your skin. Sun damage builds up over time. It is important to use sunscreen every day. You should use a sunscreen that is water resistant and has an SPF of 30 or above. Remember to also protect your lips and eyes. 7. Routine blood pressure, cholesterol, and glucose monitoring. ??? While many cancer survivors worry about their cancer coming back most cancer survivors are morelikely to develop other chronic medical conditions such as high blood pressure, heart disease, and diabetes. Be sure to start and/or continue to see your primary care physician regularly. 8. Vaccines ??? The flu is a respiratory infection caused by viruses. While most people with the flu get betteron their own it can be serious. It can cause many medical complications and sometimes even . Be sure to get an annual influenza vaccine (flu shot). ??? Pneumococcal diseases can cause serious infections in the lungs and bloodstream. A pneumococcalvaccine is recommended for all adults 65 years of age and older. It is also recommended for some younger adults who have chronic health conditions. Be sure and check with your doctor if you need a pneumococcal vaccine. 9. Routine Dental Care ??? Your oral health may be more important than you think. It can contribute to various medical diseases and conditions. Daily oral hygiene helps decrease our risk of tooth decay and gum disease. Be sure to brush twice a day, floss daily, and see your dentist regularly for checkups and cleanings. 10. Eye Health ??? Our eyes are called the windows to the world. Make sure you take good care of your eyes. Adultsshould have their eyes examined every 2 years until age 60. We should then undergo eye exams yearly. Individuals with contact lenses, glasses, or who are at high risk for eye problems (i.e. diabetes,family history of eye disease) should be seen more frequently. Breast Cancer Follow Up Sheet Date of Surgery (DOS) 01/28/2016 Estimated Target Dates Dates Completed DOS plus Actual Dates Mammogram1 (Date/Value) Follow Up Visit2 + 0 yrs / 3 mo + 0 yrs / 6 mo + 0 yrs / 9 mo + 1 yrs / 0 mo + 1 yrs / 3 mo + 1 yrs / 6 mo + 1 yrs / 9 mo + 2 yrs / 0 mo + 2 yrs / 3 mo + 2 yrs / 6 mo + 2 yrs / 9 mo + 3 yrs / 0 mo + 3 yrs / 6 mo + 4 yrs / 0 mo + 4 yrs / 6 mo + 5 yrs / 0 mo Comments / Evidence of Recurrence: CHEMO BRAIN What is chemo brain? Chemo brain is a problem with thinking and memory that can happen during and especially after chemotherapy treatment for cancer. It can make it hard for you to think, concentrate, and do tasks. You may have trouble remembering things. And you may feel like your brain isn't working right. It can be frightening to have this happen, especially during an already stressful time. These problems can be mild. But they can be so serious that people have a hard time working or doing their daily activities. What causes chemo brain? These thinking and memory problems may be caused by chemotherapy medicines used to treat cancer. They could occur because of the cancer itself and maybe because of other medicines used to treat cancer. The anxiety and stress of having cancer also may make it harder to think and remember. What are the symptoms? Symptoms vary depending on the person. But you may: Forget events, names, or other things. Have trouble thinking of certain words when you talk. Have trouble learning new things. Take longer to do routine tasks. Have trouble concentrating or feel like your mind is in a fog. How is chemo brain treated? Chemo brain may go away when treatment ends. If you are still having chemotherapy, your doctor may try a different type of chemo to see if that stops these problems or causes fewer problems. If your symptoms are mild, they may go away without treatment. If your symptoms are very bad, your doctor may suggest that you see a specialist who is an expert in thinking and memory problems. What can you do to cope? Take care of yourself Try to relax to reduce your stress. Meditate, or do yoga or another relaxing activity. Try to be patient with yourself. The problem may go away with time. Get plenty of sleep. Eat a healthy diet. Be as physically active as you can. But check with your doctor to make sure that you don't do too much too soon. Keep your brain active by reading and doing puzzles, games, or crosswords. Use memory aids Use sticky notes and calendars to help you remember events and tasks. Carry a notebook to write down important dates, to-do lists, and names of people. Try to have a routine for daily tasks so you get used to doing the same things in the same order every day. Bring a family member or friend to doctor visits. Or use your phone or another device to record your talk with your doctor. Keep a diary or journal. Write down when your mind feels the most clear and when you have trouble. Note how much sleep you had, if you were stressed, or other things that happened. Seek support Tell your family and close friends about the problem so they know what's going on if you forget words or seem foggy. Suggest ways they can help you. See an touch up worker if you are having trouble coping with memory problems. Think about joining a support group for people in cancer treatment. They may have the same problems. You can share ideas. FATIGUE Fatigue is the most common side effect of cancer treatment, occurring in over 90% of patients. It can be overwhelming; it is not always relieved with rest and does not always go away immediately whentreatment ends. Fatigue may result from cancer treatment or the disease itself. Poor sleep, pain, pain medications, stress, poor diet or anemia may also lead to fatigue. These symptoms are often present with fatigue: ??? General weakness ??? Diminished concentration or attention ??? Increased memory problems ??? Difficulty completing daily tasks ??? Insomnia or unrefreshing sleep You need to remember these facts: ??? Feeling tired is normal during this time. ??? Fatigue does not mean the cancer is advancing. ??? Fatigue does not mean the treatment is not working. ??? Fatigue is not caused by lack of willpower. You need treatment and support for the fatigue. How to Manage Fatigue: ??? Exercise - the only proven fatigue-relief strategy. Walking and other forms of exercise can help your fatigue. Start your exercise at a comfortable level. Ask your doctor about what level of exercise is right for you. [facility] offers exerciseprograms; nutritional counseling and support groups that can help manage and alleviate cancer-related fatigue. For more information call [phone]. ??? Energy Conservation and Stress Management ??? Set priorities for what you must do each day. Plan activities during times of peak energy. ??? Take short naps as needed, but do not sleep so much during the day that it interferes with sleeping at night. Go to bed and get up at a consistent time each day. ??? [facility] can assist with support groups and financial counselors. For more information call [phone]. ??? Find Internet blogs for cancer patients offered by the [employer], and other agencies. Hot Flashes Your Care Instructions A hot flash is a sudden feeling of intense body heat. Your head, neck, and chest may get red. Your heartbeat may speed up, and you may feel anxious or irritable. You may find that hot flashes occur more often in warm rooms or during stressful times. Hot flashes and other symptoms are a normal response to the hormone changes that occur as a result of hormonal changes in your body. Hot flashes often get better and go away with time. Making a few changes, such as exercising more, practicing meditation, quitting smoking, avoiding caffiene and drinking less alcohol, can help. Follow-up care is a angelo part of your treatment and safety. Be sure to make and go to all appointments, and call your doctor if you are having problems. It???s also a good idea to know your test results and keep a list of the medicines you take. How can you care for yourself at home? If you decide to take medicine to treat hot flashes, take it exactly as prescribed. Call your doctor if you think you are having a problem with your medicine. You will get more details on the specific medicine your doctor prescribes. Learn to meditate. Sit quietly and focus on your breathing. Try to practice each day. Books, classes, and tapes can help you start a program. Wear natural fabrics, such as cotton and silk. Dress in layers so you can take off clothes as needed. Keep the room temperature cool or use a fan. You are more likely to have a hot flash when you are too warm than when you are cool. Use fewer blankets when you sleep at night. Drink cold fluids rather than hot ones. Limit your intake of caffeine and alcohol. Eat smaller meals more often during the day so your body makes less heat than when digesting large amounts of food. Eat low-fat and high-fiber foods. Do not smoke. Smoking can make hot flashes worse. If you need help quitting, talk to your doctor about stop-smoking programs and medicines. These can increase your chances of quitting for good. Get at least 30 minutes of exercise on most days of the week. Walking is a good choice. You also may want to do other activities, such as running, swimming, cycling, or playing tennis or team sports. When should you call for help? Watch closely for changes in your health, and be sure to contact your doctor if: Your hot flashes disrupt your activities or sleep. Your symptoms bother you, and they are not getting better. LYMPHEDEMA PREVENTION Preventing Lymphedema After Treatment for Breast Cancer: Care Instructions Your Care Instructions Lymphedema is a buildup of fluid in the soft tissues of the body. It can happen in the arm after breast cancer surgery to remove lymph nodes. If there are few or no lymph nodes, fluid can build up inthe arm. It can also happen if the lymph system in an arm has been damaged. Infection, tumors, and scar tissue from radiation therapy to the armpit area also can cause fluid to build up. You may be able to avoid lymphedema or keep it under control by following the tips below. Make surethat you take good care of the skin on your arm and hand. Your skin acts as a barrier to keep out bacteria and prevent infection. It is also important not to overuse the muscles in the arm. And don'texpose your arm to very hot or cold temperatures. Lymphedema can happen soon after breast cancer treatment. Or it may happen many years later. It mayaffect only part of your arm or hand. In some cases, it affects all of the arm. Make sure to followthese precautions even after you finish treatment. Do not ignore tightness or swelling in or aroundyour arm or hand. You are less likely to have long-term problems if you get these symptoms treated right away. Follow-up care is a angelo part of your treatment and safety. Be sure to make and go to all appointments, and call your doctor if you are having problems. It's also a good idea to know your test resultsand keep a list of the medicines you take. How can you care for yourself at home? Skin care ?? Keep your arm, hand, and armpit clean. Use a mild soap that does not dry out your skin. ?? Moisturize your skin often. ?? Take good care of the skin around your fingernails. Do not bite or cut your cuticles. ?? Ask your doctor how to handle any cuts, scratches, insect bites, or other injuries you may get. ?? Use sunscreen and insect repellent outdoors to protect your skin from sunburn and insect bites. ?? Use an electric razor to shave your armpit. It's less likely to cut or irritate your skin. Activity ?? Don't wear clothing or jewelry that is tight on your arm or hand. Your doctor may advise you notto wear a watch or rings on the affected hand. ?? Wear gloves when you do activities that could hurt the skin on your fingers or hand. Wear them when you garden, do yard work, wash dishes, and clean with chemicals. Use oven mitts when you handle hot food. ?? Do not have blood drawn from the arm on the side of the lymph node surgery. Do not get injections (shots) or have an IV put in the affected arm. ?? Do not allow a blood pressure cuff to be placed on that arm. If you are in the hospital, make sure you tell your nurse and other hospital staff about your condition. ?? Do not expose your arm to very hot or very cold temperatures. For example, do not use hot tubs, saunas, or steam rooms. Do not use a heating pad or cold pack on that arm or shoulder. ?? Rest your arm often when you do repeated movements, such as vacuum, scrub, or mop. ?? Try to use your other arm to carry heavy things, such as grocery bags. Avoid shoulder straps when you carry a briefcase or purse. Carry your purse on your good arm. ?? Ask your doctor about wearing a compression sleeve and glove (gauntlet). Your doctor may want you to wear these when you exercise or when you fly in an airplane. They can help keep fluid from pooling in your arm and hand. Exercise ?? Ask your doctor about exercises for your arm and hand. Your doctor may recommend that you see a physical therapist. This person can teach you how to do self-massage to move fluid out of your arm. ?? Check with your doctor before you start exercises that use the arm. This includes tennis, rowing, or weight lifting. Your doctor can help you find an activity level that is right for you. When should you call for help? Call your doctor now or seek immediate medical care if: ?? You have signs of infection, such as: ?? Increased pain, swelling, warmth, or redness in your arm or hand. ?? Red streaks leading from the area of lymph node surgery or radiation. ?? Pus draining from a cut or scrape in your skin on your arm or hand. ?? A fever. Watch closely for changes in your health, and be sure to contact your doctor if: ?? You have a feeling of tightness or swelling in or around your arm or hand. ?? You have pain, aching, weakness, or a pins and needles feeling in your arm or hand. ?? Your rings, watches, or bracelets feel tight, but you have not gained weight. ?? You notice that one arm looks larger than the other. ?? You cannot bend your fingers, wrist, or elbow as much as usual. Where can you learn more? Go to http://www.[employer].net/patiented. Enter G546 in the search box to learn more about Preventing Lymphedema After Treatment for Breast Cancer: Care Instructions. Current as of: February 03, 2014 Content Version: 107 ?? 1004-0440 [employer]. Care instructions adapted under license by your healthcare professional. If you have questions about a medical condition or this instruction, always ask your healthcare professional. [employer] disclaims any warranty or liability for your use of this information. ? OSTEOPOROSIS and BREAST CANCER Osteoporosis means the bones are weak and thin enough that they can break easily. It also increasesyour risk for spine and hip fractures.The older you are, the more likely you are to get osteoporosis. But with plenty of calcium, vitamin D, and exercise, you can help prevent osteoporosis. Decreased estrogen levels can lead to thinner bones. This can happen because of menopause or because of taking a hormonal therapy after breast cancer treatment. How can you care for yourself at home? Get enough calcium and vitamin D. The [place] [employer] recommends adults younger than age 51 need 1,000 mg of calcium and 600 IU of vitamin D each day. Women ages 51 to 70 need 1,200 mg of calcium and 600 IU of vitamin D each day. Men ages 51 to 70 need 1,000 mg of calcium and 600 IU of vitamin D each day. Adults 71 and older need 1,200 mg of calcium and 800 IU of vitamin D each day. Eat foods rich in calcium, like yogurt, cheese, milk, and dark green vegetables. Eat foods rich in vitamin D, like eggs, fatty fish, cereal, and fortified milk. Get some sunshine. Your body uses sunshine to make its own vitamin D. The safest time to be out in the sun is before 10 a.m. or after 3 p.m. Avoid getting sunburned. Sunburn can increase your risk ofskin cancer. Talk to your doctor about taking a calcium plus vitamin D supplement. Ask about what type of calcium is right for you, and how much to take at a time. Adults ages 19 to 50 should not get more than 2,500 mg of calcium and 4,000 IU of vitamin D each day, whether it is from supplements and/or food. Adults ages 51 and older should not get more than 2,000 mg of calcium and 4,000 IU of vitamin D each day from supplements and/or food. Get regular bone-building exercise. Weight-bearing and resistance exercises keep bones healthy by working the muscles and bones against gravity. Start out at an exercise level that feels right for you. Add a little at a time until you can do the following: Do 30 minutes of weight-bearing exercise on most days of the week. Walking, jogging, stair climbing, and dancing are good choices. Do resistance exercises with weights or elastic bands 2 to 3 days a week. Limit alcohol. Drink no more than 1 alcohol drink a day if you are a woman. Drink no more than 2 alcohol drinks a day if you are a man. Do not smoke. Smoking can make bones thin faster. If you need help quitting, talk to your doctor about stop-smoking programs and medicines. These can increase your chances of quitting for good. How Will You Know If You Have Osteoporosis? We will order a bone density scan (DEXA) when you start on hormonal therapy. This test will be repeated every 2 years. In the meantime, take calcium with vitamin D supplements as noted above, eat foods rich in calcium and vitamin D, get weight bearing exercises 5 days a week and get some sunshine. What Happens if You Are Found to Have Bone Thinning or Osteoporosis? In addition to calcium and vitamin D, we will order a bone strengthening medicine called Prolia or Reclast. These medicines help your bones to become stronger so you are less likelyto have a fracture. Your doctor or nurse practitioner can give you more detailed information about these medicines if they are ordered for you. For more information: Go to http://www.[employer].net/patiented. Enter S618 in the search box to learn more about Preventing Osteoporosis: After Your Visit. Current as of: February 03, 2014 Content Version: 10.5 ?? [id number] [employer]. Care instructions adapted under license by your healthcare professional. If you have questions about a medical condition or this instruction, always ask your healthcare professional. [employer] disclaims any warranty or liability for your use of this information. Sexuality and a history of Breast Cancer Your Care Instructions When you have had cancer, the stress can spill over into all areas of your life. It can even affectyour sex life. You may pull away from those closest to you. Some people avoid sex out of fear that it could make their disease worse. Having had cancer can affect your sex life in many ways. For example: Surgery can damage nerves or blood vessels. This can affect your response to touch. Some medicines can make it harder to get excited. Some diseases or treatments drain your energy. You may not feel like having sex. Depression is common and can make you feel less sexual. Cancer can change the way you feel about your body. You may feel that your body has let you down. And medicines or other treatments can change the way you look, so you may feel less attractive. But having had cancer should not mean the end of sexuality. Sex can help you stay close to your partner and add to your sense of well-being. With patience, planning, and advice, you can have a rewarding sex life. Follow-up care is a angelo part of your treatment and safety. Be sure to make and go to all appointments, and call your doctor if you are having problems. It's also a good idea to know your test resultsand keep a list of the medicines you take. How can you care for yourself at home? Is the problem physical or emotional? Work with your doctor to figure out if your problem is physical or emotional. Your doctor can: Offer suggestions and recommendations Refer you for counseling if needed. Physical problems There are many things you can do if your sexual problems have a physical cause. Use plenty of lubricant during sex. Examples include Astroglide, K-Y Jelly, and Wet Gel Lubricant. Try different positions for sex to find the most comfortable ones. Emotional problems If you are feeling down, try regular exercise. Exercise can help you have more energy, feel stronger, and improve your mood. Choose a type of exercise that you enjoy. You can walk, swim, garden, or dance, for example. Check with your doctor about what type of exercise is best for you. If you have tried to have sex and failed, you may not want to try again. You may have fears about your performance. Or you may worry about your ability to have sex without pain or other symptoms. When you and your partner are ready, try these tips: Choose a time when you are relaxed and a place that will be free from interruptions. Wait 1 to 3 hours after you eat a full meal. Talk honestly to your partner about your concerns and feelings. This can be hard, but communicationis an important part of good sex. Keep an open mind. If intercourse is difficult or painful, try other ways of being close. Try touching, kissing, and hugging. Be patient with yourself. It may take longer to get interested or reach climax. If you still have problems, ask your doctor to suggest a counselor. He or she can help you understand and deal with your feelings. Talk to your doctor Sometimes doctors are so focused on your disease that they forget to ask about important aspects ofyour life, like sex. You may have to bring up the subject yourself. It can be hard to talk about sex, even with the person you are closest to. So it can be even harderto bring it up with your doctor. To be successful, try these tips: If you think you will have trouble bringing up sex, practice how you will introduce the subject. You might say something like, I have some concerns about sex, and I would like to talk about them today. Before your appointment, make a list of questions to ask your doctor. This may include questions about your medicines. Be as specific as possible. Tell your doctor what you have tried, what works for you, and what doesnot work. If you have trouble asking the questions directly or feel rushed, give the list to your doctor. Askfor another appointment to discuss them. Ask your partner to go with you. Your partner may be able to give more details that can help your doctor figure out what is wrong. When should you call for help? Watch closely for changes in your health, and be sure to contact your doctor if: You have pain during sex. Vaginal dryness Lubricants Cancer treatments often reduce the amount of lubricant produced in your vagina when you are excited. You may need extra lubrication to make intercourse comfortable. If you use a vaginal lubricant, choose a water-based gel that has no perfumes, coloring, spermicide, or flavors added, as these chemicals can irritate your delicate genital tissues. Lubricants can usually be found near the control or feminine hygiene products in drug stores or grocery stores. Common brands include K-Y Jelly?? and Astroglide?? :, FemGlide, Just Like Me, Pre-Seed, Slippery Stuff, Summer???s Samina, others . Be aware that some of the newer lubricant products include herbal extracts (such as aloe or lavender), which may cause irritation or allergic reactions in some people. Also, warming gels can cause burning in some people. Be sure to read the labels, and talk with a nurse, doctor, or pharmacist if you have questions. Petroleum jelly (Vaseline??), skin lotions, and other oil-based lubricants are not good choices forvaginal lubrication. In some women, they may raise the risk of yeast infection. And if latex condoms are used, they can be damaged by petroleum products and lotions. Also, watch out for condoms or gels that contain nonoxynol-9 (N-9). N-9 is a control agent that kills sperm, but it can irritate the vagina, especially if the tissues are already dry or fragile. Before intercourse, put some lubricant around and inside the entrance of your vagina. Then spread some of it on your partner???s penis, fingers, or other insert. This helps get the lubricant inside your vagina. Many couples treat this as a part of foreplay. If vaginal penetration lasts more than a few minutes, you may need to stop briefly and use more lubricant. Even if you use vaginal moisturizers every few days, it???s best to use gel lubricant before and during sex. Vaginal moisturizers As women age, the vagina can naturally lose moisture and elasticity (the ability to stretch or movecomfortably). Cancer treatments and risk-reducing surgery (such as removing the ovaries) can hastenthese changes. Vaginal moisturizers are non-hormonal products intended to be used several times a week to improve overall vaginal health and comfort. You can buy them without a prescription. Vaginal health is not only important for sexual activity, but also for comfortable gynecologic exams. The dryness can also make it easier for you to get urinary bladder infections. It is important to remember to wipe front to back or separately when using the toilet. Vaginal moisturizers are designed to help keep your vagina moist and at a more normal acid balance (pH) for up to 2 to 3 days. Vaginal moisturizers are applied at bedtime for the best absorption. It should be noted that it???s not uncommon for women who???ve had cancer to need to use moisturizers up to 3 to 5 times per week. Vaginal moisturizers are different than lubricants - they last longer and are not usually used for sexual activity. Replens?? and K-Y Liquibeads?? Fresh Start, K-Y Silk-E, Moist Again, Luvena Hyalo Account Resolution Analyst are examples of vaginal moisturizers. Lubrin?? and Astroglide Silken Secret?? are other moisturizers that are marketed as longer lasting than typical lubricants. Vitamin E gel caps can also be used as a vaginal moisturizer. Use a clean needle to make a small hole in the gel cap and either put the entire capsule into your vagina or squeeze some of the gel onto your fingers and put them into your vagina. Be aware that vitamin E may stain undergarments. WEIGHT MANAGEMENT [facility] Patient Instructions When You Are Overweight: Being overweight can have negative effects on your health overall. For breast cancer patients, being overweight is especially concerning because fat tissue makes estrogen. If you are taking a medication to reduce the amount of estrogen in your body, fat tissue is workingagainst your efforts. Your Care Instructions If you're overweight, your doctor may recommend that you make changes in your eating and exercise habits. Being overweight can lead to serious health problems, such as high blood pressure, heart disease, type 2 diabetes, and arthritis, or it can make these problems worse. Eating a healthy diet and being more active can help you reach and stay at a healthy weight. You don???t have to make huge changes all at once. Start by making small changes in your eating andexercise habits. To lose weight, you need to burn more calories than you take in. You can do this by eating healthy foods in reasonable amounts and becoming more active every day. How can you care for yourself at home? Improve your eating habits. You'll be more successful if you work on changing one eating habit at atime. All foods, if eaten in moderation, can be part of healthy eating. Remember to: Eat a variety of foods from each food group. Include grains, vegetables, fruits, dairy, and proteinfoods. Limit foods high in fat, sugar, and calories. Eat slowly. And don't do anything else, such as watch TV, while you are eating. Pay attention to portion sizes. Put your food on a smaller plate. Plan your meals ahead of time. You'll be less likely to grab something that's not as healthy. Get active. Regular activity can help you feel better, have more energy, and burn more calories. Ifyou haven't been active, start slowly. Start with at least 30 minutes of moderate activity on most days of the week. Then gradually increase the amount of activity. Try for 60 or 90 minutes a day, atleast 5 days a week. There are a lot of ways to fit activity into your life. You can: Walk or bike to the store. Or walk with a friend, or walk the dog. Mow the lawn, rake leaves, shovel snow, or do some gardening. Use the stairs instead of the elevator, at least for a few floors. Change your thinking. Your thoughts have a lot to do with how you feel and what you do. When you'retrying to reach a healthy weight, changing how you think about certain things may help. Here are some ideas: Don't compare yourself to others. Healthy bodies come in all shapes and sizes. Pay attention to how hungry or full you feel. When you eat, be aware of why you're eating and how much you're eating. Focus on improving your health instead of dieting. Dieting almost never works over the penitentiary. Ask your doctor about other health professionals who can help you reach a healthy weight. A dietitian can help you make healthy changes in your diet. An delivery specialist or personal clothing laundry aide can help you develop a safe and effective exercise program. A counselor or psychiatrist can help you cope with issues such as depression, anxiety, or family problems that can make it hard to focus on reaching a healthy weight. Keeping a food diary is a good way to keep track of how much you are eating. A good resource if www.[employer] which is free. Many commercial programs also include this technique. If you choose to enroll, look for a program that teaches lifetime healthy eating habits. Get support from your family, your doctor, your friends, a support group--and support yourself. Where can you learn more? Go to [employer], choose I Want To... and then choose Search Medical Information. Enter L869 in the search box to learn more about When You Are Overweight: After Your Visit. Current as of: June 01, 2013 Content Version: 10. ?? [id number] [employer]. Care instructions adapted under license by [employer]. [employer] disclaims any warranty or liability for your use of this information. This information is not intended to represent the ethical and amish beliefs of [employer]. This care instruction is for use with your licensed healthcare professional. If you have questions about a medical condition or this instruction, always ask your healthcare professional. [employer] disclaims any warranty or liability for your use of this information. Coping with Fear of Recurrence It's normal to worry that your cancer will come back. Almost all cancer survivors have this fear, so you are not alone. It's common for people to feel a lack of control over their lives or have trouble trusting their bodies. Every ache or pain brings up the fear that the cancer is back. Some tips on how to cope with this are: Be informed. Understand what you can do for your health now, and find out about the services available to you. Doing this can give you a greater sense of control. Some studies even suggest that people who are well-informed about their cancer are more likely to recover more quickly than those who are not. Be open and talk to your health care team about your fears. They can assure you that they???re looking out for you and help you feel less worried. Express your feelings of fear, anger, or sadness. People have found that when they express strong feelings like anger or sadness, they're more able to let go of them. Writing your feelings in a journal is a good way to express emotions. Look for the positive. Sometimes this means looking for the good even in a bad time or trying to behopeful instead of thinking the worst. Try to use your energy to focus on wellness and what you mayra now to stay as healthy as possible. Find ways to help yourself relax. Relaxation exercises have been proven to help others and may helpyou relax when you feel worried. Be as active as you can. Getting out of the house can help you focus on other things besides cancerand the worries it brings. Focus on what you can control. Being involved in your health care, keeping your appointments, and making changes in your lifestyle are some of the things you can control. Even setting a daily schedule can help. And while no one can control every thought, some say that they try not to dwell on the fearful ones. For some it can be hard to let go of the fear and lack of trust your body. If your fears of recurrence seem overwhelming, talk to a counselor. He or she may be able to help you reduce your anxiety and calm your fears. Colorectal Cancer Screening Guidelines Regular screening, beginning at age 50, is the angelo to preventing colorectal cancer.1 The U.S. Preventive Services Task Force (USPSTF) recommends screening for colorectal cancer using high-sensitivityfecal occult blood testing, sigmoidoscopy, or colonoscopy beginning at age 50 years and continuing until age 75 years.1 People at higher risk of developing colorectal cancer should begin screening at a younger age, and may need to be tested more frequently. The decision to be screened after age 75 should be made on anindividual basis. If you are older than 75, ask your doctor if you should be screened. For more information, read the current colorectal cancer screening guidelines from the USPSTF. Recommended screening tests and intervals are-- High-sensitivity fecal occult blood test (FOBT), which checks for hidden blood in three consecutivestool samples; should be done every year. Flexible sigmoidoscopy, where physicians use a flexible, lighted tube (sigmoidoscope) to look at the interior light of the rectum and part of the colon; should be done every five years with FOBT every three years. Colonoscopy, where physicians use a flexible, lighted tube (colonoscope) to look at the interior light of the rectum and the entire colon; should be done every 10 years. During this procedure, samples of tissue may be collected for closer examination, or polyps may be removed. Colonoscopies can be used as screening tests or as follow-up diagnostic tools when the results of another screening test are positive. Colonoscopy also is used as a diagnostic test when a person has symptoms, and it can be used as a follow-up test when the results of another colorectal cancer screening test are unclear or abnormal. References 1U.S. Preventive Services Task Force. Screening for Colorectal Cancer: U.S. Preventive Services Task Force Recommendation Statement. AHRQ Publication 91-46355-OM-3, December 2007. Agency for Healthcare Research and Quality, [place]. 2U.S. Preventive Services Task Force. Guide to Clinical Preventive Services, 2008: Recommendations of the U.S. Preventive Services Task Force. [facility] Publication No. 08-37567, November 2007. Agency for Healthcare Research and Quality, [place]. Cervical Cancer Screening ?? Cervical cancer is related to infection with specific high-risk strains of human papillomavirus (HPV). Most risk factors for cervical cancer are related to factors that increase acquisition or decrease clearance of HPV. Cervical cancer screening decreases incidence and mortality of cervical cancer ?? In the [place], we recommend that cervical cancer screening be initiated no earlier than age 21 in immunocompetent, asymptomatic women. In such women, we suggest initiating screening at age 21, regardless of the age of sexual activity. Other countries may initiate screening at different ages (usually between 20 and 25 years) We suggest screening women <30 years with Pap smear rather than HPV (either primary HPV testing or co-testing). We screen women age <30 years with Pap test every 3 years. More frequent screening only marginally increases the detection of cervical cancer but doubles or triples the number ofdownstream interventions. Primary HPV screening may be an effective screening modality in resource-poor areas. We suggest women age > 30 years be screening with either Pap test every 3 years or co-testing(Pap and HPV) every five years if both initial tests are negative. Co-testing may detect cervical abnormalities earlier than Pap test alone, although it also leads to an increased rate of follow-up testing. ?? In general, we suggest women aged 65 or older who had adequate negative prior screening (3 consecutive negative Paps or 2 consecutive negative co-tests in the last 10 years, with the most recent within the past 5 years) NOT undergo screening for cervical cancer. We continue to offer screening towomen with a good life expectancy who have risk factors for cervical cancer (hx of abnormal Pap, current smoker or history of smoking, unknown prior Pap test history, previous HPV-related disease, ornew partners) beyond 65 years (generally until about age 80, but the upper limit of offering screening may vary with risk factors). ?? We generally screen older women who have not be adequately screened with either Pap test ever 2 to 3 years or co-testing every 5 years until the age of 70-75. ?? We recommend that women who have undergone total hysterectomy (uterus and cervix removed) who have no history of cervical cancer or cervical intraepithelial neoplasia (FRANCIS) NOT undergo screening for cervical cancer or screening for vaginal cancer. We suggest vaginal cytology for vaginal cancer sc reening for women with FRANCIS 2, 3 prior to, or diagnosed at the time of total hysterectomy. ?? Most cervical cancer occurs in women who have never been screening or who had only sporadic screening. ?? The effectiveness of screening also hinges on adequate follow-up treatment for abnormal results. 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
--- OUTSIDE RECORDS SUMMARY | 2024-12-31 23:03 | XMS_ITS | Encounter Summary ---
Author Organization [facility] Address [address] [place] [address] Care Team Providers Care Cigarette Carton Sealer Name Role Phone Marguerite Fernández Primary Care Provider [phone] Reason for Referral * Outpatient Services (Routine) - Closed Specialty Diagnoses / Procedures Referred By Julia fraser Referred To Contact Diagnoses Nipple discharge, bloody Procedures MAMMO BREAST US BILAT LTD Komal Mccall APN [address] [address] Phone: tel: fax: Referral ID Status Reason Start Date Expiration Date Visits Re quested Visits Authorized [id number] Closed 11/21/2015 12/21/2016 1 1 Encounter Details Date Type Department Care Team (Latest Contact Info) Description 11/21/2015 Ancillary Orders [facility] Pre-Registration [place] CALL TO MAKE APPOINTMENT ONLY [address] [place] [id number] Komal Mccall APN 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 Gender Identity Not on file Sexual Orientation Not on file Occupation Industry Job Start Date Job End Date Not on file Not on file Not on file Not on file Not on file Not on file Not on file Not on file documented as of this encounter Plan of Treatment Not on file documented as of this encounter Results * (ABNORMAL) MAMMO BREAST US BILAT LTD (11/21/2015 12:27 PM CDT) Anatomical Region Laterality Modality Bilateral Ultrasound 11/21/2015 12:2 7 PM CDT Narrative 11/21/2015 3:07 PM CDT MAMMO DIGITAL DIAG BILAT, MAMMO BREAST US BILAT [employer] INDICATION FOR EXAMINATION: Nipple discharge, bloody COMPARISONS: Mammogram dated 11/15/2014, 05/15/2014, 10/28/2013. BREAST COMPOSITION: Scattered fibroglandular densities. FINDINGS: This digital mammogram was also analyzed by the Computer Aided Detection System (CAD), [employer], Version 8.3. Postsurgical changes are seen to the lateral right breast consistent with prior lumpectomy. Surgical clips are seen in this region. Within the anterior right breast superiorly at approximately 12:00 there is an irregular spiculated mass measuring approximately 1.4 x 1.3 cm that demonstrates surrounding architectural distortion. Within the anterior to mid left breast centrally there is an irregular focal asymmetry versus mass measuring 1.2 x 1.1 cm with surrounding architectural distortion as well as internal pleomorphic calcifications. Biopsy is recommended. Bilateral breast ultrasounds were performed. Static sonographic images of each breast were obtained with Doppler interrogation. Right breast: At 12:00 to 1:00, 5 cm from the nipple there is an irregular hypoechoic mass measuring 0.8 x 0.9 x 1.3 cm that demonstrates indistinct, angular, and spiculated margins. This mass is not parallel in orientation, demonstrates posterior acoustic shadowing and has prominent internal blood flow. This mass correlates with the right breast abnormality and biopsy is recommended. The right axillary lymph nodes demonstrate no focal abnormality. Left breast: There is a heterogeneous complex cystic mass at 11:00 to 12:00, 9 cm from the nipple which measures 1.4 x 0.5 x 1.1 cm. This irregular mass demonstrates mixed posterior acoustic characteristics, and contains no internal vascularity. This abnormality does not definitively correlate with the previous identified mammographic region of interest. Within the left axillary region there is an irregular cortically thickened lymph node. Biopsy is recommended for both of these ultrasound abnormalities. The previously identified central left breast mammographic abnormality containing pleomorphic calcifications does not have a definitive ultrasound correlate. As a result, stereotactic guided biopsy is recommended. On physical exam the left nipple appears indented with crusting and/or scabbing over along the inferior portion. No bloody nipple discharge was expressed. The breast did feel firm in this region. ASSESSMENT: Highly suggestive of malignancy. BI-RADS 5. RECOMMENDATIONS: 1. Ultrasound-guided biopsy of the right breast abnormality. 2. Ultrasound guided biopsy of the left breast abnormalities x2. 3. Stereotactic guided biopsy of the left breast mammographic abnormality. 4. Clinical correlation for left nipple discharge. The patient was given a result/recommendation letter. [id number] Procedure Note Sanjay Oliva MD - 11/21/2015 MAMMO DIGITAL DIAG BILAT, MAMMO BREAST US BILAT LTD INDICATION FOR EXAMINATION: Nipple discharge, bloody COMPARISONS: Mammogram dated 11/15/2014, 05/15/2014, 10/28/2013. BREAST COMPOSITION: Scattered fibroglandular densities. FINDINGS: This digital mammogram was also analyzed by the Computer Aided Detection System (CAD), [employer], Version 8.3. Postsurgical changes are seen to the lateral right breast consistent with prior lumpectomy. Surgical clips are seen in this region. Within the anterior right breast superiorly at approximately 12:00 there is an irregular spiculated mass measuring approximately 1.4 x 1.3 cm that demonstrates surrounding architectural distortion. Within the anterior to mid left breast centrally there is an irregular focal asymmetry versus mass measuring 1.2 x 1.1 cm with surrounding architectural distortion as well as internal pleomorphic calcifications. Biopsy is recommended. Bilateral breast ultrasounds were performed. Static sonographic images of each breast were obtained with Doppler interrogation. Right breast: At 12:00 to 1:00, 5 cm from the nipple there is an irregular hypoechoic mass measuring 0.8 x 0.9 x 1.3 cm that demonstrates indistinct, angular, and spiculated margins. This mass is not parallel in orientation, demonstrates posterior acoustic shadowing and has prominent internal blood flow. This mass correlates with the right breast abnormality and biopsy is recommended. The right axillary lymph nodes demonstrate no focal abnormality. Left breast: There is a heterogeneous complex cystic mass at 11:00 to 12:00, 9 cm from the nipple which measures 1.4 x 0.5 x 1.1 cm. This irregular mass demonstrates mixed posterior acoustic characteristics, and contains no internal vascularity. This abnormality does not definitively correlate with the previous identified mammographic region of interest. Within the left axillary region there is an irregular cortically thickened lymph node. Biopsy is recommended for both of these ultrasound abnormalities. The previously identified central left breast mammographic abnormality containing pleomorphic calcifications does not have a definitive ultrasound correlate. As a result, stereotactic guided biopsy is recommended. On physical exam the left nipple appears indented with crusting and/or scabbing over along the inferior portion. No bloody nipple discharge was expressed. The breast did feel firm in this region. ASSESSMENT: Highly suggestive of malignancy. BI-RADS 5. RECOMMENDATIONS: 1. Ultrasound-guided biopsy of the right breast abnormality. 2. Ultrasound guided biopsy of the left breast abnormalities x2. 3. Stereotactic guided biopsy of the left breast mammographic abnormality. 4. Clinical correlation for left nipple discharge. The patient was given a result/recommendation letter. [id number] [facility]OLDER MAMMO ORDERABLES Final Result documented in this encounter Visit Diagnoses Diagnosis Nipple discharge, bloody- Primary Other sign and symptom in breast Nipple discharge, bloody Other sign and symptom in breast documented in this encounter Care Teams Cigarette Carton Sealer Relationship Specialty Start Date End Date Marguerite Fernández DO [address] [place] [address] PCP - General Family Practice 12/29/18 documented as of this encounter
--- OUTSIDE RECORDS SUMMARY | 2024-12-31 23:03 | XMS_ITS | Encounter Summary ---
Author Organization [facility] Address [address] [place] [address] Care Team Providers Care Flight Operation Coordinator Name Role Phone Marguerite Fernández Primary Care Provider [phone] Reason for Referral * Outpatient Services (Routine) - Closed Specialty Diagnoses / Procedures Referred By Julia fraser Referred To Contact Radiology Diagnoses Abnormal findings on diagnostic imaging of breast Procedures MAMMO POST US/STEREO GUIDED PROCEDURE BILATERAL Komal Mccall APN [address] [address] Phone: tel: fax: [facility] [address] [facility] [address] [place] [address] Phone: tel: fax: Referral ID Status Reason Start Date Expiration Date Visits Requested Visits Authorized [id number] Closed Performing Department To Schedule (SGF) 11/21/2015 12/21/2016 1 1 * Outpatient Services (Routine) - Closed Specialty Diagnoses / Procedures Referred By Julia fraser Referred To Contact Radiology Diagnoses Abnormal findings on diagnostic imaging of breast Procedures MAMMO STEREOTACTIC BREAST BX LT Komal Mccall APN [address] [address] Phone: tel: fax: [place] [phone] [address] Phone: tel: fax: Referral ID Status Reason Start Date Expiration Date Visits Requested Visits Authorized [id number] Closed Performing Department To Schedule (SGF) 11/21/2015 12/21/2016 1 1 * Outpatient Services (Routine) - Closed Specialty Diagnoses / Procedures Referred By Contac t Referred To Contact Radiology Diagnoses Abnormal findings on diagnostic imaging of breast Procedures MAMMO US BIOPSY LYMPH NODE LT Komal Mccall APN [address] [address] Phone: tel: fax: [place] [phone] [address] Phone: tel: fax: Referral ID Status Reason Start Date Expiration Date Visits Requested Visits Authorized [id number] Closed Performing Department To Schedule (SGF) 11/21/2015 12/21/2016 1 1 * Outpatient Services (Routine) - Closed Specialty Diagnoses / Procedures Referred By Contac t Referred To Contact Radiology Diagnoses Abnormal findings on diagnostic imaging of breast Procedures MAMMO BREAST US BIOPSY LEFT Komal Mccall APN [address] [address] Phone: tel: fax: [place] [address] [address] Phone: tel: fax: Referral ID Status Reason Start Date Expiration Date Visits Requested Visits Authorized [id number] Closed Performing Department To Schedule (SGF) 11/21/2015 12/21/2016 1 1 * Outpatient Services (Routine) - Closed Specialty Diagnoses / Procedures Referred By Contmaria elena t Referred To Contact Radiology Diagnoses Abnormal findings on diagnostic imaging of breast Procedures MAMMO BREAST US BIOPSY RIGHT Komal Mccall APN [address] [address] Phone: tel: fax: [facility] [address] [address] Phone: tel: fax: Referral ID Status Reason Start Date Expiration Date Visits Requested Visits Authorized [id number] Closed Performing Department To Schedule (SGF) 11/21/2015 12/21/2016 1 1 Encounter Details Date Type Department Care Team (Late st Contact Info) Description 11/21/2015 Ancillary Orders [facility] [address] [address] Komal Mccall APN 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 We will await pathology results. PATHOLOGY RESULTS WERE REVIEWED 12/07/2015: MALIGNANT The stereotactic biopsy on the left at the 6 o'clock position was reported as malignant, moderately differentiated invasive ductal carcinoma and ductal carcinoma in situ. This can be considered concordant. with the imaging findings. RECOMMENDATION: Surgical consultation for therapeutic planning for the core biopsy-proven moderately differentiated invasive ductal carcinoma by stereotactic biopsy. 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 [id number] Narrative 12/09/2015 3:22 PM CDT STEREOTACTIC BIOPSY-LEFT BREAST: HISTORY: This 65-year-old female had several core biopsies this morning, this one a stereotactic biopsy of a 13 mm area of density and calcifications in the midportion of the left breast slightly inferiorly at 6 o'clock position, noted on recent evaluation with mammogram and magnification images 11/21/2015. Informed consent was obtained from the patient. The left breast was placed in the stereotactic unit in a caudocranial approach. A survey film was obtained, the area of interest identified. Stereo views were obtained and the area of interest was targeted. The skin was prepped. Superficial local anesthesia was achieved utilizing 1% Xylocaine. Deeper anesthesia was achieved utilizing 1% Xylocaine with a 1:100,000 solution of Epinephrine. A small skin incision was made, needle inserted, pre and post-fire stereo-views verifies good positioning. Multiple cores were obtained utilizing a 9-G vacuum-assisted biopsy device. Specimen radiograph was obtained, and there are calcifications in multiple of the core specimens, which were inked for pathology. Tissue marker was placed. Needle removed. Hemostasis achieved. Left post-procedural mammographic images were obtained. Tissue marker is in good position. Hemostasis was reconfirmed. Pressure dressing and ice pack was applied. The patient received verbal and written post-biopsy instructions and left the department in stable condition without complaint or immediate complication. us Komal Mccall LABOR SUPERVISOR MAMMO ORDERABLES Final Result * MAMMO POST US/STEREO GUIDED PROCEDURE BILATERAL (12/06/2015 10:28 AM CDT) Anatomical Region Laterality Modality Breast Bilateral Mammography 12/06/2015 10:2 9 AM CDT Impressions 12/09/2015 3:22 PM CDT IMPRESSION: Successful stereotactic biopsy was performed on the left at the 6 o'clock position. We will await pathology results. PATHOLOGY RESULTS WERE REVIEWED 12/07/2015: MALIGNANT The stereotactic biopsy on the left at the 6 o'clock position was reported as malignant, moderately differentiated invasive ductal carcinoma and ductal carcinoma in situ. This can be considered concordant. with the imaging findings. RECOMMENDATION: Surgical consultation for therapeutic planning for the core biopsy-proven moderately differentiated invasive ductal carcinoma by stereotactic biopsy. 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 [id number] Narrative 12/09/2015 3:22 PM CDT STEREOTACTIC BIOPSY-LEFT BREAST: HISTORY: This 65-year-old female had several core biopsies this morning, this one a stereotactic biopsy of a 13 mm area of density and calcifications in the midportion of the left breast slightly inferiorly at 6 o'clock position, noted on recent evaluation with mammogram and magnification images 11/21/2015. Informed consent was obtained from the patient. The left breast was placed in the stereotactic unit in a caudocranial approach. A survey film was obtained, the area of interest identified. Stereo views were obtained and the area of interest was targeted. The skin was prepped. Superficial local anesthesia was achieved utilizing 1% Xylocaine. Deeper anesthesia was achieved utilizing 1% Xylocaine with a 1:100,000 solution of Epinephrine. A small skin incision was made, needle inserted, pre and post-fire stereo-views verifies good positioning. Multiple cores were obtained utilizing a 9-G vacuum-assisted biopsy device. Specimen radiograph was obtained, and there are calcifications in multiple of the core specimens, which were inked for pathology. Tissue marker was placed. Needle removed. Hemostasis achieved. Left post-procedural mammographic images were obtained. Tissue marker is in good position. Hemostasis was reconfirmed. Pressure dressing and ice pack was applied. The patient received verbal and written post-biopsy instructions and left the department in stable condition without complaint or immediate complication. us Komal Billingsley Mccall LABOR SUPERVISOR MAMMO ORDERABLES Final Result * MAMMO BREAST US BIOPSY LEFT (12/06/2015 9:13 AM CDT) Anatomical Region Laterality Modality Breast Left Ultrasound 12/06/2015 9:18 AM CDT Impressions 12/09/2015 3:22 PM CDT IMPRESSION: Successful left ultrasound-guided core biopsy of a 14 mm nodule at the 11 to 12 o'clock and of an abnormal lymph node in the left axilla. We will await pathology results. PATHOLOGY RESULTS REVIEWED 12/07/2015: MALIGNANT axillary lymph node biopsy and BENIGN breast biopsy. The ultrasound-guided needle biopsy performed on the left at the 11-12 o'clock position and the ultrasound-guided core biopsy performed of abnormal left axillary lymph node reported the axillary lymph node to be malignant, with metastatic adenocarcinoma and the ultrasound-guided core biopsy superiorly to reveal no malignancy, with intraductal papilloma and with focal atypical ductal hyperplasia with fibrocystic changes.. This is discordant with the imaging findings as regards the ultrasound-guided biopsy of the breast. RECOMMENDATION: The axillary lymph node biopsy revealed metastatic adenocarcinoma. The breast core biopsy revealed atypical ductal hyperplasia. In addition, the stereotactic biopsy revealed moderately differentiated invasive ductal carcinoma. There is also moderately differentiated invasive ductal carcinoma on ultrasound guided biopsy on the right. She will require surgical consultation for therapeutic planning for the bilateral invasive malignancies. [id number] Narrative 12/09/2015 3:22 PM CDT ULTRASOUND GUIDED NEEDLE BIOPSY - LEFT BREAST: HISTORY: This 65-year-old female had ultrasound-guided core biopsy of one area on the right today, and now presents for ultrasound-guided core biopsy of a nodular area superiorly on the left and of an abnormal left axillary lymph node. These were all noted on evaluation 11/21/2015. She also had stereotactic core biopsy of an area on the left today. PROCEDURE: Informed consent was obtained from the patient. The left breast was re-evaluated sonographically and the nodule re-identified at the 11-12 o'clock position. The left breast was prepped and draped in a sterile fashion. Local anesthesia was achieved utilizing 1% Xylocaine. A small skin jesse was made, needle inserted and with direct sonographic guidance, 5 cores were obtained utilizing a 14-G spring-loaded biopsy device. Tissue marker was placed. Hemostasis was achieved. The abnormally enlarged lymph node in the left axilla was then re-identified sonographically. This area was prepped and draped in a sterile fashion. Anesthesia was achieved utilizing 1% Xylocaine superficially. Small skin jesse was made. Needle inserted and with direct sonographic guidance, 6 cores were obtained, utilizing a 18-gauge spring-loaded biopsy device. Tissue marker was placed. Needle was removed. Hemostasis was achieved. Post-procedural CC and ML images were obtained. The tissue markers are in good position. Patient stated she tolerated the procedure quite well. Hemostasis was re-confirmed. Pressure dressing was applied. The patient received verbal and written post-biopsy instructions. She left the department in stable condition without complaint or immediate complication. us Komal Mccall LABOR SUPERVISOR MAMMO ORDERABLES Final Result * MAMMO BREAST US BIOPSY RIGHT (12/06/2015 9:11 AM CDT) Anatomical Region Laterality Modality Breast Right Ultrasound 12/06/2015 9:19 AM CDT Impressions 12/09/2015 3:22 PM CDT IMPRESSION: Successful right ultrasound-guided core biopsy of a 13 mm nodule at the 12-1 o'clock position. We will await pathology results. PATHOLOGY RESULTS REVIEWED 12/07/2015: MALIGNANT The ultrasound-guided needle biopsy performed on the right at the 12-1 o'clock position reported as malignant, moderately differentiated invasive ductal carcinoma with ductal carcinoma in situ. This is consistent with the imaging findings. RECOMMENDATION: Surgical consultation for therapeutic planning for the core biopsy-proven invasive ductal carcinoma on the right, and patient has core biopsy proven invasive ductal carcinoma on the left as well. [id number] Narrative 12/09/2015 3:22 PM CDT ULTRASOUND GUIDED NEEDLE BIOPSY - RIGHT BREAST: HISTORY: This 65-year-old female returns for right breast ultrasound-guided core biopsy of 13 mm spiculated mass 12-1 o'clock position superiorly, evaluated with mammogram and ultrasound 11/21/2015. She has had previous malignant lumpectomy outer on the right. She also had core biopsy of 2 lesions on the left, one by stereotactic biopsy and the other by ultrasound guidance, as well as ultrasound-guided biopsy of an abnormal appearing left axillary lymph node. These were all performed today. PROCEDURE: Informed consent was obtained from the patient. The right breast was re-evaluated sonographically and the nodule re-identified at the 12 to 1 o'clock position. The right breast was prepped and draped in a sterile fashion. Local anesthesia was achieved utilizing 1% Xylocaine. A small skin jesse was made, needle inserted and with direct sonographic guidance, 4 cores were obtained utilizing a 14-G spring-loaded biopsy device. Tissue marker was placed. Hemostasis was achieved. Post-procedural CC and ML images were obtained. The tissue marker is in good position. Patient stated she tolerated the procedure quite well. Hemostasis was re-confirmed. Pressure dressing was applied. The patient received verbal and written post-biopsy instructions. She left the department in stable condition without complaint or immediate complication. us Komal Mccall LABOR SUPERVISOR MAMMO ORDERABLES Final Result * MAMMO US BIOPSY LYMPH NODE LT (12/06/2015 9:10 AM CDT) Anatomical Region Laterality Modality Breast Left Ultrasound 12/06/2015 9:19 AM CDT Impressions 12/09/2015 3:22 PM CDT IMPRESSION: Successful left ultrasound-guided core biopsy of a 14 mm nodule at the 11 to 12 o'clock and of an abnormal lymph node in the left axilla. We will await pathology results. PATHOLOGY RESULTS REVIEWED 12/07/2015: MALIGNANT axillary lymph node biopsy and BENIGN breast biopsy. The ultrasound-guided needle biopsy performed on the left at the 11-12 o'clock position and the ultrasound-guided core biopsy performed of abnormal left axillary lymph node reported the axillary lymph node to be malignant, with metastatic adenocarcinoma and the ultrasound-guided core biopsy superiorly to reveal no malignancy, with intraductal papilloma and with focal atypical ductal hyperplasia with fibrocystic changes.. This is discordant with the imaging findings as regards the ultrasound-guided biopsy of the breast. RECOMMENDATION: The axillary lymph node biopsy revealed metastatic adenocarcinoma. The breast core biopsy revealed atypical ductal hyperplasia. In addition, the stereotactic biopsy revealed moderately differentiated invasive ductal carcinoma. There is also moderately differentiated invasive ductal carcinoma on ultrasound guided biopsy on the right. She will require surgical consultation for therapeutic planning for the bilateral invasive malignancies. [id number] Narrative 12/09/2015 3:22 PM CDT ULTRASOUND GUIDED NEEDLE BIOPSY - LEFT BREAST: HISTORY: This 65-year-old female had ultrasound-guided core biopsy of one area on the right today, and now presents for ultrasound-guided core biopsy of a nodular area superiorly on the left and of an abnormal left axillary lymph node. These were all noted on evaluation 11/21/2015. She also had stereotactic core biopsy of an area on the left today. PROCEDURE: Informed consent was obtained from the patient. The left breast was re-evaluated sonographically and the nodule re-identified at the 11-12 o'clock position. The left breast was prepped and draped in a sterile fashion. Local anesthesia was achieved utilizing 1% Xylocaine. A small skin jesse was made, needle inserted and with direct sonographic guidance, 5 cores were obtained utilizing a 14-G spring-loaded biopsy device. Tissue marker was placed. Hemostasis was achieved. The abnormally enlarged lymph node in the left axilla was then re-identified sonographically. This area was prepped and draped in a sterile fashion. Anesthesia was achieved utilizing 1% Xylocaine superficially. Small skin jesse was made. Needle inserted and with direct sonographic guidance, 6 cores were obtained, utilizing a 18-gauge spring-loaded biopsy device. Tissue marker was placed. Needle was removed. Hemostasis was achieved. Post-procedural CC and ML images were obtained. The tissue markers are in good position. Patient stated she tolerated the procedure quite well. Hemostasis was re-confirmed. Pressure dressing was applied. The patient received verbal and written post-biopsy instructions. She left the department in stable condition without complaint or immediate complication. Komal Mccall LABOR SUPERVISOR MAMMO ORDERABLES Final Result documented in this encounter Visit Diagnoses Diagnosis Abnormal findings on diagnostic imaging of breast- Primary Other (abnormal) findings on radiological examination of breast Abnormal findings on diagnostic imaging of breast Other (abnormal) findings on radiological examination of breast Abnormal findings on diagnostic imaging of breast Other (abnormal) findings on radiological examination of breast Abnormal findings on diagnostic imaging of breast Other (abnormal) findings on radiological examination of breast Abnormal findings on diagnostic imaging of breast Other (abnormal) findings on radiological examination of breast Abnormal findings on diagnostic imaging of breast Other (abnormal) findings on radiological examination of breast documented in this encounter Care Teams Flight Operation Coordinator Relationship Specialty Start Date End Date Marguerite Fernández DO [address] [place] [address] PCP - General Family Practice 12/29/18 documented as of this encounter
--- OUTSIDE RECORDS SUMMARY | 2024-12-31 23:03 | XMS_ITS ---
Author Organization [facility] Address [address] [place] [address] Phone Care Team Providers Care Student Success Coach Name Role Phone Marguerite Fernández Primary Care Provider Active Problems Problem Noted Date Diagnosed Date Environmental and seasonal allergies 06/14/2024 Influenza A 04/08/2023 Hypomagnesemia 04/08/2023 Hypokalemia 04/08/2023 Nonalcoholic hepatosteatosis 08/30/2022 Generalized anxiety disorder 11/18/2020 Primary insomnia 11/18/2020 History of breast cancer 11/18/2020 History of pulmonary embolism 02/22/2020 History of bilateral mastectomy 02/01/2020 Anemia of chronic disease 01/16/2019 Neck mass 07/29/2018 Sebaceous cyst 07/29/2018 Type 2 diabetes mellitus wit h stage 3b chronic kidney disease, without long-term current use of insulin 05/14/2018 Osteopenia of multiple sites 10/31/2016 Neuropathy due to chemotherapeutic drug 08/02/19 17 Elevated LFTs 06/27/2016 Neoplastic (malignant) related fatigue 7 Pulmonary nodules 01/27/2016 BRCA negative 01/24/2016 Left breast cancer- s/p Lt m astextomy \T\ ALND (01/28/16) - Stage III B 12/11/2015 Cancer Staging:Clinical stage from 12/11/2015:Stage IIA(T1c, N1, M0) - Signed by Andrew Dyer MD on 12/11/2015 Pathologic stage from 01/31/2016:Stage IIIB(T4b(2), N1a, cM0) - Signed by Andrew Dyer MD on 02/05/2016 Severe obesity (BMI 35.0-39.9) with comorbidity 12/11/2015 Postsurgical hypothyroidism 08/10/2009 Essential hypertension 08/10/2009 emt intermediate current use of aromatase inhibitor Current Treatment and Therapy Plans No current plan information found. Past Treatment and Therapy Plans ONCOLOGY THERAPY PLAN Plan Name Start Date Discontinue Date Treatment Medications Discontinue Reason Plan Provider OP ONC DENOSUMAB (PROLIA) FOR OSTEOPENIA WITH ANTI-HORMONE THERAPY - EVERY 6 MONTHS checked 09/1909/26/2020 11/29/2024 No medications scheduled. Therapy Complete Temi Bunch MD Lifetime Dose Tracking * Chemical Lifetime Dose Automatic Entry Manual Entr y doxorubicin 240.273 mg/m2 (540 mg) 0 mg/m2 (0 mg) 240 .273 mg/m2 (540 mg) Effective Dose 245.4 mSv 140.6 mSv 104.8 mSv Total DLP 14,845.1 DLP 8,097.1 DLP 6,748 DLP CTDIvol Max 284.7 mGy 88.2 mGy 196.5 mGy CTDIvol Min 211.2 mGy 50.6 mGy 160.6 mGy Resolved Problems Problem Noted Date Diagnosed Date Resolved Date Acute renal failure with acu te tubular necrosis superimposed on stage 3 chronic kidney disease 12/07/2018 11/18/2020 Acute cystitis without hematuria 12/07/2018 11/18/2020 Type 2 diabetes mellitus wit h hyperglycemia, without long-term current use of insulin 05/21/2017 11/18/2020 Acute bilateral pulmonary em bolism without cor pulmonale 10/02/16 10/02/2016 11/18/2020 Skin rash 06/27/2016 11/18/2020 Anemia in neoplastic disease 06/08/2016 11/18/2020 Hypokalemia 05/02/2016 11/18/2020 Leukopenia due to antineoplastic chemotherapy 05/02/19 17 11/18/2020 Rt breast Ca - s/p mast (01/28/16) 12/11/2015 07/05/2024 Cancer Staging:Clinical stage from 12/11/2015:Stage IA(T1c, N0, M0) - Signed by Andrew Dyer MD on 12/11/2015 Pathologic stage from 01/31/2016:Stage IA(T1c, N0, cM0) - Signed by Andrew Dyer MD on 02/05/2016 Pre-diabetes 08/12/2013 05/21/2017 DCIS Rt. breast - s/p lumpectomy (10/16/08) 10/16/2008 12/11/2015
--- OUTSIDE RECORDS SUMMARY | 2024-12-31 23:03 | XMS_ITS | Encounter Summary ---
Author Organization [facility] Address [address] [place] [address] Care Team Providers Care Broom Worker Name Role Phone Marguerite Fernández Primary Care Provider [phone] Reason for Referral * Outpatient Services (Routine) - Closed Specialty Diagnoses / Procedures Referred By Julia fraser Referred To Contact Diagnoses Nipple discharge, bloody Procedures MAMMO DIGITAL DIAG BILAT Komal Mccall APN [address] [address] Phone: tel: fax: Referral ID Status Reason Start Date Expiration Date Visits Re quested Visits Authorized [id number] Closed 11/20/2015 12/20/2016 1 1 Encounter Details Date Type Department Care Team (Latest Contact Info) Description 11/20/2015 Ancillary Orders [facility] Pre-Registration [place] CALL TO MAKE APPOINTMENT ONLY [address] [place] [id number] Komal Mccall APN 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 BREAST COMPOSITION: Scattered fibroglandular densities. FINDINGS: This digital mammogram was also analyzed by the Computer Aided Detection System (CAD), [employer] Image[employer]er, Version 8.3. Postsurgical changes are seen [...] The patient was given a result/recommendation letter. [id number] Procedure Note Sanjay Oliva MD - 11/21/2015 MAMMO DIGITAL DIAG BILAT, MAMMO BREAST US BILAT LTD INDICATION FOR EXAMINATION: Nipple discharge, bloody COMPARISONS: Mammogram dated 11/15/2014, 05/15/2014, 10/28/2013. BREAST COMPOSITION: Scattered fibroglandular densities. FINDINGS: This digital mammogram was also analyzed by the Computer Aided Detection System (CAD), [employer] ImageChecker, Version 8.3. Postsurgical changes are seen [...] The patient was given a result/recommendation letter. [id number] [facility] HOUSE PRINCIPAL MAMMO ORDERABLES Final Result documented in this encounter Visit Diagnoses Diagnosis Nipple discharge, bloody- Primary Other sign and symptom in breast Nipple discharge, bloody Other sign and symptom in breast documented in this encounter Care Teams Broom Worker Relationship Specialty Start Date End Date Marguerite Fernández DO [address] [place] [address] PCP - General Family Practice 12/29/18 documented as of this encounter
--- OUTSIDE RECORDS SUMMARY | 2024-12-31 23:03 | XMS_ITS | Encounter Summary ---
Author Organization [facility] Address [address] [place] [address] Care Team Providers Care Ramp Lead Name Role Phone Marguerite Fernández DO Primary Care Provider [phone] Reason for Visit * Reason Comments Medication Refill Encounter Details Date Type Department Care Team (Late st Contact Info) Description 11/10/2016 Refill [facility] [address] [address] Hernesto Duncan MD [address] [place] [address] Social History Tobacco Use Types Packs/Day Years Used Date Smoking Tobacco: Former Cigarettes 0 10/14/1979 - 10/13/1981 Smokeless Tobacco: Never Alcohol Use Standard Drinks/Week Comments No 0 (1 standard drink = 0.6 oz pur e alcohol) Comments No Sex and Gender Information Value Date Recorded Sex Assigned at Not on file 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
--- OUTSIDE RECORDS SUMMARY | 2024-12-31 23:03 | XMS_ITS | Encounter Summary ---
Author Organization [facility], [facility] Address [address] [place] [address] Phone Care Team Providers Care Track Coach Name Role Phone Marguerite Fernández DO Primary Care Provider [phone] Encounter Details Date Type Department Care Team (Late st Contact Info) Description 10/17/2019 Orders Only [facility] [address] [place] [address] Temi Cyr, VRT MECHANIC [address] [place] [address] Chronic kidney disease stage 3 (HCC) Social History Tobacco Use Types Packs/Day [...] on file Sexual Orientation Not on file COVID-19 Exposure Response Date Recorded In the last month, have you been in contact with someone who was confirmed or suspected to have Coronavirus / COVID-19? No / Unsure 10/18/2019 1:46 PM EDT documented as of this encounter Plan of Treatment Not on file documented as of this encounter Procedures Procedure Name Priority Date/Time Associated Diagnosis Comments VITAMIN D 25 HYDROXY Routine 10/10/2019 4:43 PM CDT Chronic kidney disease stage 3 (HCC) CBC Routine 10/10/2019 2:14 PM CDT Chronic kidney disease stage 3 (HCC) RENAL FUNCTION PANEL Routine 10/10/2019 2:14 PM CDT Chronic kidney disease stage 3 (HCC) URINE ALBUMIN / CREATININE RATIO Routine 10/10/2019 8:14 AM CDT Chronic kidney disease stage 3 (HCC) PTH, INTACT Routine 10/10/2019 8:04 AM CDT Chronic kidney disease stage 3 (HCC) documented in this encounter Results * Vit D 25 hydroxy (10/10/2019 4:43 PM CDT) Vitamin D, 25-Hydroxy 46 30 - 100 ng/mL [facility] Comment: Interpretive Data Chart: Deficient: 0 - 20 ng/mL Insufficient: 21 - 29 ng/mL Sufficient: 30 - 100 ng/mL Increased Risk of Hypercalciuria: >100 ng/ml Toxic: >150 ng/ml Performed at: [facility] [place] [address] Neon Electrician: Partha Pascual MD CLIA # [id number] Blood specimen (specimen) Venous blood / Unknown 10/10/2019 4:43 PM CDT 10/10/2019 3:08 PM CDT us Temi Cyr VRT MECHANIC LAB BLOOD ORDERABLES Final Resul t [facility] * CBC (10/10/2019 2:14 PM CDT) WBC 6.0 4.8 - 10.8 K/uL [facility] Red Blood Cells 4.30 4.20 - 5.40 M/uL [facility] Hgb 12.8 12.0 - 16.0 g/dL [facility] Hematocrit 39.2 36.0 - 46.0 % [facility] MCV 91.2 84.0 - 103.0 fL [facility] MCH 29.8 27.0 - 34.0 pg [facility] MCHC 32.7 30.0 - 35.0 g/dL [facility] Platelets 196 140 - 440 K/uL [facility] MPV 11.0 8.9 - 12.8 fL [facility] RDW 12.3 11.0 - 14.5 % [facility] RDW-SD 40.6 37.0 - 54.0 fL [facility] Comment: Performed at: [facility] [address] Neon Electrician: MD BRIDGET Wong # [id number] Blood specimen (specimen) Venous blood / Unknown 10/10/2019 2:14 PM CDT 10/10/2019 3:08 PM CDT us Temi Cyr VRT MECHANIC LAB BLOOD ORDERABLES Final Resul t [facility] * (ABNORMAL) Renal function panel (10/10/2019 2:14 PM CDT) Sodium 143 136 - 145 mmol/L [facility] Potassium 4.4 3.5 - 5.1 mmol/L [facility] Chloride 103 98 - 107 mmol/L [facility] Carbon Dioxide (CO2) 29 22 - 29 mmol/L [facility] Calcium 9.9 8.8 - 10.2 mg/dL [facility] BUN 15 8 - 23 mg/dL [facility] Creatinine 1.22(H) 0.51 - 0.95 mg/dL [facility] Comment:The GFR result is no t clinically significant on patients <18 or >70 years of age. Glucose 88 74 - 99 mg/dL [facility] Albumin 4.0 3.5 - 5.2 g/dL [facility] Phosphorus, Serum 3.0 2.5 - 4.5 mg/dL [facility] [...] please refer to the GFR result. eGFR 53 mL/min/1.7 3 sq meter [facility] [place] [facility]PLAC[facility] BY [facility] Anion Gap 11 9 - 20 mmol/L [facility] Comment: TEST COMMENT: Fasting?->No Performed at: [facility] [address] Neon Electrician: Partha Pascual MD CLIA # [id number] Blood specimen (specimen) Venous blood / Unknown 10/10/2019 2:14 PM CDT 10/10/2019 3:08 PM CDT Temi Cyr [facility] LAB BLOOD ORDERABLES Final Resul t [facility] * (ABNORMAL) Albumin / Creatinine Urine Ratio (10/10/2019 8:14 AM CDT) Albumin, Urine 6.9 mg/L [facility] Comment: ADDITIONAL INFORMATION This test has been modified from the district fire management officer's instructions. Its performance characteristics were determined by [facility] in a manner consistent with CLIA requirements. This test has not been cleared or approved by the U.S. Food and Drug Administration. Creatinine, Urine 20 mg/dL [facility] Alb/Creat Ratio, Ur 35(H) <25 mg/g [facility] [place] Jones NA Comment: Test Performed by: [address] [address] Neon Electrician: Fercho Robb M.D. Ph.D.; CLIA# [id number] Specimen Source: Urine, unspecified source Urine specimen (specimen) Urine specimen obtained by clean catch procedure / Unknown 10/10/2019 8:14 AM CDT 10/10/2019 3:08 PM CDT Temi Cyr CNP LAB URINE ORDERABLES Final Resul t Performing Organization Address [facility] de Phone Number FELIPE CAIN * PTH, intact (10/10/2019 8:04 AM CDT) Parathyroid Hormone, Intact 30 15 - 65 pg/mL [facility] Comment: Test Performed by: [facility] [address] [place] [address] Neon Electrician: Fercho Robb M.D. Ph.D.; CLIA# [id number] Blood specimen (specimen) Venous blood / Unknown 10/10/2019 8:04 AM CDT 10/10/2019 3:08 PM CDT Temi Cyr CNP LAB BLOOD ORDERABLES Final Resul t Performing Organization Address [facility] Co de Phone Number FELIPE CAIN documented in this encounter Visit Diagnoses Diagnosis Chronic kidney disease stage 3 (HCC) documented in this encounter Care Teams Track Coach Relationship Specialty Start Date End Date Marguerite Fernández DO PCP - General Family Medicine 10/18/19 documented as of this encounter
--- OUTSIDE RECORDS SUMMARY | 2024-12-31 23:03 | XMS_ITS | Clinical Summary ---
Author Organization [facility] de Address [address] [place] [address] Phone Care Team Providers Care Salesperson Neckties Name Role Phone Marguerite Fernández Primary Care Provider Allergies Active Allergy Reactions Criticality Noted Date Comments Iodinated Contrast Media Rash Low 01/08/2016 Latex Rash Low 01/28/2016 Patient states she can blow up latex balloons with no difficulty, can wear underwear with elastic, only complaint is redness with tape Medications OTHER 02/21/20 20 Active acetaminophen (TYLENOL) 325 mg tablet Take 650 mg by mouth 1 time daily as needed for Pain or Other (See Comment) (spasms). 12/09/19 19 Active CALCIUM-VITAMI N D3 ORAL Take 1 Tablet by mouth 2 times daily. 12/09/19 19 Active BIOTIN ORAL Take 1 Tablet by mouth daily. Active Restasis MultiDose 0.05 % Drops Administer 1 Drop in both eyes 2 times daily. 06/11/19 24 Active fluticasone propionate (FLONASE) 50 mcg/spray [place], Suspension nasal inhalerIndicat ions:Environme ntal and seasonal allergies Administer 2 Sprays in each nostril daily. shake before using 16 Gram 06/15/19 25 Active anastrozole (ARIMIDEX) 1 mg tabletIndicati ons:Cancer of midline of left female breast (CMS/HCC),long term current use of aromatase inhibitor TAKE ONE TABLET BY MOUTH DAILY 90 Tablet 3 10/06/19 25 Active SITagliptin phosphate (Januvia) 50 mg Tablet TAKE ONE-HALF TABLET BY MOUTH DAILY with BREAKFAST 45 Tablet 2 10/05/19 25 Active levothyroxine 100 mcg tablet TAKE ONE TABLET BY MOUTH DAILY IN THE MORNING 90 Tablet 1 10/05/19 25 Active LORazepam (ATIVAN) 1 mg tabletIndicati ons:Generalize d anxiety disorder TAKE ONE TABLET BY MOUTH EVERY DAY NEEDED FOR ANXIETY 30 Tablet 2 12/01/19 25 Active blood sugar diagnostic (OneTouch Verio test strips) StripIndicatio ns:Type 2 diabetes mellitus with stage 3b chronic kidney disease, without long-term current use of insulin USE 1 STRIP TO CHECK GLUCOSE ONCE DAILY 100 Each 6 12/29/19 25 Active HYDROcodone-ac etaminophen (NORCO) 5-325 mg tabletIndicati ons:Closed fracture of one rib of left side, initial encounter Take 1-2 Tablets by mouth every 6 hours as needed for Pain. Max Daily Amount: 8 Tablets 30 Tablet 12/29/19 25 Active blood sugar diagnostic (OneTouch Verio test strips) StripIndicatio ns:Type 2 diabetes mellitus with stage 3b chronic kidney disease, without long-term current use of insulin USE 1 STRIP TO CHECK GLUCOSE ONCE DAILY (E11.22) 100 Each 6 10/13/19 24 025 Discontinued Active Problems Problem Noted Date Diagnosed Date [...] 12/11/2015 Postsurgical hypothyroidism 08/10/2009 Essential hypertension 08/10/2009 senior living current use of aromatase inhibitor Resolved Problems [...] breast - s/p lumpectomy (10/16/08) 10/16/2008 12/11/2015 Encounters Date Type Department Care Team Description 12/29/2024 External Device Data [facility] [address] [place] [address] ROQUE BANEGAS [id number] Alena Sommer MD 12/28/2024 4:39 PM CDT - 12/28/2024 5:43 PM CDT Emergency [facility] Emergency Medicine [address] [place] [phone] Gasper Alonzo MD Closed fracture of one rib of left side, initial encounter (Primary Dx) Discharge Disposition: Home or Self Care 12/28/2024 [facility] [address] [place] [address] Marguerite Fernández, DO Type 2 diabetes mellitus with stage 3b chronic kidney disease, without long-term current use of insulin 11/30/2024 [facility] [address] [place] [phone] Marguerite Fernández, DO Generalized anxiety disorder 11/23/2024 [facility] [address] [place] [phone] Shahid Snowden, FLASH RANGING CREWMEMBER Generalized anxiety disorder 11/22/2024 External Device Data [facility]STRACTION Provider, Abstract 10/04/2024 [facility] [address] [place] [address] Alfredito Roth PA 10/04/2024 [facility] [address] [facility] [address] [place] [phone] Temi Bunch MD long term current use of aromatase inhibitor (Primary Dx); Left breast cancer- s/p Lt mastextomy \T\ ALND (01/28/16) - Stage III B from Last 3 Months Immunizations Immunization Administration Dates Next Due (PNEUMOVAX 23)(50 YRS UP) PN EUMOCOCCAL POLYSACCHARIDE (PPV23) 0.5 ML, IM 01/11/2020 (PREVNAR 13)(6 WKS UP) PNEUM OCOCCAL CONJUGATE (PCV13) 0.5 ML, IM 12/29/2018 (SHINGRIX)(50 YRS UP) ZOSTER VACCINE RECOMBINANT, 0.5 ML, IM 04/22/2020,02/22/2020 (SPIKEVAX) (12 YRS UP PRIMAR Y SERIES) COVID-19 VACCINE - MRNA-1273(PF) 100 MCG/0.5 ML IM SUSP 05/22/2021 Hepatitis B Vaccine 08/12/2001,12/16/2000 INFLUENZA VACCINE HIGH DOSE QUADRIVALENT 65 YR UP PF IM 02/05/2021,01/11/2020 Influenza Seasonal Unspecifi ed Formulation IM 12/22/2023,02/07/2022,12/31/2015 Influenza Vaccine High Dose 65+ Yrs IM 0,12/29/2018 Influenza Vaccine Tri Split 4+ Im 12/31/2015 PNEUMOVAX (PPSV23) pneumococ latisha polysaccharide 23-valent Vaccine 01/11/2020 PREVNAR (PCV13) pneumococcal 13-valent conjugate Vaccine 12/29/2018 Pneumococcal Polysaccharide Vacc 23-paramjit IM SCHIP 01/11/2020 Zoster Vaccine Live SQ 02/22/2020 Family History Medical History Relation Name Comments Breast Cancer Father Caio Parra Colon Cancer Father Caio Parra Breast Cancer Mother Steffanie Parra Breast Cancer Sister Katy Parra Breast Cancer Son Martin Jr Gael Blood emily e. Has to have blood taken off once a month Relation Name Status Comments Father Caio Parra Mother Steffanie Parra Sister Katy Parra Son Martin KeeJr tracy Alive Social History Tobacco Use Types Packs/Day Years Used Date Smoking Tobacco: Former Cigarettes 0.3 5 0 10/14/1979 - 10/13/1984 Passive Smoke Exposure: Never Smokeless Tobacco: Never Tobacco Cessation:Counseling Given: No Alcohol Use Standard Drinks/Week Comments Never 0 [...] asked 07/21/2019 How often do you attend religion or pentecostalism serv ices? Not asked 07/21/2019 Do you belong to any clubs o r organizations such as religion groups, unions, fraternal or athletic groups, or [...] worry about transportation for future doctor visits, miner pick medication, etc.? No 2024 Housing Stability Answer [...] on file Legal Sex Female 4:36 AM GAS [facility] Gender Identity Not on file Sexual Orientation [...] Mass Index 38 12/28/2024 4:42 PM CDT Plan of Treatment Upcoming Encounters Date Type Department Care Team (Late st Contact Info) Description 01/05/2025 9:40 AM CDT Office Visit [facility] [place] [address] [place] [address] Marguerite Fernández, DO [address] [place] [address] 01/16/2025 10:45 AM CDT Office Visit [facility] Endocrinology [facility] [address] [facility] [address] [place] [address] Alfredito Roth PA [address] [place] [address] 01/16/2025 11:00 AM CDT Appointment [facility] Scan Services Ravi Guzman [address] [facility] [address] [place] [address] Temi Bunch MD [address] [place] [address] 02/15/2025 1:25 PM GAS [facility] Appointment [facility] [address] [place] [address] 02/21/2025 11:30 AM GAS [facility] Office Visit [facility] Cancer and Hematology [place] [address] [facility] [address] [place] [address] Marisol Samuel FNP [address] [place] [address] Health Maintenance Due Date Last Done Comments DTAP/TDAP/TD VACCINES (1 - Tdap) 1969 RSV VACCINE (60+ or ) (1 - 1-dose 75+ series) 2023 DIABETES ANNUAL FOOT EXAM 07/08/20242023, 06/09/2022, 11/16/2020 INFLUENZA VACCINE (#1) 2024 , 02/07/2022, 02/07/2022, Additional history exists COVID-19 Vaccine ( - 2024-2 6 season) 2024 05/22/2021, 06/29/2020, 05/25/2020 DIABETES HBA1C Q 6 MONTHS 01/10/20252024, 07/11/2024, 01/08/2024, Additional history exists Traditional Medicare (ACO) A nnual Wellness Visit 06/30/2025 06/29/2024, 06/09/2022, 05/20/2021 DIABETES MICROALBUMIN ANNUAL SCREEN 07/11/2025 07/11/2024, 01/08/2024, 08/14/2023, Additional history exists DIABETES: A1C (Auto Order) 07/11/202507/11, 07/11/2024, 01/08/2024, Additional history exists LDL CHOLESTEROL ANNUAL 07/11/2025 5, 01/08/2024, 08/14/2023, Additional history exists DIABETES ANNUAL RETINAL EXAM 07/28/202510/2024, 07/28/2024, 04/29/2024, Additional history exists OSTEOPOROSIS SCREENING 03/06/2028 3, 11/01/2020, 10/31/2020, Additional history exists PNEUMOCOCCAL VACCINE 50+ YEARS Completed 1 , 01/11/2020, 01/11/2020, Additional history exists FIT/FOBT Q 1 year Discontinued 02/13/2020 ZOSTER VACCINE Completed 04/22/2020, 04/2019, 02/22/2020 Colorectal Cancer Screening Discontinued FIT-DNA Q 3 years Discontinued 10/22/2021 COLORECTAL SCREENING Discontinued Flex Sig/CT Colonography Q 5 years Discontinued Medical Devices Implanted Type Area It Consulting Manager Device Identifier Shelf Expiration Date Model / Serial / Lot Allomax Rctngl 8x16cm [id number] - [id number] Implanted:Qty: 1 on 01/28/2016 by Fercho Whaley MD Biological Left: Breast CR [employer]ARD[employer] 09/26/2020 [id number] / / [id number] Description:Soaked in : Sodi um Chloride irrigation solution, 0.9%, Lot# [id number], Exp: oct 2018Bacitracin 50,000 U lot# [id number], Exp: 11/07Gentamicin 80mg Lot# [id number], Exp: 01/06/Cefazolin 1gm, NDC: 72751-211-57, BUD: 02/08/2016 Allomax Rctngl 8x16cm [id number] - [id number] Implanted:Qty: 1 on 01/28/2016 by Fercho Whaley MD Biological Right: Breast [employer] 09/26/2020 [id number] / / [id number] Description:soaked in 0.9% s odium chloride irrigation, lot# [id number], exp: 11/08bacitracin 50,000 U Lot# [id number], Exp: 11/07Gentamicin 80mg, Lot# [id number], Exp: 01/06Cefazolin 1gm, NDC: 28490-387-81, BUD: 01/29/2016 Mmmry Slcn Smth Rnd Hp [id number] - [id number] Implanted:Qty: 1 on 01/28/2016 by Fercho Whaley MD Mammary Left: Breast [employer] 11/07/2020 [id number] / / [id number] Mmmry Slcn Smth Rnd Hp [id number] - [id number] Implanted:Qty: 1 on 01/28/2016 by Fercho Whaley MD Mammary Right: Breast [employer] 10/13/2020 [id number] / / [id number] Port Pwrprt Clr Jose 8fr Mri [id number] Implanted:Qty: 1 on 02/26/2016 by Boyd Rivera MD Port Right: Chest CR [employer]ARD[employer] 05/20/2017 [id number] / / [id number] Procedures Procedure Name Priority Date/Time Associated Diagnosis Comments TELEMETRY REPORT 12/29/2024 9:22 AM CDT XR RIBS UNILATERAL LEFT W PA CHEST Stat 12/28/2024 5:04 PM CDT HM DIABETES EYE EXAM Routine 07/28/2024 7:53 AM CDT LIPID PANEL Routine 07/11/2024 10:21 AM CDT Type 2 diabetes mellitus with stage 3 chronic kidney disease, without long-term current use of insulin, unspecified whether stage 3a or 3b CKD (CMS/HCC) HEMOGLOBIN A1C Routine 07/11/2024 10:21 AM CDT Type 2 diabetes mellitus with stage 3 chronic kidney disease, without long-term current use of insulin, unspecified whether stage 3a or 3b CKD (CMS/HCC) MICROALBUMIN/CREATI NINE RATIO, RANDOM UR Routine 07/11/2024 10:17 AM CDT Type 2 diabetes mellitus with stage 3b chronic kidney disease, without long-term current use of insulin (CMS/HCC) XR DEXA BONE DENSITY AXIAL 1 OR MORE SITES Routine 03/06/2023 3:30 PM GAS PROVER long term current use of aromatase inhibitor History of breast cancer COLON CANCER SCREEN, STOOL DNA Routine 10/22/2021 4:15 PM CDT Encounter for colorectal cancer screening DIABETES FOOT EXAM Routine 11/16/2020 OCCULT BLOOD IMMUNOASSAY, COLORECTAL SCREEN Routine 02/13/2020 9:13 AM GAS PROVER from Last 3 Months or Most Recently Relevant to Health Maintenance Results * TELEMETRY REPORT (12/29/2024 9:22 AM CDT) Provider Scanning ECG ORDERABLES Final Result * [...] MD DIAGNOSTIC IMAGING ORDER KIM Final Result * DIABETES EYE EXAM (07/28/2024 7:53 AM CDT) Abstract Provider HEALTH MAINTENANCE Edited Resu lt - Final * (ABNORMAL) HEMOGLOBIN A1C (07/11/2024 10:21 AM CDT) HEMOGLOBIN A1C 5.9(H) <5.7 % [facility] Comment: For someone without known diabetes, a hemoglobin A1c value between 5.7% and 6.4% is consistent with prediabetes and should be confirmed with a follow-up test. For someone with known diabetes, a value <7% indicates that their diabetes is well controlled. A1c targets should be individualized based on duration of diabetes, age, comorbid conditions, and other considerations. This assay result is consistent with an increased risk of diabetes. Currently, no consensus exists regarding use of hemoglobin A1c for diagnosis of diabetes for children. ESTIMATED AVERAGE GLUCOSE (MG/DL) 123 mg/dL [facility] ESTIMATED AVERAGE GLUCOSE (MMOL/L) 6.8 mmol/L [facility] Comment: FASTING:YES FASTING: YES Test Performed at: [facility] [address] [place] [address] Carolyn Mcfadden MD Blood 07/11/2024 10:2 1 AM CDT 07/11/2024 10:22 AM CDT Alfredito JACOBO CHEMISTRY ORDERABLES Final R esult [facility] [phone] [facility] [address] [place] [address] * (ABNORMAL) LIPID PANEL (07/11/2024 10:21 AM CDT) CHOLESTEROL 196 <200 mg/dL [facility] HDL 37(L) > OR = 50 mg/dL [facility] TRIGLYCERIDE 269(H) <150 mg/dL [facility] Comment: If a non-fasting specimen was collected, consider repeat triglyceride testing on a fasting specimen if clinically indicated. Fermin et al. J. of Clin. Lipidol. 2015;9:129-169. LDL CALCULATED 121(H) mg/dL (calc) [facility] Comment: Reference range: <100 Desirable range <100 mg/dL for primary prevention; <70 mg/dL for patients with CHD or diabetic patients with > or = 2 CHD risk factors. LDL-C is now calculated using the Keagan-Jimenez calculation, which is a validated novel method providing better accuracy than the Friedewald equation in the estimation of LDL-C. Keagan SS et al. RAEGAN. 2013;310(19): 9972-8015 (http://education.LeanApps/faq/VNE063) CHOL/HDL RATIO 5.3(H) <5.0 (calc) [facility] NON-HDL CHOLESTEROL 159(H) <130 mg/dL (calc) [facility] Comment: For patients with diabetes plus 1 major ASCVD risk factor, treating to a non-HDL-C goal of <100 mg/dL (LDL-C of <70 mg/dL) is considered a therapeutic option. Test Performed at: [email or web address] [address] [place] [address] Minor Wilkins Blood 07/11/2024 10:2 1 AM CDT 07/11/2024 10:22 AM CDT Alfredito JACOBO CHEMISTRY ORDERABLES Final R esult [facility] [phone] [facility] [address] [place] [address] * MICROALBUMIN/CREATININE RATIO, RANDOM UR (07/11/2024 10:17 AM CDT) CREATININE, URINE 83 20 - 275 mg/dL [facility] ALBUMIN, URINE 0.8 See Note: mg/dL [facility] Comment: Reference Range: Reference Range Not established ALB/CREAT RATIO, URINE 10 <30 mg/g creat [facility] Comment: The ADA defines abnormalities in albumin excretion as follows: Albuminuria Category Result (mg/g creatinine) Normal to Mildly increased <30 Moderately increased 30-299 Severely increased > OR = 300 The ADA recommends that at least two of three specimens collected within a 3-6 month period be abnormal before considering a patient to be within a diagnostic category. FASTING:YES FASTING: YES Test Performed at: [facility] [address] [place] [address] Carolyn Mcfadden MD Urine URINE SPECIMEN OBTAINED BY CLEAN CATCH PROCEDURE / Unknown 07/11/2024 10:17 AM CDT 07/11/2024 10:18 AM CDT us Marguerite Fernández DO URINE ORDERABLES Final Resu lt [facility] [phone] [facility] [address] [place] [address] * XR DEXA BONE DENSITY AXIAL 1 OR MORE SITES (03/06/2023 3:30 PM GAS [facility]) Anatomical Region Laterality Modality Nuclear Medicine 03/06/2023 3:30 PM GAS PR[facility] Impressions 03/06/2023 10:06 PM [facility] IMPRESSION: Abnormal examination Bone density lies in the osteopenic range in the right proximal femur having decreased somewhat by comparison lying at the average of the patient's age-matched control. Aromatase inhibitor use is noted. Narrative 03/06/2023 10:06 PM GAS PR[facility] DEXA Evaluation of the Lumbar Spine and Left/Right Proximal Femur Reason for Consultation: Aromatase inhibitor use for osteoporosis screening. Evaluation of bone mineral density. The following absorptiometry data were obtained. The quality of this examination is acceptable with regards to count density, processed images, data display and lack of important artifacts (including but not limited to motion and attenuation artifacts). Serial examination number 4 with comparison to prior exams from [id number]. L1-L4 BMD (g/cm2): 1.365 Adult T-score: 1.5 Adult Z-score: 2.2 Left/right femoral neck BMD (g/cm2): 1.002/0.904 Adult T-score: -0.3/-1.0 Adult Z-score: 0.9/0.2 Left/right total hip BMD (g/cm2): 1.066/1.060 Adult T-score: 0.5/0.4 Adult Z-score: 1.4/1.4 Procedure Note César Barr MD - 03/06/2023 DEXA Evaluation of the Lumbar Spine and Left/Right Proximal Femur Reason for Consultation: Aromatase inhibitor use for osteoporosis screening. Evaluation of bone mineral density. The following absorptiometry data were obtained. The quality of this examination is acceptable with regards to count density, processed images, data display and lack of important artifacts (including but not limited to motion and attenuation artifacts). Serial examination number 4 with comparison to prior exams from [id number]. L1-L4 BMD (g/cm2): 1.365 Adult T-score: 1.5 Adult Z-score: 2.2 Left/right femoral neck BMD (g/cm2): 1.002/0.904 Adult T-score: -0.3/-1.0 Adult Z-score: 0.9/0.2 Left/right total hip BMD (g/cm2): 1.066/1.060 Adult T-score: 0.5/0.4 Adult Z-score: 1.4/1.4 IMPRESSION: Abnormal examination Bone density lies in the osteopenic range in the right proximal femur having decreased somewhat by comparison lying at the average of the patient's age-matched control. Aromatase inhibitor use is noted. [facility] DIAGNOSTIC IMAGING ORDERABLES F inal Result * COLON CANCER SCREEN, STOOL DNA (10/22/2021 4:15 PM CDT) COLOGUARD RESULT Negative Negative [facility] Comment: NEGATIVE TEST RESULT. A negative Cologuard result indicates a low likelihood that a colorectal cancer (CRC) or advanced adenoma (adenomatous polyps with more advanced pre-malignant features) is present. The chance that a person with a negative Cologuard test has a colorectal cancer is less than 1 in 1500 (negative predictive value >99.9%) or has an advanced adenoma is less than 5.3% (negative predictive value 94.7%). These data are based on a prospective cross-sectional study of 10,000 individuals at average risk for colorectal cancer who were screened with both Cologuard and colonoscopy. (Benja Lynch al, N Engl J Med 2014;370(14):8457-4745) The normal value (reference range) for this assay is negative. COLOGUARD RE-SCREENING RECOMMENDATION: Periodic colorectal cancer screening is an important part of preventive healthcare for asymptomatic individuals at average risk for colorectal cancer. Following a negative Cologuard result, the [place] [employer] Society and U.S. Multi-Society Task Force screening guidelines recommend a Cologuard re-screening interval of 3 years. References: [place] [employer] Guideline for Colorectal Cancer Screening: https://www.cancer.org/cancer/akggf-yfwxlb-xksmbz/klxspzqor-qleefrcmj-iginfhf/ac s-rec ommendations.html.; Jamie DK, Lesvia CR, Yajaira SumnerK, Colorectal Cancer Screening: Recommendations for Physicians and Patients from the U.S. Multi-Society Task Force on Colorectal Cancer Screening , Am J Gastroenterology 2017; 112:5833-2927. TEST DESCRIPTION: Composite algorithmic analysis of stool DNA-biomarkers with hemoglobin immunoassay. Quantitative values of individual biomarkers are not reportable and are not associated with individual biomarker result reference ranges. Cologuard is intended for colorectal cancer screening of adults of either sex, 45 years or older, who are at average-risk for colorectal cancer (CRC). Cologuard has been approved for use by the U.S. FDA. The performance of Cologuard was established in a cross sectional study of average-risk adults aged 50-84. Cologuard performance in patients ages 45 to 49 years was estimated by sub-group analysis of near-age groups. Colonoscopies performed for a positive result may find as the most clinically significant lesion: colorectal cancer [4.0%], advanced adenoma (including sessile serrated polyps greater than or equal to 1cm diameter) [20%] or non- advanced adenoma [31%]; or no colorectal neoplasia [45%]. These estimates are derived from a prospective cross-sectional screening study of 10,000 individuals at average risk for colorectal cancer who were screened with both Cologuard and colonoscopy. (Benja Lynch al, N Engl J Med 2014;370(14):1322-5676.) Cologuard may produce a false negative or false positive result (no colorectal cancer or precancerous polyp present at colonoscopy follow up). A negative Cologuard test result does not guarantee the absence of CRC or advanced adenoma (pre-cancer). The current Cologuard screening interval is every 3 years. ([place] [employer] and U.S. Multi-Society Task Force). Cologuard performance data in a 10,000 patient pivotal study using colonoscopy as the reference method can be accessed at the following location: www.[employer].Surgimatix/results. Additional description of the Cologuard test process, warnings and precautions can be found at www.[email or web address].com. Stool STOOL SPECIMEN / Unknown 10/22/2021 4:15 PM CDT 10/23/2021 10:54 PM CDT Marguerite L Jolene DO BODY FLUIDS AND STOOLS Anila l Result [facility] CLIA # [id number] [address] [facility], [address] [place] [address] * DIABETES FOOT EXAM (11/16/2020) Marguerite Fernández DO HEALTH MAINTENANCE Edited R esult - Final * OCCULT BLOOD IMMUNOASSAY, COLORECTAL SCREEN (02/13/2020 9:13 AM GAS [facility]) OCCULT BLOOD, STOOL Negative Negative 02/13/2020 10:10 AM GAS PR[facility] Stool STOOL SPECIMEN / Unknown Collection / Unknown 02/13/2020 9:13 AM GAS PR[place] 02/13/2020 9:13 AM GAS [place] Marguerite Lan Jolene DO BODY FLUIDS AND STOOLS Anila l Result [facility] CLIA# [id number] [address] [place] [id number] from Last 3 Months or Most Recently Relevant to Health Maintenance Insurance [facility] [place] [address] MEDICARE PART A AND B Care Teams Salesperson Neckties Relationship Specialty Start Date End Date Marguerite Fernández DO [address] [place] [address] PCP - General Family Practice 12/29/18
--- OUTSIDE RECORDS SUMMARY | 2024-12-31 23:03 | XMS_ITS | Encounter Summary ---
Author Organization [place] [facility], [facility] Address [address] [place] [address] Phone Care Team Providers Care Dredge Master Name Role Phone Magruerite Fernández DO Primary Care Provider [phone] Encounter Details Date Type Department Care Team (Late st Contact Info) Description 07/19/2019 [facility] [address] [place] [address] Temi Cyr CNP [address] [place] [address] Chronic kidney disease stage 3 [...] or suspected to have Coronavirus / COVID-19? Unable to assess 07/18/2019 11:59 AM EDT documented as of this encounter Progress Notes * Temi Cyr CNP - 07/19/2019 2:01 AM CDT I called pt about her labs see phone note documented in this encounter Plan of Treatment Not on file documented as of this encounter Procedures Procedure Name Priority Date/Time Associated Diagnosis Comments CBC Routine 07/19/2019 10:43 AM CDT Chronic kidney disease stage 3 (HCC) PTH, INTACT Routine 07/19/2019 10:43 AM CDT Chronic kidney disease stage 3 (HCC) RENAL FUNCTION PANEL Routine 07/19/2019 10:43 AM CDT Chronic kidney disease stage 3 (HCC) documented in this encounter Results * PTH, intact (07/19/2019 10:43 AM CDT) PTH 47.4 15.0 - 65.0 pg/mL [facility] Comment: Performed at: [facility] [place] [address] Data Science And Iot Manager: Pratha Pascual MD CLIA # [id number] Blood specimen (specimen) Venous blood / Unknown 07/19/2019 10:43 AM CDT 07/19/2019 12:34 PM CDT us Temi Cyr CNP LAB BLOOD ORDERABLES Final Resul t [facility] * CBC (07/19/2019 10:43 AM CDT) WBC 9.1 4.8 - 10.8 K/uL [facility] Red Blood Cells 4.25 4.20 - 5.40 M/uL [facility] Hgb 12.8 12.0 - 16.0 g/dL [facility] Hematocrit 37.9 36.0 - 46.0 % [facility] MCV 89.2 84.0 - 103.0 fL [facility] MCH 30.1 27.0 - 34.0 pg [facility] MCHC 33.8 30.0 - 35.0 g/dL [facility] Platelets 206 140 - 440 K/uL [facility] MPV 10.7 8.9 - 12.8 fL [facility] RDW 12.4 11.0 - 14.5 % [facility] RDW-SD 40.4 37.0 - 54.0 fL [facility] Comment: Performed at: [facility] [place] [address] Data Science And Iot Manager: MD BRIDGET Wong # [id number] Blood specimen (specimen) Venous blood / Unknown 07/19/2019 10:43 AM CDT 07/19/2019 12:34 PM CDT us Temi Cyr [facility] LAB BLOOD ORDERABLES Final Resul t [facility] * (ABNORMAL) Renal function panel (07/19/2019 10:43 AM CDT) Sodium 137 136 - 145 mmol/L [facility] Potassium 5.1 3.5 - 5.1 mmol/L [facility] Chloride 99 98 - 107 mmol/L [facility] Carbon Dioxide (CO2) 27 22 - 29 mmol/L [facility] Calcium 9.8 8.8 - 10.2 mg/dL [facility] BUN 23 8 - 23 mg/dL [facility] Creatinine 1.78(H) 0.51 - 0.95 mg/dL [facility] Comment:The GFR result is no t clinically significant on patients <18 or >70 years of age. Glucose 103(H) 74 - 99 mg/dL [facility] Albumin 4.1 3.5 - 5.2 g/dL [facility] Phosphorus, Serum 2.8 2.5 - 4.5 mg/dL [facility] eGFR Non- 28 mL/min/1.7 3 sq meter [facility] [...] please refer to the GFR result. eGFR 34 mL/min/1.7 3 sq meter [facility] Anion Gap 11 9 - 20 mmol/L [facility] Comment: TEST COMMENT: Fasting?->No Performed at: [facility] [place] [address] Data Science And Iot Manager: Partha Pascual MD CLIA # [id number] Blood specimen (specimen) Venous blood / Unknown 07/19/2019 10:43 AM CDT 07/19/2019 12:34 PM CDT us Tmei Cyr COMPUTER SCIENCE INSTRUCTOR LAB BLOOD ORDERABLES Final Resul t [facility] documented in this encounter Visit Diagnoses Diagnosis Chronic kidney disease stage 3 (HCC) documented in this encounter Care Teams Dredge Master Relationship Specialty Start Date End Date Marguerite Fernández DO PCP - General Family Medicine 10/18/19 documented as of this encounter
--- OUTSIDE RECORDS SUMMARY | 2024-12-31 23:03 | XMS_ITS | Encounter Summary ---
Author Organization [facility] Address [address] [place] [address] Care Team Providers Care Jigger Operator Name Role Phone Marguerite Fernández DO Primary Care Provider Encounter Details Date Type Department Care Team (Latest Contact Info) Description 07/31/2015 Ancillary Orders [facility] Pre-Registration [place] CALL TO MAKE APPOINTMENT ONLY [address] [place] [address] Komal Mccall APN [address] [address] Encounter for screening mammogram for malignant neoplasm of breast (Primary Dx) Social History Tobacco Use Types Packs/Day Years Used Date Smoking Tobacco: Former Cigarettes 0 10/14/1979 - 10/13/1981 Smokeless Tobacco: Never Alcohol Use Standard Drinks/Week Comments No 0 (1 standard drink = 0.6 oz pur e alcohol) Comments No Sex and Gender Information Value Date Recorded Sex Assigned at Not on file Legal Sex Female 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 AM 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 SPECIALIST Gender Identity Not on file Sexual Orientation Not on file Occupation Industry Job Start Date Job End Date Not on file Not on file Not on file Not on file Not on file Not on file Not on file Not on file documented as of this encounter Plan of Treatment Not on file documented as of this encounter Visit Diagnoses Diagnosis Encounter for screening mammogram for malignant neoplasm of breast- Primary Other screening mammogram documented in this encounter Care Teams Jigger Operator Relationship Specialty Start Date End Date Marguerite Fernández DO [address] [place] [phone] PCP - General Family Practice 12/29/18 documented as of this encounter
--- OUTSIDE RECORDS SUMMARY | 2024-12-31 23:03 | XMS_ITS | Encounter Summary ---
Author Organization [facility] Address [address] [place] [address] Care Team Providers Care Neurology Stroke Physician Name Role Phone Marguerite Fernández DO Primary Care Provider Reason for Visit * Reason Comments Med Refill Encounter Details Date Type Department Care Team (Late st Contact Info) Description 12/28/[address] [facility] [place] [address] [place] [id number] Marguerite Fernández DO [address] [place] [address] Type 2 diabetes mellitus with stage 3b chronic kidney disease, without long-term current use of insulin Social History Tobacco Use Types Packs/Day Years [...] asked 07/21/2019 How often do you attend episcopal or scientologist serv ices? Not asked 07/21/2019 Do you belong to any clubs o r organizations such as episcopal groups, unions, fraternal or athletic groups, or [...] worry about transportation for future doctor visits, warehouse picker medication, etc.? No 2024 Housing Stability [...] on file Legal Sex Female 4:36 AM SUPERVISOR SHUTTLE FITTING Gender Identity Not on file Sexual Orientation Not on file documented as of this encounter Miscellaneous Notes * Telephone Encounter - Xochilt Breaux LPN - 12/28/2024 11:30 AM CDT Medication Refill Request Last Fill Date:10/13/23 #100 with 6 RF [id number] 06/29/24 Last labs 07/11/24 Recent and Future Visits: Recent Visits Date Type Provider Dept 06/29/24 Office Visit Marguerite Fernández, DO [facility] 06/14/24 Office Visit Shahid Snowden FNP [facility] 07/09/23 Office Visit Marguerite Fernández, DO [facility] Showing recent visits within past 540 days with a meds authorizing provider and meeting all other requirements Future Appointments Date Type Provider Dept 01/05/25 Appointment Marguerite Fernández, [facility] Showing future appointments within next 365 days with a meds authorizing provider and meeting all other requirements Last Labs: Lab Results Component Value Date/Time HGBA1C 5.9 (H) 07/11/2024 10:21 AM HGBA1C 6.1 (H) 01/08/2024 09:12 AM HGBA1C 6.6 (H) 08/14/2023 11:11 AM MALBUR 2.2 01/08/2024 09:10 AM LDLCALC 121 (H) 07/11/2024 10:21 AM CREAT 1.25 (H) 07/11/2024 10:21 AM Natalie Mayo - 1950 Check and review of the [place] PDMP performed on 12/28/2024 at 11:30 AM was documented in this encounter Plan of Treatment Upcoming Encounters Date Type Department Care Team (Late st Contact Info) Description 01/05/2025 9:40 AM CDT Office Visit [facility] [address] [place] [address] Marguerite Fernández, DO [address] [place] [address] 01/16/2025 10:45 AM CDT Office Visit [facility] [address] [place] [address] Alfredito Roth PA [address] [place] [address] 01/16/2025 11:00 AM CDT Appointment [facility] Neto Beggs [address] [facility] [address] [place] [address] Temi Bunch MD [address] [facility] [address] [place] [address] 02/15/2025 1:25 PM SUPERVISOR SHUTTLE FITTING Appointment [facility] [address] [facility] [address] [place] [address] 02/21/2025 11:30 AM SUPERVISOR SHUTTLE FITTING Office Visit [facility] [place] [address] [facility] [address] [place] [address] Marisol Samuel FNP [address] [place] [address] documented as of this encounter Visit Diagnoses Diagnosis Type 2 diabetes mellitus with stage 3b chronic kidney disease, without long-term current use of insulin documented in this encounter Additional Health Concerns Assessment Noted Time PHQ-9 Depression Total Score: 4 06/26/19 25 3:07 PM CDT documented as of this encounter Care Teams Neurology Stroke Physician Relationship Specialty Start Date End Date Marguerite Fernández DO [address] [place] [address] PCP - General Family Practice 12/29/18 documented as of this encounter
--- OUTSIDE RECORDS SUMMARY | 2024-12-31 23:03 | XMS_ITS | Encounter Summary ---
Author Organization [place] [facility], [facility] Address [address] [place] [address] Phone Care Team Providers Care Malt House Loader Name Role Phone Marguerite Fernández DO Primary Care Provider [phone] Encounter Details Date Type Department Care Team (Late st Contact Info) Description 12/08/2018 Orders Only [place] [facility] [address] [place] [address] Chronic kidney disease, stage 4 (severe) (HCC) Social History Tobacco Use Types Packs/Day [...] as of this encounter Visit Diagnoses Diagnosis Chronic kidney disease, stage 4 (severe) (HCC) documented in this encounter Care Teams Malt House Loader Relationship Specialty Start Date End Date Marguerite Fernández DO PCP - General Family Medicine 10/18/19 documented as of this encounter
--- OUTSIDE RECORDS SUMMARY | 2024-12-31 23:03 | XMS_ITS | Encounter Summary ---
Author Organization [place] [facility], [facility] Address [address] [place] [address] Phone Care Team Providers Care Die Mounter Name Role Phone Marguerite Fernández DO Primary Care Provider Encounter Details Date Type Department Care Team (Late st Contact Info) Description 04/19/2019 Orders Only [facility] [address] [place] [address] Majo Yudy [address] [place] [address] Chronic kidney disease, not otherwise specified Social History Tobacco Use Types Packs/Day Years [...] encounter Visit Diagnoses Diagnosis Chronic kidney disease, not otherwise specified documented in this encounter Care Teams Die Mounter Relationship Specialty Start Date End Date Marguerite Fernández DO PCP - General Family Medicine 10/18/19 documented as of this encounter
[2024-12-31 23:08] VITALS: BP 172/93; PULSE 86; RESP 18; TEMP 36.6; O2SAT 95
--- NOTE | 2024-12-31 23:35 | CTR_ITS ---
PROCEDURE INFORMATION: Exam: CT Chest Without Contrast; Diagnostic Exam date and time: 12/31/2024 11:57 PM Age: 74 years old Clinical indication: Other: Seizure; Additional info: Fall left sided chest pain TECHNIQUE: Imaging protocol: Diagnostic computed tomography of the chest without contrast. Radiation optimization: All CT scans at this facility use at least one of these dose optimization techniques: automated exposure control; mA and/or kV adjustment per patient size (includes targeted exams where dose is matched to clinical indication); or iterative reconstruction. COMPARISON: No relevant prior studies available. RADIATION DOSE METRICS: Total DLP (mGy-cm): 515.7 FINDINGS: Lungs: See Bones/joints finding. Pleural spaces: Unremarkable. No pneumothorax. No pleural effusion. Heart: Unremarkable. No cardiomegaly. No pericardial effusion. Lymph nodes: Unremarkable. No enlarged lymph nodes. Vasculature: Aortic and coronary atherosclerosis. 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 Adrenal glands: Right adrenal adenoma measures up to 2.4 cm in maximum dimension. Bones/joints: Small left effusion, likely posttraumatic . Fracture of the lateral aspect of left 3rd rib with associated focal airspace disease, likely contusion with other etiologies including infection not totally excluded. Mild degenerative changes of thoracic spine. Soft tissues: Unremarkable. CT/CT chest wo con [id number] IMPRESSION: 1. Small left effusion, likely posttraumatic . Fracture of the lateral aspect of left 3rd rib with associated focal airspace disease, likely contusion with other etiologies including infection not totally excluded. 2. Right adrenal adenoma measures up to 2.4 cm in maximum dimension. COMMENTS: Consistent with the [place] [employer]'s Incidental Findings Committee white paper (J Am Tina Radiol 2017): For any incidental adrenal lesion greater than or equal to 1 cm but less than or equal to 4 cm classified in this report as benign, likely benign, or containing fat (including classification as an adenoma or myelolipoma), no follow-up imaging is recommended per consensus recommendations based on imaging criteria. Further lab evaluation could be pursued if warranted based on clinical findings.
--- NOTE | 2024-12-31 23:35 | CTR_ITS ---
PROCEDURE INFORMATION: Exam: CT Head Without Contrast Exam date and time: 12/31/2024 11:57 PM Age: 74 years old Clinical indication: Other: Seizure; Additional info: Sz TECHNIQUE: Imaging protocol: Computed tomography of the head without contrast. Radiation optimization: All CT scans at this facility use at least one of these dose optimization techniques: automated exposure control; mA and/or kV adjustment per patient size (includes targeted exams where dose is matched to clinical indication); or iterative reconstruction. COMPARISON: CR XR facial bones min 3V* [id number] 08/30/2018 9:58 AM RADIATION DOSE METRICS: Total DLP (mGy-cm): 1263 FINDINGS: Brain: Cerebral volume loss, which may be age related. Periventricular white matter hypoattenuation is consistent with chronic ischemic small vessel disease. Womack-white differentiation is otherwise normal. No mass or mass effect. No hemorrhage. Cerebral ventricles: Ex vacuo ventricular dilatation. Paranasal sinuses: Visualized sinuses are unremarkable. No fluid levels. Mastoid air cells: Visualized mastoid air cells are well aerated. Orbital cavities: Bilateral cataract extractions are noted. Bones: Unremarkable. No acute fracture. Soft tissues: Unremarkable. Vasculature: Basilar artery atherosclerosis is present. CT/CT head wo con* [id number] IMPRESSION: Changes from chronic ischemic small vessel disease of periventricular white matter and cerebral volume loss. Otherwise, no acute intracranial process.
--- NOTE | 2024-12-31 23:37 | ECG_ITS ---
[facility] Date: 2024-12-31 Pat Name: Natalie [place] Department: Room: Gender: Female Bilingual Call Center Representative: : [id number] Requested By: Roosevelt Morales Order Number: [id number] Reading MD: MAUDE HENDRICKSON Measurements Intervals [place] Rate: 87 P: 36 TX: 132 QRS: 26 QRSD: 94 T: 59 QT: 372 QTc: 449 Interpretive Statements SINUS RHYTHM WITH FREQUENT SUPRAVENTRICULAR PREMATURE COMPLEXES ABNORMAL RHYTHM ECG No previous ECG available for comparison Electronically Signed On 01-01-2025 23:22:07 CDT by MAUDE HENDRICKSON [email or web address]
[2024-12-31 23:39] VITALS: BP 144/74; PULSE 83; O2SAT 93
[2024-12-31 23:43] LABS: Add Urine Microscopic? NO
[2024-12-31 23:54] LABS: PCP Screen Urine Negative (Negative)
[2025-01-01] VITALS (8 sets, daily range): BP systolic 128–177; BP diastolic 70–85; PULSE 71–86; RESP 13–20; O2SAT 92–98
[2025-01-01 00:06] LABS: Glucose Urine UA Norm (Normal); Nitrate Urine Negative (Negative); Specific Gravity, Urine 1.020 (1.005-1.030)
[2025-01-01 00:07] LABS: Charge for UA Resulting for Rev
--- NOTE | 2025-01-01 00:13 | ED_ITS ---
HPI - Seizure 2 General: Chief Complaint: Seizure Stated Complaint: shaking episodes Time Seen by Provider: 12/31/24 23:05 History of Present Illness: HPI Narrative: Patient is a 74-year-old female who presents to the ED after her daughter called 911 due to concerns of seizure-like activity during sleep. The patient reports she was going to sleep and having dreams when her daughter observed her shaking all over, similar to seizures the patient had experienced in 2000. The patient denies confusion upon awakening and states she was aware of her surroundings. This episode occurs in the context of a recent fall that occurred while hiking near [facility]. During that incident, the patient caught her toe on a rock, fell down an embankment, and grabbed a tree to prevent falling into water. She was rescued by bystanders who called an ambulance. She was evaluated at [facility] where imaging revealed a left rib fracture. Since the injury, she has been prescribed hydrocodone for pain management and was instructed to discontinue her lorazepam and venlafaxine. The patient reports coughing, pain with deep breathing, and a low-grade fever of 99.2?F measured this evening around 5 PM. She also checked her oxygen saturation, which was 95%. She denies urinary incontinence, tongue biting, or other post-ictal symptoms associated with the shaking episode. Seizure History: Yes (in 2000) Place: Home Related Data Home Medications ?Medication ?Instructions ?Recorded ?Confirmed anastrozole 1 mg tablet 1 mg PO DAILY 03/18/2303/18 buspirone 10 mg tablet 10 mg PO BID 03/18/23 citalopram 20 mg tablet 20 mg PO DAILY 03/18/2302/21 levothyroxine 88 mcg capsule 88 mcg PO DAILY 03/18/23 03/18/23 lorazepam 1 mg tablet 1 mg PO DAILY PRN 03/18/23 1 05/19/22 sitagliptin phosphate 50 mg tablet 50 mg PO DAILY 02/2103/18/23 (Brianne) venlafaxine 75 mg capsule,extended 75 mg PO DAILY 02/2103/18/23 release 24 hr Previous Rx's ?Medication ?Instructions ?Recorded azithromycin 250 mg tablet See Rx Instructions PO .COM PLEX #6 03/18/23 tabs prednisone 20 mg tablet 20 mg PO DAILY 5 days #5 tab s 03/18/23 Allergies Allergy/AdvReac Type Severity Reaction Status Date / Time Iodinated Contrast Media Allergy Unknown Verified 12/31/24 23:12 Physical Exam 2 Const: COMMON NORMALS: no acute distress and alert GENERAL APPEARANCE: c ooperative, anxious and diaphoretic; not frail appearing HENMT: COMMON NORMALS: normocephalic, atraumatic and Normal external nose present HEAD & SCALP: normocephalic and atraumatic FACE & SINUS: normal facial exam and face symmetric NOSE: Normal external nose present Eye: COMMON NORMALS: Equal, round and reactive pupils present and EOMs intact bilaterally PUPIL: Yes Equal, round and reactive pupils present Neck/C-Spine: GENERAL: Yes trachea midline Chest: CHEST: Yes Symmetrical chest wall rise Resp: COMMON NORMALS: normal respiratory effort, No retractions, No use of accessory muscles and clear to auscultation bilaterally AUSCULTATION: clear to auscultation bilaterally Cardio: COMMON NORMALS: regular rate and regular rhythm RATE: regular rate RHYTHM: regular rhythm GI: COMMON NORMALS: Normal to inspection, nondistended, normoactive bowel sounds present Extremity: COMMON NORMALS: no pedal edema Neuro: LUIS COMA SCALE: document GCS findings Luis coma scale eye opening: Spontaneous [place] coma scale verbal response: Orientated [place] coma scale motor response: Obey commands Luis coma scale total score: 15 COMMON NORMALS: moves all extremities, no focal motor deficits and no sensory deficits noted SENSORIUM/ORIENTATION: Yes alert SENSORY EXAM: Yes extremities (intact) Psych: COMMON NORMALS: speech normal SPEECH: Yes normal speech Course 2 Vital Signs: Vital signs: Vital Signs Temperature 98 F 12/31/24 23:08 Pulse Rate 71 01/01/25 03:10 Respiratory Rate 18 01/01/25 03:00 Blood Pressure 146/75 01/01/25 03:10 Pulse Oximetry 93 01/01/25 03:10 MDM - Seizure MDM Narrative Medical decision making narrative: No significant episodes of shaking while here. Vital signs been stable. She is afebrile. CBC BMP are normal. EKG is nonacute. Head CT shows changes of chronic ischemic small vessel disease, no acute process. Urinalysis shows no evidence of infection. 2+ blood is noted. Urine drug screen is positive for opiates which she was prescribed for pain related to rib fracture she has had a couple of apneic episodes here, but recovers on her own. Room air saturations are 93% in general. She is not tachypneic. CT of the chest shows a small left- sided effusion with a lateral left third rib fracture. Contusion is present. No specific treatment. First troponin is 14. 2-hour did not change. Symptoms are resolved here. She will be discharged. Lab Data 12/31/24 23:51 12/31/24 23:51 Labs: Radiology Impressions Chest CT 12/31/24 23:35 IMPRESSION: 1. Small left effusion, likely posttraumatic . Fracture of the lateral aspect of left 3rd rib with associated focal airspace disease, likely contusion with other etiologies including infection not totally excluded. 2. Right adrenal adenoma measures up to 2.4 cm in maximum dimension. COMMENTS: Consistent with the [employer]'s Incidental Findings Committee white paper (J Am Tina Radiol 2017): For any incidental adrenal lesion greater than or equal to 1 cm but less than or equal to 4 cm classified in this report as benign, likely benign, or containing fat (including classification as an adenoma or myelolipoma), no follow-up imaging is recommended per consensus recommendations based on imaging criteria. Further lab evaluation could be pursued if warranted based on clinical findings. Head CT 12/31/24 23:35 IMPRESSION: Changes from chronic ischemic small vessel disease of periventricular white matter and cerebral volume loss. Otherwise, no acute intracranial process. Laboratory Results WBC 7.79 10^3/uL (3.29-11.43) 12/31/24 23:51 RBC 4.81 10^6/uL (3.85-5.65) 12/31/24 23:51 Hgb 14.00 g/dL (11.27-16.99) 12/31/24 23:51 Hct 42.1 % (36-47) 12/31/24 23:51 MCV 87.5 fl (85-98) 12/31/24 23:51 MCH 29.1 pg (27-33) 12/31/24 23:51 MCHC 33.3 g/dL (30-55) 12/31/24 23:51 RDW 12.5 % (12.1-15.1) 12/31/24 23:51 Plt Count 196 10^3/cmm (157-399) 12/31/24 23:51 MPV 10.4 fL (7.4-10.4) 12/31/24 23:51 Neut % (Auto) 59.4 % 12/31/24 23:51 Lymph % (Auto) 26.6 % 12/31/24 23:51 [place] % (Auto) 12.1 % 12/31/24 23:51 Eos % (Auto) 1.0 % 12/31/24 23:51 Baso % (Auto) 0.6 % 12/31/24 23:51 Neut # (Auto) 4.63 10^3/uL (1.8-7.7) 12/31/24 23:51 Lymph # (Auto) 2.1 10^3/uL (0.8-4.8) 12/31/24 23:51 [place] # (Auto) 0.9 10^3/uL (0.2-0.9) 12/31/24 23:51 Eos # (Auto) 0.1 10^3/uL (0.0-0.8) 12/31/24 23:51 Baso # (Auto) 0.1 10^3/uL (0.0-0.1) 12/31/24 23:51 Nucleated RBC % (auto) 0 % 12/31/24 23:51 Nucleated RBCs # 0.0 /100WBC 12/31/24 23:51 Sodium 138 mmol/L (136-145) 12/31/24 23:51 Potassium 4.1 mmol/L (3.5-5.1) 12/31/24 23:51 Chloride 99 mmol/L (98-107) 12/31/24 23:51 Carbon Dioxide 24 mmol/L (22-29) 12/31/24 23:51 Anion Gap 19.1 (5-19) H 12/31/24 23:51 BUN 17 mg/dL (8-23) 12/31/24 23:51 Creatinine 0.9 mg/dL (0.5-0.9) 12/31/24 23:51 GFR Calculation Not Reportable 12/31/24 23:51 Glucose 144 mg/dL (65-115) H 12/31/24 23:51 Calculated Osmolality 290 mOsm/kg (285-295) 12/31/24 23:51 Lactic Acid 1.1 mmol/L (0.5-2.2) 12/31/24 23:51 Calcium 9.7 mg/dL (8.5-10.5) 12/31/24 23:51 Phosphorus 2.7 mg/dL (2.5-4.5) 12/31/24 23:51 Magnesium 2.2 mg/dL (1.7-2.3) 12/31/24 23:51 Total Bilirubin 1.1 mg/dL (0.15-1.2) 12/31/24 23:51 AST 38 U/L (0-32) H 12/31/24 23:51 ALT 42 U/L (0-33) H 12/31/24 23:51 Alkaline Phosphatase 93 U/L (35-105) 12/31/24 23:51 Creatine Kinase 105 U/L (26-192) 12/31/24 23:51 Troponin T Baseline 14 ng/L (0-10) H 12/31/24 23:51 Troponin T 120 Minute 13.57 ng/L (0-10) H 01/01/25 01:47 Delta Troponin T -0.43 ABS# (0-10) L 01/01/25 01:47 C-Reactive Protein 74.3 mg/L (0.0-4.9) H 12/31/24 23:51 Total Protein 6.8 g/dL (6.6-8.7) 12/31/24 23:51 Albumin 4.1 g/dL (3.5-5.2) 12/31/24 23:51 Globulin 2.7 g/dL (1.3-4.6) 12/31/24 23:51 Urine Color Yellow (Yellow) 12/31/24 23:15 Urine Appearance Clear (CLEAR) 12/31/24 23:15 Urine pH 5 (5-7) 12/31/24 23:15 Ur Specific [place] 1.020 (1.005-1.030) 12/31/24 23:15 Urine Protein Trace (Negative) 12/31/24 23:15 Urine Glucose (UA) Norm (Normal) 12/31/24 23:15 Urine Ketones Negative (Negative) 12/31/24 23:15 Urine Blood 2+ (Negative) H 12/31/24 23:15 Urine Nitrate Negative (Negative) 12/31/24 23:15 Urine Bilirubin Neg (Negative) 12/31/24 23:15 Urine Urobilinogen Norm mg/dL (Negative) 12/31/24 23:15 Ur Leukocyte Esterase Negative (Negative) 12/31/24 23:15 Amorphous Sediment Not Reportable 12/31/24 23:15 Urine Opiates Screen Positive ng/mL (Negative) H 12/31/24 23:15 Ur Barbiturates Screen Negative ng/mL (Negative) 12/31/24 23:15 Ur Phencyclidine Scrn Negative ng/mL (Negative) 12/31/24 23:15 Ur Amphetamines Screen Negative ng/mL (Negative) 12/31/24 23:15 U Benzodiazepines Scrn Negative ng/mL (Negative) 12/31/24 23:15 Urine Cocaine Screen Negative ng/mL (Negative) 12/31/24 23:15 U Marijuana (THC) Screen Negative ng/mL (Negative) 12/31/24 23:15 All radiology interpretation(s) finalized by discharge Discharge Plan Discharge Patient Disposition: Home Clinical Impression: Fracture of rib Contusion of left lung Qualifiers: Encounter type: initial encounter Qualified Code(s): S27.321A - Contusion of lung, unilateral, initial encounter Condition: Stable Prescriptions: No Action anastrozole 1 mg tablet 1 mg PO DAILY venlafaxine 75 mg capsule,extended release 24hr 75 mg PO DAILY citalopram 20 mg tablet 20 mg PO DAILY levothyroxine 88 mcg capsule 88 mcg PO DAILY buspirone 10 mg tablet 10 mg PO BID lorazepam 1 mg tablet 1 mg PO DAILY PRN Januvia 50 mg tablet 50 mg PO DAILY prednisone 20 mg tablet 20 mg PO DAILY 5 Days Qty: 5 0RF azithromycin 250 mg tablet See Rx Instructions PO .COMPLEX Qty: 6 0RF Rx Instructions: take 500 mg today (day 1), then 250 mg for 4 days (days 2-5) PO Discharge Orders: Discharge ED (Routine); Ordered 01/01/25 Ordered By: Roosevelt Jacobson Patient Instructions: Rib Fracture (ED), Pulmonary Contusion (ED), Opioid Safety, Pain Management, Patient Portal & Josefina Instructions Activity Restrictions/Additional Instructions: Return for altered mental status, repeated episodes of shaking/seizure, worsening trouble breathing, fever greater than 100 ?F, or other concerning symptoms. Follow-up with your doctor. Limit the use of pain medication is much as possible. Print Language: Yakut Coding Level of Care Code ED [employer] for Ginette Marshall
[2025-01-01 00:28] LABS: Troponin(5th) Baseline 14 ng/L (0-10)
[2025-01-01 00:30] LABS: Hematocrit 42.1 % (36-47); Hemoglobin 14.00 g/dL (11.27-16.99); Lactic Sepsis W/Reflex 1.1 mmol/L (0.5-2.2); Mean Corpuscular HGB Conc 33.3 g/dL (30-55); Mean Corpuscular Hemoglobin 29.1 pg (27-33); Mean Corpuscular Volume 87.5 fl (85-98); Nucleated Red Blood Cells % 0 %; Platelet Count 196 10^3/cmm (157-399); Red Blood Count 4.81 10^6/uL (3.85-5.65); White Blood Count 7.79 10^3/uL (3.29-11.43)
[2025-01-01 00:33] LABS: Alanine Aminotransferase 42 U/L (0-33); Albumin Level 4.1 g/dL (3.5-5.2); Alkaline Phosphatase 93 U/L (35-105); Anion Gap 19.1 (5-19); Aspartate Amino Transferase 38 U/L (0-32); Blood Urea Nitrogen 17 mg/dL (8-23); Calcium 9.7 mg/dL (8.5-10.5); Carbon Dioxide 24 mmol/L (22-29); Chloride 99 mmol/L (98-107); Globulin 2.7 g/dL (1.3-4.6); Glucose 144 mg/dL (65-115); Magnesium 2.2 mg/dL (1.7-2.3); Osmolality Calculated 290 mOsm/kg (285-295); Potassium 4.1 mmol/L (3.5-5.1); Sodium 138 mmol/L (136-145); Total Protein 6.8 g/dL (6.6-8.7)
--- NOTE | 2025-01-01 01:37 | ECG_ITS ---
[facility] Test Date: 2025-01-01 Pat Name: Natalie Mayo Department: Room: Gender: Female [employer]: : 1950 Requested By: Roosevelt Morales Order Number: [id number] Reading MD: MAUDE HENDRICKSON Measurements Intervals [place] Rate: 80 P: 29 SD: 141 QRS: 34 QRSD: 90 T: 52 QT: 385 QTc: 447 Interpretive Statements SINUS RHYTHM Compared to ECG 12/31/2024 23:08:19 No significant changes Electronically Signed On 01-01-2025 23:28:04 CDT by MAUDE HENDRICKSON [id number]
[2025-01-01 02:08] LABS: Troponin 5 2HR 13.57 ng/L (0-10)
[2025-01-01 02:14] LABS: Troponin 5 2HR Delta -0.43 ABS# (0-10)
== END 2025-01-01 03:25 | disposition home or self-care (01) ==
PROVIDERS: Emergency Provider Emergency Medicine
DX: S22.32XA Fracture of one rib, left side, initial encounter for closed fracture (principal); S27.321A Contusion of lung, unilateral, initial encounter; W17.81XA Fall down embankment (hill), initial encounter; J90 Pleural effusion, not elsewhere classified
CPT/HCPCS: 36415; 70450; 71250; 80053; 80306; 81003; 82550; 83605; 83735; 84100; 84484; 85025; 86140; 93005; 99284